=== PATIENT | female | born 1985 | race Two or more races ===

== ENCOUNTER 2018-01-17 01:16 | Inpatient (IN) | payer BC ==
[2018-01-17] MEDS ORDERED: Nalbuphine 10 MG/1 ML Vial IVPUSH PRN (02:03)
[2018-01-17] MEDS ORDERED: Sodium Chloride 0.9% 2.5 ML Syringe FLUSH PRN (02:03)
[2018-01-17] MEDS ORDERED: Misoprostol 25 MCG (1/4 of 100 MCG) Tab VAG PRN ×2 (02:03→06:03)
[2018-01-17] MEDS ORDERED: Tranexamic Acid 1,000 MG in Sodium Chloride 0.9% 100 ML IV PRN (02:03)
[2018-01-17] MEDS ORDERED: Misoprostol 200 MCG Tab PO PRN (02:03)
[2018-01-17] MEDS ORDERED: Lidocaine 1% 50 ML MDV INJECT PRN (02:03)
[2018-01-17] MEDS ORDERED: Terbutaline 1 MG/ML SDV SUBCUT PRN (02:03)
[2018-01-17] MEDS ORDERED: Water For Irrigation,Sterile 1,000 ML Container IRR PRN (02:03)
[2018-01-17] MEDS ORDERED: Sodium Chloride 0.9% 10 ML Syringe FLUSH PRN (02:03)
[2018-01-17] MEDS ORDERED: Carboprost Tromethamine 250 MCG/1 ML Amp IM PRN (02:03)
[2018-01-17] MEDS ORDERED: Methylergonovine 0.2 MG/1 ML Amp IM PRN (02:03)
[2018-01-17] MEDS ORDERED: Oxytocin/0.9 % Sodium Chloride 30 UNIT/500 ML BAG IV SCH ×2 (02:15)
[2018-01-17] MEDS: Lactated Ringers 1,000 ML IV SCH ×4 (02:16→18:27)
[2018-01-17] MEDS: Butorphanol 1 MG/ML SDV IVPUSH PRN ×3 (14:25→17:17)
[2018-01-17] MEDS ORDERED: Ropivacaine 0.2% 2 MG/ML 20 ML SDV ONE (17:21)
--- NOTE | 2018-01-17 17:52 | PCM.PREANE ---
Preanesthetic Assessment - Procedure Proposed Procedure: labor epidural post dates - Anesthesia/Transfusion/Family Hx Anesthesia History: Prior Anesthesia Without Reaction Family History of Anesthesia Reaction: No Transfusion History: No Prior Transfusion(s) - Physical Assessment Height: 5 ft Weight: 103.419 kg ASA Class: 2 Mental Status: Alert & Oriented x3 Airway Class: Mallampati = 2 Dentition: Reports: Normal Dentition Thyro-Mental Finger Breadths: 3 Mouth Opening Finger Breadths: 3 ROM/Head Extension: Full - Lab Values: Laboratory Last Values WBC 9.81 K/uL (4.0-11.0) 01/17/18 02:15 RBC 4.30 M/uL (4.30-5.90) 01/17/18 02:15 Hgb 12.9 g/dL (12.0-16.0) 01/17/18 02:15 Hct 37.3 % (36.0-46.0) 01/17/18 02:15 MCV 86.7 fL (80.0-98.0) 01/17/18 02:15 MCH 30.0 pg (27.0-32.0) 01/17/18 02:15 MCHC 34.6 g/dL (31.0-37.0) 01/17/18 02:15 RDW Std Deviation 43.9 fl (28.0-62.0) 01/17/18 02:15 RDW Coeff of Zachariah 14 % (11.0-15.0) 01/17/18 02:15 Plt Count 214 K/uL (150-400) 01/17/18 02:15 MPV 9.00 fL (7.40-12.00) 01/17/18 02:15 Nucleated RBC % 0.0 /100WBC 01/17/18 02:15 Nucleated RBCs # 0 K/uL 01/17/18 02:15 Blood Type O POSITIVE 01/17/18 02:15 Antibody Screen NEGATIVE 01/17/18 02:15 - Allergies Allergies/Adverse Reactions: Allergies Allergy/AdvReac Type Severity Reaction Status Date / Time seasonal Allergy Mild Wheezing Uncoded 01/17/18 02:02 - Blood Blood Available: Yes Product(s) Available: PRBC - Acknowledgements Anesthesia Type Planned: Epidural Pt an Appropriate Candidate for the Planned Anesthesia: Yes Alternatives and Risks of Anesthesia Discussed w Pt/Guardian: Yes Pt/Guardian Understands and Agrees with Anesthesia Plan: Yes PreAnesthesia Questionnaire 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 USE Smoking Status *Q: Former Smoker Tobacco Use Within Last Twelve Months: No Second Hand Smoke Exposure: No Recreational Drug Use History: No - HOME MEDS Home Medications: Home Meds Acetaminophen [Tylenol] 2 tab PO Q4H PRN 01/17/18 [History] Albuterol Sulfate [Proair Respiclick] 2 puff INH QID PRN 01/17/18 [History] Calcium Carbonate/Vitamin D3 [Calcium 500 mg Chewable Tablet] 1 tab PO BID 01/17 [History] Fexofenadine [Natty] 1 tab PO DAILY 01/17/18 [History] Fish Oil/[place]-3 Fatty Acids [Fish Oil 1,000 MG] 1 cap PO BID 01/17/18 [History] Fluticasone Propionate [Flovent HFA 110 MCG] 2 puff INH BID PRN 01/17/18 [ History] PNV95/Ferrous Fumarate/FA [ Vitamin Tablet] 1 tab PO DAILY 01/17/18 [ History] - CURRENT (IN HOUSE) MEDS Current Meds: Current Medications Butorphanol Tartrate (Stadol) 1 mg IVPUSH Q1H PRN PRN Reason: Pain Last Admin: 01/17/18 17:17 Dose: 1 mg Carboprost Tromethamine (Hemabate Ds) 250 mcg IM ASDIRECTED PRN PRN Reason: Post Hemorrhage Lactated Ringer's (Ringers, Lactated) 1,000 mls @ 150 mls/hr IV ASDIRECTED SUNITHA Last Admin: 01/17/18 17:08 Dose: 999 mls/hr Oxytocin/Sodium Chloride (Oxytocin 30 Unit/500 Ml-Ns) 30 unit in 500 mls @ 999 mls/hr IV TITRATE SUNITHA Oxytocin/Sodium Chloride (Oxytocin 30 Unit/500 Ml-Ns) 30 unit in 500 mls @ 2 mls/hr IV TITRATE SUNITHA; Protocol Last Titration: 01/17/18 15:44 Dose: 20 munits/min, 20 mls/hr Tranexamic Acid 1,000 mg/ (Sodium Chloride) 110 mls @ 660 mls/hr IV ONETIME PRN PRN Reason: Bleeding Lidocaine HCl (Xylocaine 1%) 50 ml INJECT ONETIME PRN PRN Reason: Laceration repair Methylergonovine Maleate (Methergine) 0.2 mg IM ASDIRECTED PRN PRN Reason: Post Hemorrhage Misoprostol (Cytotec) 200 mcg PO ONETIME PRN PRN Reason: Post Hemorrhage Misoprostol (Cytotec) 25 mcg VAG ONETIME PRN PRN Reason: Cervical Ripening Last Admin: 01/17/18 02:29 Dose: 25 mcg Misoprostol (Cytotec) 25 mcg VAG Q4H PRN PRN Reason: Cervical Ripening Last Admin: 01/17/18 06:25 Dose: 25 mcg Nalbuphine HCl (Nubain) 10 mg IVPUSH Q1H PRN PRN Reason: Pain (severe 7-10) Sodium Chloride (Saline Flush) 10 ml FLUSH ASDIRECTED PRN PRN Reason: Keep Vein Open Sodium Chloride (Saline Flush) 2.5 ml FLUSH ASDIRECTED PRN PRN Reason: Keep Vein Open Sterile Water (Sterile Water For Irrigation) 1,000 ml IRR ASDIRECTED PRN PRN Reason: delivery Terbutaline Sulfate (Brethine) 0.25 mg SUBCUT ASDIRECTED PRN PRN Reason: Tacysystole Discontinued Medications Fentanyl/Bupivacaine HCl (Dqffvsoo-Fiesn-Gz 2 Mcg/Ml-0.125%) Confirm Administered Dose 100 mls @ as directed EP .STK-MED ONE Stop: 01/17/18 17:21 Ropivacaine (Naropin 0.2%) Confirm Administered Dose 20 ml .ROUTE .STK-MED ONE Stop: 01/17/18 17:22
[2018-01-17] MEDS ORDERED: Bisacodyl 10 MG Supp RECTAL PRN (21:21)
[2018-01-17] MEDS ORDERED: Witch Hazel Medicated Pads 40/Jar TOP PRN (21:21)
[2018-01-17] MEDS ORDERED: Ondansetron 4 MG/2 ML SDV IVPUSH PRN (21:21)
[2018-01-17] MEDS ORDERED: Simethicone 80 MG Tab.Chew PO PRN (21:21)
[2018-01-17] MEDS ORDERED: Benzocaine/Menthol 20%-0.5% Spray 78 GM Cannister TOP PRN (21:21)
[2018-01-17] MEDS ORDERED: Lanolin 100% Cream 7 GM Tube TOP PRN (21:21)
[2018-01-17] MEDS ORDERED: oxyCODONE 5 MG Tab PO PRN (21:21)
[2018-01-17] MEDS ORDERED: Acetaminophen 500 MG Tab PO PRN ×2 (21:21)
[2018-01-17] MEDS ORDERED: Ibuprofen 400 MG Tab PO PRN (21:21)
--- NOTE | 2018-01-17 21:29 | PCM.DEL ---
<Lorenza Leslie K - Last Filed: 01/17/18 21:24> L & D Note - General Info Date of Service: 01/17/18 Mother's Due Date: 01/13/18 - Delivery Note Labor: Induced by ARM, Induced by Oxytocin Cervical Ripening Method: Misoprostil Delivery Outcome: Livebirth Delivery Method: Spontaneous Vaginal Delivery-Single Presentation: Left Occiput Anterior (RILEY) Nuchal Cord: None Anesthesia Type: Epidural Amniotic Fluid Description: Clear Episiotomy Type: None Laceration: 1st Degree, Perineal Suture type: Vicryl Suture size: 3-0 Placenta: Intact, Spontaneous Cord: 3 Vessels Resuscitation Needed: No : Bulb Syringe, Stimulated, Warmed Score 1 min: 6 Score 5 min: 8 - General Info Date of Service: 01/17/18 - Patient Data Weight - Most Recent: 103.419 kg Lab Results Last 24 Hours: Laboratory Results - last 24 hr 01/17/18 01/17/18 Range/Units 02:15 02:15 WBC 9.81 (4.0-11.0) K/uL RBC 4.30 (4.30-5.90) M/uL Hgb 12.9 (12.0-16.0) g/dL Hct 37.3 (36.0-46.0) % MCV 86.7 (80.0-98.0) fL MCH 30.0 (27.0-32.0) pg MCHC 34.6 (31.0-37.0) g/dL RDW Std Deviation 43.9 (28.0-62.0) fl RDW Coeff of Zachariah 14 (11.0-15.0) % Plt Count 214 (150-400) K/uL MPV 9.00 (7.40-12.00) fL Nucleated RBC % 0.0 /100WBC Nucleated RBCs # 0 K/uL Blood Type O POSITIVE Antibody Screen NEGATIVE Med Orders - Current: Current Medications Acetaminophen (Tylenol Extra Strength) 500 mg PO Q4H PRN PRN Reason: Pain Acetaminophen (Tylenol Extra Strength) 1,000 mg PO Q4H PRN PRN Reason: Pain Benzocaine/Menthol (Dermoplast Pain Relief 20%-0.5% [place]) 78 gm TOP ASDIRECTED PRN PRN Reason: Perineal Comfort Measure Bisacodyl (Dulcolax) 10 mg RECTAL ONETIME PRN PRN Reason: Constipation Butorphanol Tartrate (Stadol) 1 mg IVPUSH Q1H PRN PRN Reason: Pain Last Admin: 01/17/18 17:17 Dose: 1 mg Carboprost Tromethamine (Hemabate Ds) 250 mcg IM ASDIRECTED PRN PRN Reason: Post Hemorrhage Docusate Sodium (Colace) 100 mg PO BID PRN PRN Reason: Constipation Emollient Ointment (Lansinoh Hpa) 0 gm TOP ASDIRECTED PRN PRN Reason: Sore Nipples Lactated Ringer's (Ringers, Lactated) 1,000 mls @ 150 mls/hr IV ASDIRECTED SUNITHA Last Admin: 01/17/18 18:27 Dose: 150 mls/hr Oxytocin/Sodium Chloride (Oxytocin 30 Unit/500 Ml-Ns) 30 unit in 500 mls @ 999 mls/hr IV TITRATE SUNITHA Oxytocin/Sodium Chloride (Oxytocin 30 Unit/500 Ml-Ns) 30 unit in 500 mls @ 2 mls/hr IV TITRATE SUNITHA; Protocol Last Titration: 01/17/18 19:07 Dose: 10 munits/min, 10 mls/hr Tranexamic Acid 1,000 mg/ (Sodium Chloride) 110 mls @ 660 mls/hr IV ONETIME PRN PRN Reason: Bleeding Ibuprofen (Motrin) 400 mg PO Q4H PRN PRN Reason: Pain Ibuprofen (Motrin) 800 mg PO Q6H PRN PRN Reason: Pain Lidocaine HCl (Xylocaine 1%) 50 ml INJECT ONETIME PRN PRN Reason: Laceration repair Methylergonovine Maleate (Methergine) 0.2 mg IM ASDIRECTED PRN PRN Reason: Post Hemorrhage Misoprostol (Cytotec) 200 mcg PO ONETIME PRN PRN Reason: Post Hemorrhage Misoprostol (Cytotec) 25 mcg VAG ONETIME PRN PRN Reason: Cervical Ripening Last Admin: 01/17/18 02:29 Dose: 25 mcg Misoprostol (Cytotec) 25 mcg VAG Q4H PRN PRN Reason: Cervical Ripening Last Admin: 01/17/18 06:25 Dose: 25 mcg Nalbuphine HCl (Nubain) 10 mg IVPUSH Q1H PRN PRN Reason: Pain (severe 7-10) Ondansetron HCl (Zofran) 4 mg IVPUSH Q6H PRN PRN Reason: Nausea/Vomiting Oxycodone HCl (Oxycodone) 5 mg PO Q2H PRN PRN Reason: Pain Simethicone (Simethicone) 80 mg PO Q4H PRN PRN Reason: Gas Sodium Chloride (Saline Flush) 10 ml FLUSH ASDIRECTED PRN PRN Reason: Keep Vein Open Sodium Chloride (Saline Flush) 2.5 ml FLUSH ASDIRECTED PRN PRN Reason: Keep Vein Open Sterile Water (Sterile Water For Irrigation) 1,000 ml IRR ASDIRECTED PRN PRN Reason: delivery Terbutaline Sulfate (Brethine) 0.25 mg SUBCUT ASDIRECTED PRN PRN Reason: Tacysystole Witch Swetha (Tucks) 1 pad TOP ASDIRECTED PRN PRN Reason: comfort care Discontinued Medications Fentanyl/Bupivacaine HCl (Jylpwlwv-Jnysf-Lf 2 Mcg/Ml-0.125%) Confirm Administered Dose 100 mls @ as directed EP .STK-MED ONE Stop: 01/17/18 17:21 Ropivacaine (Naropin 0.2%) Confirm Administered Dose 20 ml .ROUTE .STK-MED ONE Stop: 01/17/18 17:22 - Problem List & Annotations (1) Normal spontaneous vaginal delivery SNOMED Code(s): 39385127 Code(s): O80 - ENCOUNTER FOR FULL-TERM UNCOMPLICATED DELIVERY Status: Acute Current Visit: Yes - Problem List Review Problem List Initiated/Reviewed/Updated: Yes <Queenie Kirk - Last Filed: 01/18/18 08:40> - Patient Data Vitals - Most Recent: Last Vital Signs Temp 36.7 C 01/18/18 05:09 Pulse 82 01/18/18 05:09 Resp 18 01/18/18 08:39 BP 105/62 01/18/18 05:09 Pulse Ox 97 01/18/18 05:09 Lab Results Last 24 Hours: Laboratory Results - last 24 hr 01/18/18 Range/Units 05:15 Hgb 11.6 L (12.0-16.0) g/dL Hct 33.5 L (36.0-46.0) % Med Orders - Current: Current Medications Acetaminophen (Tylenol Extra Strength) 500 mg PO Q4H PRN PRN Reason: Pain Acetaminophen (Tylenol Extra Strength) 1,000 mg PO Q4H PRN PRN Reason: Pain Benzocaine/Menthol (Dermoplast Pain Relief 20%-0.5% [place]) 0 gm TOP ASDIRECTED PRN PRN Reason: Perineal Comfort Measure Last Admin: 01/17/18 23:05 Dose: 78 gm Bisacodyl (Dulcolax) 10 mg RECTAL ONETIME PRN PRN Reason: Constipation Butorphanol Tartrate (Stadol) 1 mg IVPUSH Q1H PRN PRN Reason: Pain Last Admin: 01/17/18 17:17 Dose: 1 mg Carboprost Tromethamine (Hemabate Ds) 250 mcg IM ASDIRECTED PRN PRN Reason: Post Hemorrhage Docusate Sodium (Colace) 100 mg PO BID PRN PRN Reason: Constipation Last Admin: 01/17/18 23:06 Dose: 100 mg Emollient Ointment (Lansinoh Hpa) 0 gm TOP ASDIRECTED PRN PRN Reason: Sore Nipples Last Admin: 01/17/18 23:06 Dose: 7 gm Lactated Ringer's (Ringers, Lactated) 1,000 mls @ 150 mls/hr IV ASDIRECTED SUNITHA Last Admin: 01/17/18 18:27 Dose: 150 mls/hr Oxytocin/Sodium Chloride (Oxytocin 30 Unit/500 Ml-Ns) 30 unit in 500 mls @ 999 mls/hr IV TITRATE SUNITHA Oxytocin/Sodium Chloride (Oxytocin 30 Unit/500 Ml-Ns) 30 unit in 500 mls @ 2 mls/hr IV TITRATE SUNITHA; Protocol Last Titration: 01/17/18 21:20 Dose: Infused Tranexamic Acid 1,000 mg/ (Sodium Chloride) 110 mls @ 660 mls/hr IV ONETIME PRN PRN Reason: Bleeding Ibuprofen (Motrin) 400 mg PO Q4H PRN PRN Reason: Pain Ibuprofen (Motrin) 800 mg PO Q6H PRN PRN Reason: Pain Last Admin: 01/17/18 23:05 Dose: 800 mg Lidocaine HCl (Xylocaine 1%) 50 ml INJECT ONETIME PRN PRN Reason: Laceration repair Methylergonovine Maleate (Methergine) 0.2 mg IM ASDIRECTED PRN PRN Reason: Post Hemorrhage Misoprostol (Cytotec) 200 mcg PO ONETIME PRN PRN Reason: Post Hemorrhage Misoprostol (Cytotec) 25 mcg VAG ONETIME PRN PRN Reason: Cervical Ripening Last Admin: 01/17/18 02:29 Dose: 25 mcg Misoprostol (Cytotec) 25 mcg VAG Q4H PRN PRN Reason: Cervical Ripening Last Admin: 01/17/18 06:25 Dose: 25 mcg Nalbuphine HCl (Nubain) 10 mg IVPUSH Q1H PRN PRN Reason: Pain (severe 7-10) Ondansetron HCl (Zofran) 4 mg IVPUSH Q6H PRN PRN Reason: Nausea/Vomiting Oxycodone HCl (Oxycodone) 5 mg PO Q2H PRN PRN Reason: Pain Simethicone (Simethicone) 80 mg PO Q4H PRN PRN Reason: Gas Sodium Chloride (Saline Flush) 10 ml FLUSH ASDIRECTED PRN PRN Reason: Keep Vein Open Sodium Chloride (Saline Flush) 2.5 ml FLUSH ASDIRECTED PRN PRN Reason: Keep Vein Open Sterile Water (Sterile Water For Irrigation) 1,000 ml IRR ASDIRECTED PRN PRN Reason: delivery Terbutaline Sulfate (Brethine) 0.25 mg SUBCUT ASDIRECTED PRN PRN Reason: Tacysystole Witch Swetha (Tucks) 1 pad TOP ASDIRECTED PRN PRN Reason: comfort care Last Admin: 01/17/18 23:04 Dose: 1 pad Discontinued Medications Fentanyl/Bupivacaine HCl (Xpxhkmmd-Ymkls-Ke 2 Mcg/Ml-0.125%) Confirm Administered Dose 100 mls @ as directed EP .STK-MED ONE Stop: 01/17/18 17:21 Ropivacaine (Naropin 0.2%) Confirm Administered Dose 20 ml .ROUTE .STK-MED ONE Stop: 01/17/18 17:22 - My Orders Last 24 Hours: My Active Orders 01/17/18 21:21 Patient Status [ADT] Routine May Shower [RC] ASDIRECTED Acetaminophen [Tylenol Extra Strength] 1,000 mg PO Q4H PRN Acetaminophen [Tylenol Extra Strength] 500 mg PO Q4H PRN Benzocaine/Menthol [Dermoplast Pain Relief 20%-0.5% [place]] 0 gm TOP ASDIRECTED PRN Bisacodyl [Dulcolax] 10 mg RECTAL ONETIME PRN Docusate Sodium [Colace] 100 mg PO BID PRN Ibuprofen [Motrin] 400 mg PO Q4H PRN Ibuprofen [Motrin] 800 mg PO Q6H PRN Lanolin [Lansinoh HPA] See Dose Instructions TOP ASDIRECTED PRN Ondansetron [Zofran] 4 mg IVPUSH Q6H PRN Simethicone 80 mg PO Q4H PRN Witch Swetha [Tucks] 1 pad TOP ASDIRECTED PRN oxyCODONE 5 mg PO Q2H PRN Assess Lochia [WOMSER] Per Unit Routine Assess Uterine Involution [WOMSER] Per Unit Routine Peripheral IV Discontinue [OM.PC] Routine 01/17/18 21:22 Ice Therapy [OM.PC] Per Unit Routine Perineal Care [OM.PC] Per Unit Routine 01/17/18 Dinner Regular Diet [DIET] - Plan Plan:: Reviewed and agree
[2018-01-17] MEDS: Ibuprofen 800 MG Tab PO PRN (23:05)
[2018-01-17] MEDS: Docusate Sodium 100 MG Cap PO PRN (23:06)
--- NOTE | 2018-01-18 07:15 | PCM.PN ---
<Lorenza Leslie - Last Filed: 01/18/18 07:18> - General Info Date of Service: 01/18/18 Subjective Update: Fauzia Bennett is a 32yo who is PPD#1 from , repair of first degree perineal laceration. Doing well, no concerns this AM. baby and feels this is going well. Pain is minimal. Lochia blood-tinged and decreasing. Urinating with some perineal pain but no hesitancy. Appetite is good, tolerating diet without nausea. Ambulating to and from bathroom without issue. - Review of Systems General: Reports: No Symptoms HEENT: Reports: No Symptoms Pulmonary: Reports: No Symptoms Cardiovascular: Reports: No Symptoms Gastrointestinal: Reports: No Symptoms Genitourinary: Reports: Other (Perineal pain) Musculoskeletal: Reports: No Symptoms Skin: Reports: No Symptoms Neurological: Reports: No Symptoms Psychiatric: Reports: No Symptoms - Patient Data Vitals - Most Recent: Last Vital Signs Temp 98.1 F 01/18/18 05:09 Pulse 82 01/18/18 05:09 Resp 18 01/18/18 05:09 BP 105/62 01/18/18 05:09 Pulse Ox 97 01/18/18 05:09 Weight - Most Recent: 103.419 kg Lab Results Last 24 Hours: Laboratory Results - last 24 hr 01/18/18 Range/Units 05:15 Hgb 11.6 L (12.0-16.0) g/dL Hct 33.5 L (36.0-46.0) % Med Orders - Current: Current Medications Acetaminophen (Tylenol Extra Strength) 500 mg PO Q4H PRN PRN Reason: Pain Acetaminophen (Tylenol Extra Strength) 1,000 mg PO Q4H PRN PRN Reason: Pain Benzocaine/Menthol (Dermoplast Pain Relief 20%-0.5% [place]) 0 gm TOP ASDIRECTED PRN PRN Reason: Perineal Comfort Measure Last Admin: 01/17/18 23:05 Dose: 78 gm Bisacodyl (Dulcolax) 10 mg RECTAL ONETIME PRN PRN Reason: Constipation Butorphanol Tartrate (Stadol) 1 mg IVPUSH Q1H PRN PRN Reason: Pain Last Admin: 01/17/18 17:17 Dose: 1 mg Carboprost Tromethamine (Hemabate Ds) 250 mcg IM ASDIRECTED PRN PRN Reason: Post Hemorrhage Docusate Sodium (Colace) 100 mg PO BID PRN PRN Reason: Constipation Last Admin: 01/17/18 23:06 Dose: 100 mg Emollient Ointment (Lansinoh Hpa) 0 gm TOP ASDIRECTED PRN PRN Reason: Sore Nipples Last Admin: 01/17/18 23:06 Dose: 7 gm Lactated Ringer's (Ringers, Lactated) 1,000 mls @ 150 mls/hr IV ASDIRECTED SUNITHA Last Admin: 01/17/18 18:27 Dose: 150 mls/hr Oxytocin/Sodium Chloride (Oxytocin 30 Unit/500 Ml-Ns) 30 unit in 500 mls @ 999 mls/hr IV TITRATE SUNITHA Oxytocin/Sodium Chloride (Oxytocin 30 Unit/500 Ml-Ns) 30 unit in 500 mls @ 2 mls/hr IV TITRATE SUNITHA; Protocol Last Titration: 01/17/18 21:20 Dose: Infused Tranexamic Acid 1,000 mg/ (Sodium Chloride) 110 mls @ 660 mls/hr IV ONETIME PRN PRN Reason: Bleeding Ibuprofen (Motrin) 400 mg PO Q4H PRN PRN Reason: Pain Ibuprofen (Motrin) 800 mg PO Q6H PRN PRN Reason: Pain Last Admin: 01/17/18 23:05 Dose: 800 mg Lidocaine HCl (Xylocaine 1%) 50 ml INJECT ONETIME PRN PRN Reason: Laceration repair Methylergonovine Maleate (Methergine) 0.2 mg IM ASDIRECTED PRN PRN Reason: Post Hemorrhage Misoprostol (Cytotec) 200 mcg PO ONETIME PRN PRN Reason: Post Hemorrhage Misoprostol (Cytotec) 25 mcg VAG ONETIME PRN PRN Reason: Cervical Ripening Last Admin: 01/17/18 02:29 Dose: 25 mcg Misoprostol (Cytotec) 25 mcg VAG Q4H PRN PRN Reason: Cervical Ripening Last Admin: 01/17/18 06:25 Dose: 25 mcg Nalbuphine HCl (Nubain) 10 mg IVPUSH Q1H PRN PRN Reason: Pain (severe 7-10) Ondansetron HCl (Zofran) 4 mg IVPUSH Q6H PRN PRN Reason: Nausea/Vomiting Oxycodone HCl (Oxycodone) 5 mg PO Q2H PRN PRN Reason: Pain Simethicone (Simethicone) 80 mg PO Q4H PRN PRN Reason: Gas Sodium Chloride (Saline Flush) 10 ml FLUSH ASDIRECTED PRN PRN Reason: Keep Vein Open Sodium Chloride (Saline Flush) 2.5 ml FLUSH ASDIRECTED PRN PRN Reason: Keep Vein Open Sterile Water (Sterile Water For Irrigation) 1,000 ml IRR ASDIRECTED PRN PRN Reason: delivery Terbutaline Sulfate (Brethine) 0.25 mg SUBCUT ASDIRECTED PRN PRN Reason: Tacysystole Witch Swetha (Tucks) 1 pad TOP ASDIRECTED PRN PRN Reason: comfort care Last Admin: 01/17/18 23:04 Dose: 1 pad Discontinued Medications Fentanyl/Bupivacaine HCl (Xlsfddft-Bhgec-Rt 2 Mcg/Ml-0.125%) Confirm Administered Dose 100 mls @ as directed EP .STK-MED ONE Stop: 01/17/18 17:21 Ropivacaine (Naropin 0.2%) Confirm Administered Dose 20 ml .ROUTE .STK-MED ONE Stop: 01/17/18 17:22 - Exam General: Alert, Oriented Lungs: Clear to Auscultation, Normal Respiratory Effort Cardiovascular: Regular Rate, Regular Rhythm, No Murmurs GI/Abdominal Exam: Normal Bowel Sounds, Soft, Non-Tender (Female) Exam: No: Uterine Tenderness Extremities: Other (No calf tenderness) Peripheral Pulses: 2+: Posterior Tibial (L), Posterior Tibial (R), Dorsalis Pedis (L), Dorsalis Pedis (R) Skin: Warm, Dry Neurological: No New Focal Deficit Psy/Mental Status: Normal Affect, Normal Mood - Problem List & Annotations (1) Normal spontaneous vaginal delivery SNOMED Code(s): 77529988 Code(s): O80 - ENCOUNTER FOR FULL-TERM UNCOMPLICATED DELIVERY Status: Acute Current Visit: Yes - Problem List Review Problem List Initiated/Reviewed/Updated: Yes - Assessment Assessment:: Fauzia Bennett is a 32yo who is PPD#1 from and repair of 1st degree perineal laceration. Doing well, VS and labs reassuring. - Plan Plan:: Continue routine cares. Encouraged ambulation. Plans to eat and shower this AM and thinking about discharge home this evening. Discussed that she should continue PNV while . Can use ibuprofen/ tyelenol for pain at home. Pelvic rest for 6 weeks. Call if fever or bleeding through 1 or more large pads per hour. Follow-up with [facility] in 6 weeks. <Gina Patel - Last Filed: 01/18/18 08:37> - General Info Functional Status: Reports: Pain Controlled, Tolerating Diet, Ambulating, Urinating - Patient Data Vitals - Most Recent: Last Vital Signs Temp 36.7 C 01/18/18 05:09 Pulse 82 01/18/18 05:09 Resp 18 01/18/18 05:09 BP 105/62 01/18/18 05:09 Pulse Ox 97 01/18/18 05:09 Lab Results Last 24 Hours: Laboratory Results - last 24 hr 01/18/18 Range/Units 05:15 Hgb 11.6 L (12.0-16.0) g/dL Hct 33.5 L (36.0-46.0) % Med Orders - Current: Current Medications Acetaminophen (Tylenol Extra Strength) 500 mg PO Q4H PRN PRN Reason: Pain Acetaminophen (Tylenol Extra Strength) 1,000 mg PO Q4H PRN PRN Reason: Pain Benzocaine/Menthol (Dermoplast Pain Relief 20%-0.5% [place]) 0 gm TOP ASDIRECTED PRN PRN Reason: Perineal Comfort Measure Last Admin: 01/17/18 23:05 Dose: 78 gm Bisacodyl (Dulcolax) 10 mg RECTAL ONETIME PRN PRN Reason: Constipation Butorphanol Tartrate (Stadol) 1 mg IVPUSH Q1H PRN PRN Reason: Pain Last Admin: 01/17/18 17:17 Dose: 1 mg Carboprost Tromethamine (Hemabate Ds) 250 mcg IM ASDIRECTED PRN PRN Reason: Post Hemorrhage Docusate Sodium (Colace) 100 mg PO BID PRN PRN Reason: Constipation Last Admin: 01/17/18 23:06 Dose: 100 mg Emollient Ointment (Lansinoh Hpa) 0 gm TOP ASDIRECTED PRN PRN Reason: Sore Nipples Last Admin: 01/17/18 23:06 Dose: 7 gm Lactated Ringer's (Ringers, Lactated) 1,000 mls @ 150 mls/hr IV ASDIRECTED SUNITHA Last Admin: 01/17/18 18:27 Dose: 150 mls/hr Oxytocin/Sodium Chloride (Oxytocin 30 Unit/500 Ml-Ns) 30 unit in 500 mls @ 999 mls/hr IV TITRATE SUNITHA Oxytocin/Sodium Chloride (Oxytocin 30 Unit/500 Ml-Ns) 30 unit in 500 mls @ 2 mls/hr IV TITRATE SUNITHA; Protocol Last Titration: 01/17/18 21:20 Dose: Infused Tranexamic Acid 1,000 mg/ (Sodium Chloride) 110 mls @ 660 mls/hr IV ONETIME PRN PRN Reason: Bleeding Ibuprofen (Motrin) 400 mg PO Q4H PRN PRN Reason: Pain Ibuprofen (Motrin) 800 mg PO Q6H PRN PRN Reason: Pain Last Admin: 01/17/18 23:05 Dose: 800 mg Lidocaine HCl (Xylocaine 1%) 50 ml INJECT ONETIME PRN PRN Reason: Laceration repair Methylergonovine Maleate (Methergine) 0.2 mg IM ASDIRECTED PRN PRN Reason: Post Hemorrhage Misoprostol (Cytotec) 200 mcg PO ONETIME PRN PRN Reason: Post Hemorrhage Misoprostol (Cytotec) 25 mcg VAG ONETIME PRN PRN Reason: Cervical Ripening Last Admin: 01/17/18 02:29 Dose: 25 mcg Misoprostol (Cytotec) 25 mcg VAG Q4H PRN PRN Reason: Cervical Ripening Last Admin: 01/17/18 06:25 Dose: 25 mcg Nalbuphine HCl (Nubain) 10 mg IVPUSH Q1H PRN PRN Reason: Pain (severe 7-10) Ondansetron HCl (Zofran) 4 mg IVPUSH Q6H PRN PRN Reason: Nausea/Vomiting Oxycodone HCl (Oxycodone) 5 mg PO Q2H PRN PRN Reason: Pain Simethicone (Simethicone) 80 mg PO Q4H PRN PRN Reason: Gas Sodium Chloride (Saline Flush) 10 ml FLUSH ASDIRECTED PRN PRN Reason: Keep Vein Open Sodium Chloride (Saline Flush) 2.5 ml FLUSH ASDIRECTED PRN PRN Reason: Keep Vein Open Sterile Water (Sterile Water For Irrigation) 1,000 ml IRR ASDIRECTED PRN PRN Reason: delivery Terbutaline Sulfate (Brethine) 0.25 mg SUBCUT ASDIRECTED PRN PRN Reason: Tacysystole Reynaldo [place] (Tucks) 1 pad TOP ASDIRECTED PRN PRN Reason: comfort care Last Admin: 01/17/18 23:04 Dose: 1 pad Discontinued Medications Fentanyl/Bupivacaine HCl (Izwlqsna-Etglk-Ay 2 Mcg/Ml-0.125%) Confirm Administered Dose 100 mls @ as directed EP .STK-MED ONE Stop: 01/17/18 17:21 Ropivacaine (Naropin 0.2%) Confirm Administered Dose 20 ml .ROUTE .STK-MED ONE Stop: 01/17/18 17:22 - Plan Plan:: 32 yo P2 s/p PPD 1 , stable Plan: Routine care Discharge home tomorrow
--- NOTE | 2018-01-18 07:41 | OR ---
SURGEON: Queenie Kirk M.D. DATE OF PROCEDURE: 01/17/2018 PRIMARY SURGEON: Queenie Kirk M.D. PREOPERATIVE DIAGNOSES: 1. 40 weeks 4 day intrauterine . 2. Induction of labor for postdates . POSTOPERATIVE DIAGNOSES: 1. 40 weeks 4 day intrauterine . 2. Induction of labor for postdates . PROCEDURE: Spontaneous vaginal delivery, repair of first-degree perineal laceration. J[employer] SALES ASSOCIATE: Lorenza Leslie MS4. ANESTHESIA: Epidural. ESTIMATED BLOOD LOSS: 350 mL. COMPLICATIONS: None. FINDINGS: Viable female, scores 6 at one minute and 8 at five minutes. Weight is 3730 g. Spontaneous delivery, intact placenta with 3-vessel cord. DISPOSITION: The patient is in LDRP and infant is with mother at this time. PROCEDURE IN DETAIL: Fauzia Bennett is a 32-year-old, G3, P1-0-1-1 female at 40 weeks and 4 days gestation, who presented overnight for induction of labor for postdates . She was admitted around midnight, routine labs were drawn, IV hydration was initiated. Initial exam showed her cervix to be 1 cm dilated, 50% effaced, and -3 station. So a first dose of Cytotec 25 mcg was given at 0230 hours. Around 6:30 a.m., cervical exam was 1 cm dilated, 70% effaced, -3 station, and a second dose of Cytotec was placed. At 10:30 a.m., Pitocin was initiated. By 11:00 a.m., she was 4 cm dilated, 70% effaced, -3 station and amniotomy was performed with return of clear fluid. The Pitocin was titrated up. Around 4:00 p.m., she became more uncomfortable with regular contractions that she could not breathe through, and therefore requested epidural. This was placed and she became more comfortable by 6:00 p.m. At that time, her cervical exam showed 6 cm dilated, 80% effaced, -1 station. By 8:30 p.m., she was found to be completely dilated, 100% effaced, +1 station. I was called for delivery. Upon my arrival, the patient was placed in the modified dorsal lithotomy position, was prepped and draped in the usual aseptic manner. With continued pushing efforts, she was able to deliver the infant's head atraumatically, spontaneously, followed by anterior shoulder, posterior shoulder, and remainder of the body without difficulty. The infant's oropharynx and nares were bulb suctioned, and vigorous tactile stimulation was applied. Cord was clamped x2 and cut, and handed to attending nursing staff. Attention was turned to mother and cord arterial, cord venous, and cord blood sampling were obtained. Light pressure was applied while the placenta was delivered spontaneously intact. Vigorous fundal uterine massage was applied while 30 units of Pitocin was delivered in 500 mL of IV fluid. Upon inspection of cervix, vaginal sidewalls, and perineum, a first-degree perineal laceration was found. This was repaired in the usual fashion with [id number] 3-0 Vicryl suture. The uterus remained firm and hemostasis was evident. Sponge and needle counts were correct. scores were 6 and 8, was vigorously crying with continued tactile stimulation, warming, and bulb suctioning. Both the patient and baby remain in LDRP and are in good condition. DATE/TIME AMBROSE Kaye / VADIM /[id number] Reviewed and agree with above MTDD
--- NOTE | 2018-01-18 08:39 | PCM48HPAN ---
Post Anesthesia Note - EVALUATION WITHIN 48HRS OF ANESTHETIC Vital Signs in Normal Range: Yes Patient Participated in Evaluation: Yes Respiratory Function Stable: Yes Airway Patent: Yes Cardiovascular Function Stable: Yes Hydration Status Stable: Yes Pain Control Satisfactory: Yes Nausea and Vomiting Control Satisfactory: Yes Mental Status Recovered: Yes Resp Rate: 18
[2018-01-18] MEDS: Docusate Sodium 100 MG Cap PO PRN (13:35)
[2018-01-19] MEDS: Ibuprofen 800 MG Tab PO PRN (00:59)
[2018-01-19] MEDS: Docusate Sodium 100 MG Cap PO PRN (01:00)
--- NOTE | 2018-01-19 08:42 | PCM.PNPP ---
- General Info Date of Service: 01/19/18 Subjective Update: 32 yo P2 s/p stable PPD 2 Functional Status: Reports: Pain Controlled, Tolerating Diet, Ambulating, Urinating - Review of Systems General: Reports: No Symptoms HEENT: Reports: No Symptoms Pulmonary: Reports: No Symptoms Cardiovascular: Reports: No Symptoms Gastrointestinal: Reports: No Symptoms Genitourinary: Reports: No Symptoms Musculoskeletal: Reports: No Symptoms Skin: Reports: No Symptoms Neurological: Reports: No Symptoms Psychiatric: Reports: No Symptoms - General Info Date of Service: 01/19/18 - Patient Data Vital Signs - Most Recent: Last Vital Signs Temp 36.5 C 01/19/18 08:00 Pulse 76 01/19/18 08:00 Resp 16 01/19/18 08:00 BP 108/82 01/19/18 08:00 Pulse Ox 98 01/19/18 08:00 Weight - Most Recent: 103.419 kg Med Orders - Current: Current Medications Acetaminophen (Tylenol Extra Strength) 500 mg PO Q4H PRN PRN Reason: Pain Acetaminophen (Tylenol Extra Strength) 1,000 mg PO Q4H PRN PRN Reason: Pain Benzocaine/Menthol (Dermoplast Pain Relief 20%-0.5% [place]) 0 gm TOP ASDIRECTED PRN PRN Reason: Perineal Comfort Measure Last Admin: 01/17/18 23:05 Dose: 78 gm Bisacodyl (Dulcolax) 10 mg RECTAL ONETIME PRN PRN Reason: Constipation Butorphanol Tartrate (Stadol) 1 mg IVPUSH Q1H PRN PRN Reason: Pain Last Admin: 01/17/18 17:17 Dose: 1 mg Carboprost Tromethamine (Hemabate Ds) 250 mcg IM ASDIRECTED PRN PRN Reason: Post Hemorrhage Docusate Sodium (Colace) 100 mg PO BID PRN PRN Reason: Constipation Last Admin: 01/19/18 01:00 Dose: 100 mg Emollient Ointment (Lansinoh Hpa) 0 gm TOP ASDIRECTED PRN PRN Reason: Sore Nipples Last Admin: 01/17/18 23:06 Dose: 7 gm Lactated Ringer's (Ringers, Lactated) 1,000 mls @ 150 mls/hr IV ASDIRECTED SUNITHA Last Admin: 01/17/18 18:27 Dose: 150 mls/hr Oxytocin/Sodium Chloride (Oxytocin 30 Unit/500 Ml-Ns) 30 unit in 500 mls @ 999 mls/hr IV TITRATE SUNITHA Oxytocin/Sodium Chloride (Oxytocin 30 Unit/500 Ml-Ns) 30 unit in 500 mls @ 2 mls/hr IV TITRATE SUNITHA; Protocol Last Titration: 01/17/18 21:20 Dose: Infused Tranexamic Acid 1,000 mg/ (Sodium Chloride) 110 mls @ 660 mls/hr IV ONETIME PRN PRN Reason: Bleeding Ibuprofen (Motrin) 400 mg PO Q4H PRN PRN Reason: Pain Ibuprofen (Motrin) 800 mg PO Q6H PRN PRN Reason: Pain Last Admin: 01/19/18 00:59 Dose: 800 mg Lidocaine HCl (Xylocaine 1%) 50 ml INJECT ONETIME PRN PRN Reason: Laceration repair Methylergonovine Maleate (Methergine) 0.2 mg IM ASDIRECTED PRN PRN Reason: Post Hemorrhage Misoprostol (Cytotec) 200 mcg PO ONETIME PRN PRN Reason: Post Hemorrhage Misoprostol (Cytotec) 25 mcg VAG ONETIME PRN PRN Reason: Cervical Ripening Last Admin: 01/17/18 02:29 Dose: 25 mcg Misoprostol (Cytotec) 25 mcg VAG Q4H PRN PRN Reason: Cervical Ripening Last Admin: 01/17/18 06:25 Dose: 25 mcg Nalbuphine HCl (Nubain) 10 mg IVPUSH Q1H PRN PRN Reason: Pain (severe 7-10) Ondansetron HCl (Zofran) 4 mg IVPUSH Q6H PRN PRN Reason: Nausea/Vomiting Oxycodone HCl (Oxycodone) 5 mg PO Q2H PRN PRN Reason: Pain Simethicone (Simethicone) 80 mg PO Q4H PRN PRN Reason: Gas Sodium Chloride (Saline Flush) 10 ml FLUSH ASDIRECTED PRN PRN Reason: Keep Vein Open Sodium Chloride (Saline Flush) 2.5 ml FLUSH ASDIRECTED PRN PRN Reason: Keep Vein Open Sterile Water (Sterile Water For Irrigation) 1,000 ml IRR ASDIRECTED PRN PRN Reason: delivery Terbutaline Sulfate (Brethine) 0.25 mg SUBCUT ASDIRECTED PRN PRN Reason: Tacysystole Witch Swetha (Tucks) 1 pad TOP ASDIRECTED PRN PRN Reason: comfort care Last Admin: 01/17/18 23:04 Dose: 1 pad Discontinued Medications Fentanyl/Bupivacaine HCl ([id number] 2 Mcg/Ml-0.125%) Confirm Administered Dose 100 mls @ as directed EP .STK-MED ONE Stop: 01/17/18 17:21 Ropivacaine (Naropin 0.2%) Confirm Administered Dose 20 ml .ROUTE .STK-MED ONE Stop: 01/17/18 17:22 - Interaction Support Person: - Recovery Exam Fundal Tone: Firm Fundal Level: 1 Fingerbreadths Below Umbilicus Fundal Placement: Midline Lochia Amount: Scant Lochia Color: Rubra/Red Perineum Description: Intact, Minimal Bruising/Swelling Other Perinuem Description: First degree tear,repaired Episiotomy/Laceration: None Bladder Status: Voiding Urinary Elimination: Voided - Exam General: Alert, Oriented HEENT: Pupils Equal, Pupils Reactive Neck: Supple Lungs: Clear to Auscultation, Normal Respiratory Effort Cardiovascular: Regular Rate, Regular Rhythm GI/Abdominal Exam: Normal Bowel Sounds Extremities: Normal Inspection Neurological: No New Focal Deficit - Problem List & Annotations (1) Normal spontaneous vaginal delivery SNOMED Code(s): 04688756 Code(s): O80 - ENCOUNTER FOR FULL-TERM UNCOMPLICATED DELIVERY Status: Acute Current Visit: Yes - Problem List Review Problem List Initiated/Reviewed/Updated: Yes - Assessment Assessment:: Fauzia Bennett is a 32yo who is PPD#2 , - Plan Plan:: Discharge home
== END 2018-01-19 10:25 | disposition home or self-care (01) | DRG 560 ==
LOC: MW.OBCHECK 01:16 → MW.OB 01:19 → MW.OBCHECK 02:03 → OBSVTOIN 20:57 → MW.OB 01-18 01:30
PROVIDERS: ADMIT Obstetrics & Gynecology; ATTEND Obstetrics & Gynecology
PROC: 10E0XZZ Delivery of Products of Conception, External Approach (ICD-10-PCS; principal; 2018-01-17)
PROC: 0HQ9XZZ Repair Perineum Skin, External Approach (ICD-10-PCS; 2018-01-17)
PROC: 3E0P7VZ Introduction of Hormone into Female Reproductive, Via Natural or Artificial Opening (ICD-10-PCS; 2018-01-17)
PROC: 10907ZC Drainage of Amniotic Fluid, Therapeutic from Products of Conception, Via Natural or Artificial Opening (ICD-10-PCS; 2018-01-17)
PROC: 3E033VJ Introduction of Other Hormone into Peripheral Vein, Percutaneous Approach (ICD-10-PCS; 2018-01-17)
PROC: 00HU33Z Insertion of Infusion Device into Spinal Canal, Percutaneous Approach (ICD-10-PCS; 2018-01-17)
DX: O70.0 First degree perineal laceration during delivery (principal); O48.0 Post-term pregnancy; Z3A.40 40 weeks gestation of pregnancy; Z37.0 Single live birth
CPT/HCPCS: 36415; 51702; 59025; 59409; 85014; 85018; 85027; 86850; 86900; 86901; 90686; A9270-GY; G0008; J0595; J2590; J2795; J7120

== ENCOUNTER 2019-07-22 16:09 | Observation (INO) | payer BC, OTHER ==
[2019-07-22] MEDS ORDERED: Sodium Chloride 0.9% 1,000 ML IV ONE ×2 (18:08→19:03)
[2019-07-22] MEDS ORDERED: Ondansetron 4 MG/2 ML SDV IVPUSH ONE (18:16)
--- NOTE | 2019-07-22 18:22 | EDM.PDOC ---
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 Most recent set of vitals blood pressure is 129/60 with a pulse under 100. Patient is receiving another liter of fluids. Patient has received antibiotics fluids and blood. Presumably for a UTI at this time. I agree with assessment and noted above. - Related Data Allergies Allergy/AdvReac Type Severity Reaction Status Date / Time seasonal Allergy Mild Wheezing Uncoded 07/22/19 17:36 Home Meds: Home Meds Acetaminophen [Tylenol] 2 tab PO Q4H PRN 01/17/18 [History] Albuterol Sulfate [Proair Respiclick] 2 puff INH QID PRN 01/17/18 [History] Calcium Carbonate/Vitamin D3 [Calcium 500 mg Chewable Tablet] 1 tab PO BID 01/17 [History] Fexofenadine [Natty] 1 tab PO DAILY 01/17/18 [History] Fish Oil/Gerry-3 Fatty Acids [Fish Oil 1,000 MG] 1 cap PO BID 01/17/18 [History] Fluticasone Propionate [Flovent HFA 110 MCG] 2 puff INH BID PRN 01/17/18 [ History] Pnv No.95/Ferrous Fum/Folic AC [ Vitamin Tablet] 1 tab PO DAILY [History] Course - Vital Signs Last Recorded V/S: Last Vital Signs Temp 99.0 F 07/22/19 17:37 Pulse 101 H 07/22/19 17:37 Resp 20 07/22/19 17:37 BP 119/50 L 07/22/19 17:37 Pulse Ox 99 07/22/19 17:37 Orthostatic Blood Pressure [ 94/62 Standing] Orthostatic Blood Pressure [ 102/56 Sitting] Orthostatic Blood Pressure [ 118/63 Supine] - Orders/Labs/Meds Orders: Active Orders 24 hr Category Date Time Status EKG Documentation Completion [RC] STAT Care 07/22/19 18:17 Active Orthostatic Vital Signs [RC] ASDIRECTED Care 07/22/19 18:17 Active Verify Patient Consent Obtain [RC] ASDIRECTED Care 07/22/19 18:48 Active Transvaginal Non OB [US] Stat Exams 07/22/19 18:16 Ordered CORONAVIRUS (COVID-19) PCR [MREF] Stat Lab 07/22/19 19:07 Ordered CULTURE BLOOD [BC] Stat Lab 07/22/19 18:28 Received CULTURE BLOOD [BC] Stat Lab 07/22/19 18:30 Received CULTURE URINE [RM] Stat Lab 07/22/19 18:30 Received RED BLOOD CELLS LP [BBK] Stat Lab 07/22/19 19:25 Results TYPE AND SCREEN [BBK] Stat Lab 07/22/19 19:25 Results Sodium Chloride 0.9% [Normal Saline] 1,000 ml Med 07/22/19 19:03 Active IV STAT Blood Culture x2 Reflex Set [OM.PC] Stat Oth 07/22/19 18:16 Ordered Isolation [COMM] Routine Oth 07/22/19 18:15 Active Transfuse Red Blood Cells [COMM] Stat Oth 07/22/19 18:48 Ordered Medication Orders Sodium Chloride (Normal Saline) 1,000 mls @ 999 mls/hr IV STAT ONE Stop: 07/22/19 20:03 Last Admin: 07/22/19 19:58 Dose: 999 mls/hr Labs: Laboratory Tests 07/22/19 07/22/19 07/22/19 Range/Units 18:30 18:30 18:30 WBC 10.18 (4.0-11.0) K/uL RBC 2.05 L (4.30-5.90) M/uL Hgb 6.2 L (12.0-16.0) g/dL Hct 18.0 L (36.0-46.0) % MCV 87.8 (80.0-98.0) fL MCH 30.2 (27.0-32.0) pg MCHC 34.4 (31.0-37.0) g/dL RDW Std Deviation 44.6 (28.0-62.0) fl RDW Coeff of Zachariah 14 (11.0-15.0) % Plt Count 246 (150-400) K/uL MPV 8.10 (7.40-12.00) fL Neut % (Auto) 57.3 (48.0-80.0) % Lymph % (Auto) 36.1 (16.0-40.0) % Harrison % (Auto) 4.7 (0.0-15.0) % Eos % (Auto) 1.7 (0.0-7.0) % Baso % (Auto) 0.2 (0.0-1.5) % Neut # (Auto) 5.8 H (1.4-5.7) K/uL Lymph # (Auto) 3.7 H (0.6-2.4) K/uL Harrison # (Auto) 0.5 (0.0-0.8) K/uL Eos # (Auto) 0.2 (0.0-0.7) K/uL Baso # (Auto) 0.0 (0.0-0.1) K/uL Nucleated RBC % 0.0 /100WBC Nucleated RBCs # 0 K/uL Lactate (0.20-2.00) mmol/L Sodium 139 (136-145) mmol/L Potassium 3.7 (3.5-5.1) mmol/L Chloride 108 H (98-107) mmol/L Carbon Dioxide 22.6 (21.0-32.0) mmol/L BUN 8 (7.0-18.0) mg/dL Creatinine 0.7 (0.6-1.0) mg/dL Est Cr Clr Drug Dosing 82.11 mL/min Estimated GFR (MDRD) > 60.0 ml/min Glucose 88 (74-106) mg/dL Calcium 7.8 L (8.5-10.1) mg/dL Total Bilirubin 0.3 (0.2-1.0) mg/dL AST 13 L (15-37) IU/L ALT 15 (14-63) IU/L Alkaline Phosphatase 45 L (46-116) U/L Troponin I (0.000-0.056) ng/mL Total Protein 5.5 L (6.4-8.2) g/dL Albumin 2.8 L (3.4-5.0) g/dL Globulin 2.7 (2.6-4.0) g/dL Albumin/Globulin Ratio 1.0 (0.9-1.6) Urine Color DARK YELLOW Urine Appearance CLOUDY Urine pH 8.0 (5.0-8.0) Ur Specific [place] 1.025 (1.001-1.035) Urine Protein 30 H (NEGATIVE) mg/dL Urine Glucose (UA) NEGATIVE (NEGATIVE) mg/dL Urine Ketones 15 H (NEGATIVE) mg/dL Urine Occult Blood LARGE H (NEGATIVE) Urine Nitrite NEGATIVE (NEGATIVE) Urine Bilirubin NEGATIVE (NEGATIVE) Urine Urobilinogen 0.2 (<2.0) EU/dL Ur Leukocyte Esterase MODERATE H (NEGATIVE) Urine RBC 50-60 (0-2/HPF) Urine WBC 40-50 (0-5/HPF) Ur Squamous Epith Cells MANY Urine Bacteria 2+ H (NEGATIVE) Blood Type Antibody Screen Crossmatch 07/22/19 07/22/19 07/22/19 Range/Units 18:30 18:30 19:25 WBC (4.0-11.0) K/uL RBC (4.30-5.90) M/uL Hgb (12.0-16.0) g/dL Hct (36.0-46.0) % MCV (80.0-98.0) fL MCH (27.0-32.0) pg MCHC (31.0-37.0) g/dL RDW Std Deviation (28.0-62.0) fl RDW Coeff of Zachariah (11.0-15.0) % Plt Count (150-400) K/uL MPV (7.40-12.00) fL Neut % (Auto) (48.0-80.0) % Lymph % (Auto) (16.0-40.0) % Harrison % (Auto) (0.0-15.0) % Eos % (Auto) (0.0-7.0) % Baso % (Auto) (0.0-1.5) % Neut # (Auto) (1.4-5.7) K/uL Lymph # (Auto) (0.6-2.4) K/uL Harrison # (Auto) (0.0-0.8) K/uL Eos # (Auto) (0.0-0.7) K/uL Baso # (Auto) (0.0-0.1) K/uL Nucleated RBC % /100WBC Nucleated RBCs # K/uL Lactate 1.1 (0.20-2.00) mmol/L Sodium (136-145) mmol/L Potassium (3.5-5.1) mmol/L Chloride (98-107) mmol/L Carbon Dioxide (21.0-32.0) mmol/L BUN (7.0-18.0) mg/dL Creatinine (0.6-1.0) mg/dL Est Cr Clr Drug Dosing mL/min Estimated GFR (MDRD) ml/min Glucose (74-106) mg/dL Calcium (8.5-10.1) mg/dL Total Bilirubin (0.2-1.0) mg/dL AST (15-37) IU/L ALT (14-63) IU/L Alkaline Phosphatase (46-116) U/L Troponin I 0.059 H* (0.000-0.056) ng/mL Total Protein (6.4-8.2) g/dL Albumin (3.4-5.0) g/dL Globulin (2.6-4.0) g/dL Albumin/Globulin Ratio (0.9-1.6) Urine Color Urine Appearance Urine pH (5.0-8.0) Ur Specific [place] (1.001-1.035) Urine Protein (NEGATIVE) mg/dL Urine Glucose (UA) (NEGATIVE) mg/dL Urine Ketones (NEGATIVE) mg/dL Urine Occult Blood (NEGATIVE) Urine Nitrite (NEGATIVE) Urine Bilirubin (NEGATIVE) Urine Urobilinogen (<2.0) EU/dL Ur Leukocyte Esterase (NEGATIVE) Urine RBC (0-2/HPF) Urine WBC (0-5/HPF) Ur Squamous Epith Cells Urine Bacteria (NEGATIVE) Blood Type O POSITIVE Antibody Screen NEGATIVE Crossmatch See Detail Meds: Medications Generic Name Dose Route Start Last Admin Trade Name Freq PRN Reason Stop Dose Admin Sodium Chloride 1,000 mls @ 999 mls/hr 07/22/19 19:03 07/22/19 19:58 Normal Saline IV 07/22/19 20:03 999 mls/hr STAT ONE Administration Discontinued Medications Generic Name Dose Route Start Last Admin Trade Name Freq PRN Reason Stop Dose Admin Sodium Chloride 1,000 mls @ 999 mls/hr 07/22/19 18:08 07/22/19 18:37 Normal Saline IV 07/22/19 19:08 999 mls/hr BOLUS ONE Administration Ceftriaxone Sodium/Dextrose 1 50 mls @ 100 mls/hr 07/22/19 19:08 07/22/19 19: 58 gm/ Premix IV 07/22/19 19:37 100 mls/hr ONETIME ONE Administration Ondansetron HCl 4 mg 07/22/19 18:16 07/22/19 18:37 Zofran IVPUSH 07/22/19 18:17 4 mg ONETIME ONE Administration Departure - Departure Time of Disposition: 19:21 Disposition: Admitted As Inpatient 66 Condition: Good Clinical Impression: Incomplete , Urinary tract infection, Severe anemia - Discharge Information Sepsis Event Note - Focused Exam Vital Signs: Vital Signs Temp Pulse Resp BP Pulse Ox 07/22/19 17:37 99.0 F 101 H 20 119/50 L 99 Date Exam was Performed: 07/22/19 Time Exam was Performed: 19:19 - My Orders Last 24 Hours: My Active Orders 07/22/19 18:15 Isolation [COMM] Routine 07/22/19 18:16 Transvaginal Non OB [US] Stat Blood Culture x2 Reflex Set [OM.PC] Stat 07/22/19 18:17 EKG Documentation Completion [RC] STAT Orthostatic Vital Signs [RC] ASDIRECTED 07/22/19 18:28 CULTURE BLOOD [BC] Stat 07/22/19 18:30 CULTURE BLOOD [BC] Stat CULTURE URINE [RM] Stat 07/22/19 18:48 Verify Patient Consent Obtain [RC] ASDIRECTED Transfuse Red Blood Cells [COMM] Stat 07/22/19 19:03 Sodium Chloride 0.9% [Normal Saline] 1,000 ml IV STAT 07/22/19 19:07 CORONAVIRUS (COVID-19) PCR [MREF] Stat 07/22/19 19:25 RED BLOOD CELLS LP [BBK] Stat TYPE AND SCREEN [BBK] Stat - Assessment/Plan Last 24 Hours: My Active Orders 07/22/19 18:15 Isolation [COMM] Routine 07/22/19 18:16 Transvaginal Non OB [US] Stat Blood Culture x2 Reflex Set [OM.PC] Stat 07/22/19 18:17 EKG Documentation Completion [RC] STAT Orthostatic Vital Signs [RC] ASDIRECTED 07/22/19 18:28 CULTURE BLOOD [BC] Stat 07/22/19 18:30 CULTURE BLOOD [BC] Stat CULTURE URINE [RM] Stat 07/22/19 18:48 Verify Patient Consent Obtain [RC] ASDIRECTED Transfuse Red Blood Cells [COMM] Stat 07/22/19 19:03 Sodium Chloride 0.9% [Normal Saline] 1,000 ml IV STAT 07/22/19 19:07 CORONAVIRUS (COVID-19) PCR [MREF] Stat 07/22/19 19:25 RED BLOOD CELLS LP [BBK] Stat TYPE AND SCREEN [BBK] Stat <Aylin Rodriguez - Last Filed: 07/22/19 20:02> ED HPI GENERAL MEDICAL PROBLEM - General Source of Information: Reports: Patient History Limitations: Reports: No Limitations - History of Present Illness INITIAL COMMENTS - FREE TEXT/NARRATIVE: HISTORY AND PHYSICAL: History of present illness: Patient is a 33-year-old female who presents to the ED today with concern of fever after recent miscarriage. Patient states that she had a miscarriage 2 weeks ago but was hoping to pass a on her own but this did not happen. Patient states she was given Cytotec by Dr. Sotomayor on and took it night and started bleeding Tuesday. Patient states Tuesday she had lower abdominal cramping and felt nauseous with a decrease in appetite. Patient states she took an additional dose of Cytotec on Tuesday afternoon and continues to have vaginal bleeding. Patient states she is vaginally bleeding today. Patient states on Tuesday she had 1 episode syncope and 2 episodes of near syncope in which she was in the shower and felt like she was going to pass out. Patient states her did catch her and helped her get to the floor. Patient states since then she has felt tired and rundown and has not tried to eat or drink much. Patient states that she started feeling warm today, body aches, short of breath, headache, and like she had chills so she checked a temperature at home orally which was 102. Patient states she took a few ibuprofen and Tylenol pills approximately an hour before coming to the ED. Patient states after she had her fever she called the [facility] on-call number and was instructed to come to the ED because of the fever. Patient denies any lower abdominal pain, neck stiffness, or cramping but states she still has bleeding when she goes to the bathroom or stands up. Patient denies chest pain, or cough. Denies neck stiff ness, change in vision. Denies vomiting, abdominal pain, diarrhea, constipation, or dysuria. Has not noted any blood in urine or stool. Review of systems: As per history of present illness and below otherwise all systems reviewed and negative. Past medical history: As per history of present illness and as reviewed below otherwise noncontributory. Surgical history: As per history of present illness and as reviewed below otherwise noncontributory. Social history: See social history for further information Family history: As per history of present illness and as reviewed below otherwise noncontributory. Physical exam: General: Patient is alert, oriented, and in no acute distress. Patient laying comfortably on exam table and tired appearing. HEENT: Atraumatic, normocephalic, pupils equal and reactive bilaterally, negative for conjunctival pallor or scleral icterus, mucous membranes moist, TMs normal bilaterally, throat clear, neck supple, nontender, trachea midline. No drooling or trismus noted. No meningeal signs. No hot potato voice noted. Lungs: Clear to auscultation, breath sounds equal bilaterally, chest nontender. Heart: S1S2, regular rate and rhythm without overt murmur Abdomen: Soft, nondistended, nontender. Negative for masses or hepatosplenomegaly. Negative for costovertebral tenderness. Pelvis: Stable nontender. Genitourinary: Deferred. Rectal: Deferred. Skin: Intact, warm, dry. No lesions or rashes noted. Extremities: Atraumatic, negative for cords or calf pain. Neurovascular unremarkable. Neuro: Awake, alert, oriented. Cranial nerves II through XII unremarkable. Cerebellum unremarkable. Motor and sensory unremarkable throughout. Exam nonfocal. Notes: Dr. Smith has assumed care of patient and will follow remaining diagnostics and disposition. Diagnostics: EKG, orthostatic vitals, CBC, CMP, UA, chest x-ray, troponin, transvaginal ultrasound, lactate, blood cultures x2, COV-ID 19 Therapeutics: NS x 2, Rocephin, RBC to be transfused Impression: Symptomatic anemia Urinary Tract Infection Plan: Definitive disposition and diagnosis as appropriate pending reevaluation and review of above. 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: Reports: - Infectious Disease History Infectious Disease History: Reports: Chicken Pox Social & Family History - Family History Cardiac: Reports: High Cholesterol, Hypertension Respiratory: Reports: Asthma GI: Reports: None : Reports: None OBGYN: Reports: None Endocrine/Metabolic: Reports: Diabetes, type II Hematologic: Reports: None Immunologic: Reports: None Oncologic: Reports: None - Tobacco Use Smoking Status *Q: Never Smoker - Caffeine Use Caffeine Use: Reports: Coffee - Recreational Drug Use Recreational Drug Use: No ED ROS GENERAL - Review of Systems Review Of Systems: Comprehensive ROS is negative, except as noted in HPI. ED EXAM, GENERAL - Physical Exam Exam: See Below (see dictation) Course - Orders/Labs/Meds Labs: Laboratory Tests 07/22/19 07/22/19 07/22/19 Range/Units 18:30 18:30 18:30 WBC 10.18 (4.0-11.0) K/uL RBC 2.05 L (4.30-5.90) M/uL Hgb 6.2 L (12.0-16.0) g/dL Hct 18.0 L (36.0-46.0) % MCV 87.8 (80.0-98.0) fL MCH 30.2 (27.0-32.0) pg MCHC 34.4 (31.0-37.0) g/dL RDW Std Deviation 44.6 (28.0-62.0) fl RDW Coeff of Zachariah 14 (11.0-15.0) % Plt Count 246 (150-400) K/uL MPV 8.10 (7.40-12.00) fL Neut % (Auto) 57.3 (48.0-80.0) % Lymph % (Auto) 36.1 (16.0-40.0) % Harrison % (Auto) 4.7 (0.0-15.0) % Eos % (Auto) 1.7 (0.0-7.0) % Baso % (Auto) 0.2 (0.0-1.5) % Neut # (Auto) 5.8 H (1.4-5.7) K/uL Lymph # (Auto) 3.7 H (0.6-2.4) K/uL Harrison # (Auto) 0.5 (0.0-0.8) K/uL Eos # (Auto) 0.2 (0.0-0.7) K/uL Baso # (Auto) 0.0 (0.0-0.1) K/uL Nucleated RBC % 0.0 /100WBC Nucleated RBCs # 0 K/uL Lactate (0.20-2.00) mmol/L Sodium 139 (136-145) mmol/L Potassium 3.7 (3.5-5.1) mmol/L Chloride 108 H (98-107) mmol/L Carbon Dioxide 22.6 (21.0-32.0) mmol/L BUN 8 (7.0-18.0) mg/dL Creatinine 0.7 (0.6-1.0) mg/dL Est Cr Clr Drug Dosing 82.11 mL/min Estimated GFR (MDRD) > 60.0 ml/min Glucose 88 (74-106) mg/dL Calcium 7.8 L (8.5-10.1) mg/dL Total Bilirubin 0.3 (0.2-1.0) mg/dL AST 13 L (15-37) IU/L ALT 15 (14-63) IU/L Alkaline Phosphatase 45 L (46-116) U/L Troponin I (0.000-0.056) ng/mL Total Protein 5.5 L (6.4-8.2) g/dL Albumin 2.8 L (3.4-5.0) g/dL Globulin 2.7 (2.6-4.0) g/dL Albumin/Globulin Ratio 1.0 (0.9-1.6) Urine Color DARK YELLOW Urine Appearance CLOUDY Urine pH 8.0 (5.0-8.0) Ur Specific [place] 1.025 (1.001-1.035) Urine Protein 30 H (NEGATIVE) mg/dL Urine Glucose (UA) NEGATIVE (NEGATIVE) mg/dL Urine Ketones 15 H (NEGATIVE) mg/dL Urine Occult Blood LARGE H (NEGATIVE) Urine Nitrite NEGATIVE (NEGATIVE) Urine Bilirubin NEGATIVE (NEGATIVE) Urine Urobilinogen 0.2 (<2.0) EU/dL Ur Leukocyte Esterase MODERATE H (NEGATIVE) Urine RBC 50-60 (0-2/HPF) Urine WBC 40-50 (0-5/HPF) Ur Squamous Epith Cells MANY Urine Bacteria 2+ H (NEGATIVE) Blood Type Antibody Screen Crossmatch 03/22/20 03/22/20 03/22/20 Range/Units 18:30 18:30 19:25 WBC (4.0-11.0) K/uL RBC (4.30-5.90) M/uL Hgb (12.0-16.0) g/dL Hct (36.0-46.0) % MCV (80.0-98.0) fL MCH (27.0-32.0) pg MCHC (31.0-37.0) g/dL RDW Std Deviation (28.0-62.0) fl RDW Coeff of Zachariah (11.0-15.0) % Plt Count (150-400) K/uL MPV (7.40-12.00) fL Neut % (Auto) (48.0-80.0) % Lymph % (Auto) (16.0-40.0) % Harrison % (Auto) (0.0-15.0) % Eos % (Auto) (0.0-7.0) % Baso % (Auto) (0.0-1.5) % Neut # (Auto) (1.4-5.7) K/uL Lymph # (Auto) (0.6-2.4) K/uL Harrison # (Auto) (0.0-0.8) K/uL Eos # (Auto) (0.0-0.7) K/uL Baso # (Auto) (0.0-0.1) K/uL Nucleated RBC % /100WBC Nucleated RBCs # K/uL Lactate 1.1 (0.20-2.00) mmol/L Sodium (136-145) mmol/L Potassium (3.5-5.1) mmol/L Chloride (98-107) mmol/L Carbon Dioxide (21.0-32.0) mmol/L BUN (7.0-18.0) mg/dL Creatinine (0.6-1.0) mg/dL Est Cr Clr Drug Dosing mL/min Estimated GFR (MDRD) ml/min Glucose (74-106) mg/dL Calcium (8.5-10.1) mg/dL Total Bilirubin (0.2-1.0) mg/dL AST (15-37) IU/L ALT (14-63) IU/L Alkaline Phosphatase (46-116) U/L Troponin I 0.059 H* (0.000-0.056) ng/mL Total Protein (6.4-8.2) g/dL Albumin (3.4-5.0) g/dL Globulin (2.6-4.0) g/dL Albumin/Globulin Ratio (0.9-1.6) Urine Color Urine Appearance Urine pH (5.0-8.0) Ur Specific [place] (1.001-1.035) Urine Protein (NEGATIVE) mg/dL Urine Glucose (UA) (NEGATIVE) mg/dL Urine Ketones (NEGATIVE) mg/dL Urine Occult Blood (NEGATIVE) Urine Nitrite (NEGATIVE) Urine Bilirubin (NEGATIVE) Urine Urobilinogen (<2.0) EU/dL Ur Leukocyte Esterase (NEGATIVE) Urine RBC (0-2/HPF) Urine WBC (0-5/HPF) Ur Squamous Epith Cells Urine Bacteria (NEGATIVE) Blood Type O POSITIVE Antibody Screen NEGATIVE Crossmatch See Detail Sepsis Event Note - Evaluation Sepsis Screening Result: No Definite Risk - Focused Exam Date Exam was Performed: 07/22/19 Time Exam was Performed: 20:02
[2019-07-22 18:57] LABS: BLOOD UREA NITROGEN,BUN 8 mg/dL (7.0-18.0); CARBON DIOXIDE,CO2 22.6 mmol/L (21.0-32.0); CHLORIDE,CL 108 mmol/L (98-107); GLUCOSE RANDOM 88 mg/dL (74-106); POTASSIUM,K 3.7 mmol/L (3.5-5.1); SODIUM,NA 139 mmol/L (136-145)
--- NOTE | 2019-07-22 19:01 | CR ---
INDICATION: Miscarriage . Comparison: None. TECHNIQUE: Portable AP chest. FINDINGS: Normal size cardiac silhouette. Clear lung martinez with no evidence of acute pneumonic infiltrates or CHF. No pneumothorax or pleural effusion. IMPRESSION: Negative portable AP chest. Dictated by Valeriano Rangel MD @ Jul 22 2019 6:59PM Signed by Dr. Valeriano Rangel @ Jul 22 2019 7:00PM
[2019-07-22] MEDS ORDERED: cefTRIAXone 1 GM in Premix Bag 1 BAG IV ONE (19:08)
--- NOTE | 2019-07-22 21:39 | US ---
INDICATION: Fever. Status post spontaneous . COMPARISON: None available. FINDINGS: Transvaginal ultrasound examination of the female pelvis was performed. The uterus is anteverted with no evidence of mass. It is mildly enlarged, consistent with recent and measures 9.8 x 7.6 x 5.8 cm. There is heterogeneous material in the mildly distended uterine cavity measuring up to 28 millimeters in diameter. There is increased color Doppler flow throughout this material, worrisome for retained products of conception. There is a simple cyst in the left ovary measuring 2.8 x 3.2 x 1.9 centimeters. The ovaries are normal in size, the right measuring 3.1 x 1.9 x 3.3 cm and the left measuring 3.3 x 1.7 x 2.4 cm. There is normal color and pulse doppler flow in both ovaries. There is a small amount of free fluid in the cul-de-sac, probably physiologic. IMPRESSION: Heterogeneous, echogenic material in the uterine cavity with increased color Doppler flow, worrisome for retained products of conception. This material measures up to 28 millimeters in thickness. No sign of an intrauterine gestational sac. Simple cyst in the left ovary measuring up to 2.8 centimeters in diameter. Dictated by Theodore Waggoner MD @ Jul 22 2019 9:33PM Signed by Dr. Theodore Waggoner @ Jul 22 2019 9:37PM
--- NOTE | 2019-07-22 22:27 | PCM.HP.2 ---
H&P History of Present Illness - General Date of Service: 07/23/19 Admit Problem/Dx: Admission Diagnosis/Problem Admission Diagnosis/Problem Anemia complicating puerperium - History of Present Illness Initial Comments - Free Text/Narative: 33yo presenting with fever, chills and headaches. Patient was diagnosed with a missed , she had medical management with cytotec on 07/19/2019 and 07/20/2019. Reports had very heavy bleeding for 2 days, with clots and soaking 1-2pads an hour. Bleeding was improved yesterday. She noted bad headaches and was feeling very weak when she ambulated. This morning she had fever at home of 101.8 and chills. She denies dysuria, nausea, vomiting or diarrhea. Denies sick contacts. headache Pain Score (Numeric/FACES): 8 - Related Data Allergies/Adverse Reactions: Allergies Allergy/AdvReac Type Severity Reaction Status Date / Time seasonal Allergy Mild Wheezing Uncoded 07/22/19 21:50 Home Medications: Home Meds Acetaminophen [Tylenol] 2 tab PO Q4H PRN 01/17/18 [History] Albuterol Sulfate [Proair Respiclick] 2 puff INH QID PRN 01/17/18 [History] Calcium Carbonate/Vitamin D3 [Calcium 500 mg Chewable Tablet] 1 tab PO BID 01/17 [History] Fexofenadine [Natty] 1 tab PO DAILY 01/17/18 [History] Fish Oil/[place]-3 Fatty Acids [Fish Oil 1,000 MG] 1 cap PO BID 01/17/18 [History] Fluticasone Propionate [Flovent HFA 110 MCG] 2 puff INH BID PRN 01/17/18 [ History] Pnv No.95/Ferrous Fum/Folic AC [ Vitamin Tablet] 1 tab PO DAILY [History] Past Medical History Respiratory History: Reports: Asthma [employer] History: Reports: - Infectious Disease History Infectious Disease History: Reports: Chicken Pox Social & Family History - Family History Cardiac: Reports: High Cholesterol, Hypertension Respiratory: Reports: Asthma GI: Reports: None : Reports: None OBGYN: Reports: None Endocrine/Metabolic: Reports: Diabetes, type II Hematologic: Reports: None Immunologic: Reports: None Oncologic: Reports: None - Tobacco Use Smoking Status *Q: Never Smoker - Caffeine Use Caffeine Use: Reports: Coffee - Recreational Drug Use Recreational Drug Use: No H&P Review of Systems - Review of Systems: Review Of Systems: See Below General: Reports: Chills, Weakness, Fatigue HEENT: Reports: Headaches Pulmonary: Reports: No Symptoms Cardiovascular: Reports: Lightheadedness Gastrointestinal: Reports: No Symptoms Genitourinary: Reports: No Symptoms Musculoskeletal: Reports: No Symptoms Skin: Reports: No Symptoms Psychiatric: Reports: No Symptoms Neurological: Reports: No Symptoms Hematologic/Lymphatic: Reports: No Symptoms Immunologic: Reports: No Symptoms Exam - Exam Exam: See Below - Vital Signs Vital Signs: Last Vital Signs Temp 36.9 C 07/22/19 21: Pulse 92 07/22/19 21:25 Resp 18 07/22/19 21:25 BP 103/55 L 07/22/19 21: Pulse Ox 100 07/22/19 21:25 Orthostatic Blood Pressure [ 94/62 Standing] Orthostatic Blood Pressure [ 102/56 Sitting] Orthostatic Blood Pressure [ 118/63 Supine] Weight: 214 lb - Exam General: Alert, Oriented, Cooperative, Mild Distress Neck: Supple, Trachea Midline Lungs: Normal Respiratory Effort GI/Abdominal Exam: Soft, Non-Tender, No Organomegaly, No Distention (Female) Exam: Vaginal Bleeding (Small amount) Back Exam: Normal Inspection, Full Range of Motion Extremities: Normal Inspection, Normal Range of Motion, Non-Tender, No Pedal Edema Skin: Warm, Dry, Intact Neurological: Cranial Nerves Intact Psychiatric: Alert, Normal Affect, Normal Mood - Patient Data Lab Results Last 24 hrs: Laboratory Results - last 24 hr 07/22/19 07/22/19 07/22/19 Range/Units 18:30 18:30 18:30 WBC 10.18 (4.0-11.0) K/uL RBC 2.05 L (4.30-5.90) M/uL Hgb 6.2 L (12.0-16.0) g/dL Hct 18.0 L (36.0-46.0) % MCV 87.8 (80.0-98.0) fL MCH 30.2 (27.0-32.0) pg MCHC 34.4 (31.0-37.0) g/dL RDW Std Deviation 44.6 (28.0-62.0) fl RDW Coeff of Zachariah 14 (11.0-15.0) % Plt Count 246 (150-400) K/uL MPV 8.10 (7.40-12.00) fL Neut % (Auto) 57.3 (48.0-80.0) % Lymph % (Auto) 36.1 (16.0-40.0) % [facility] % (Auto) 4.7 (0.0-15.0) % Eos % (Auto) 1.7 (0.0-7.0) % Baso % (Auto) 0.2 (0.0-1.5) % Neut # (Auto) 5.8 H (1.4-5.7) K/uL Lymph # (Auto) 3.7 H (0.6-2.4) K/uL [facility] # (Auto) 0.5 (0.0-0.8) K/uL Eos # (Auto) 0.2 (0.0-0.7) K/uL Baso # (Auto) 0.0 (0.0-0.1) K/uL Nucleated RBC % 0.0 /100WBC Nucleated RBCs # 0 K/uL Lactate (0.20-2.00) mmol/L Sodium 139 (136-145) mmol/L Potassium 3.7 (3.5-5.1) mmol/L Chloride 108 H (98-107) mmol/L Carbon Dioxide 22.6 (21.0-32.0) mmol/L BUN 8 (7.0-18.0) mg/dL Creatinine 0.7 (0.6-1.0) mg/dL Est Cr Clr Drug Dosing 82.11 mL/min Estimated GFR (MDRD) > 60.0 ml/min Glucose 88 (74-106) mg/dL Calcium 7.8 L (8.5-10.1) mg/dL Total Bilirubin 0.3 (0.2-1.0) mg/dL AST 13 L (15-37) IU/L ALT 15 (14-63) IU/L Alkaline Phosphatase 45 L (46-116) U/L Troponin I (0.000-0.056) ng/mL Total Protein 5.5 L (6.4-8.2) g/dL Albumin 2.8 L (3.4-5.0) g/dL Globulin 2.7 (2.6-4.0) g/dL Albumin/Globulin Ratio 1.0 (0.9-1.6) Urine Color DARK YELLOW Urine Appearance CLOUDY Urine pH 8.0 (5.0-8.0) Ur Specific [place] 1.025 (1.001-1.035) Urine Protein 30 H (NEGATIVE) mg/dL Urine Glucose (UA) NEGATIVE (NEGATIVE) mg/dL Urine Ketones 15 H (NEGATIVE) mg/dL Urine Occult Blood LARGE H (NEGATIVE) Urine Nitrite NEGATIVE (NEGATIVE) Urine Bilirubin NEGATIVE (NEGATIVE) Urine Urobilinogen 0.2 (<2.0) EU/dL Ur Leukocyte Esterase MODERATE H (NEGATIVE) Urine RBC 50-60 (0-2/HPF) Urine WBC 40-50 (0-5/HPF) Ur Squamous Epith Cells MANY Urine Bacteria 2+ H (NEGATIVE) Blood Type Antibody Screen Crossmatch 07/22/19 07/22/19 07/22/19 Range/Units 18:30 18:30 19:25 WBC (4.0-11.0) K/uL RBC (4.30-5.90) M/uL Hgb (12.0-16.0) g/dL Hct (36.0-46.0) % MCV (80.0-98.0) fL MCH (27.0-32.0) pg MCHC (31.0-37.0) g/dL RDW Std Deviation (28.0-62.0) fl RDW Coeff of Zachariah (11.0-15.0) % Plt Count (150-400) K/uL MPV (7.40-12.00) fL Neut % (Auto) (48.0-80.0) % Lymph % (Auto) (16.0-40.0) % [facility] % (Auto) (0.0-15.0) % Eos % (Auto) (0.0-7.0) % Baso % (Auto) (0.0-1.5) % Neut # (Auto) (1.4-5.7) K/uL Lymph # (Auto) (0.6-2.4) K/uL [facility] # (Auto) (0.0-0.8) K/uL Eos # (Auto) (0.0-0.7) K/uL Baso # (Auto) (0.0-0.1) K/uL Nucleated RBC % /100WBC Nucleated RBCs # K/uL Lactate 1.1 (0.20-2.00) mmol/L Sodium (136-145) mmol/L Potassium (3.5-5.1) mmol/L Chloride (98-107) mmol/L Carbon Dioxide (21.0-32.0) mmol/L BUN (7.0-18.0) mg/dL Creatinine (0.6-1.0) mg/dL Est Cr Clr Drug Dosing mL/min Estimated GFR (MDRD) ml/min Glucose (74-106) mg/dL Calcium (8.5-10.1) mg/dL Total Bilirubin (0.2-1.0) mg/dL AST (15-37) IU/L ALT (14-63) IU/L Alkaline Phosphatase (46-116) U/L Troponin I 0.059 H* (0.000-0.056) ng/mL Total Protein (6.4-8.2) g/dL Albumin (3.4-5.0) g/dL Globulin (2.6-4.0) g/dL Albumin/Globulin Ratio (0.9-1.6) Urine Color Urine Appearance Urine pH (5.0-8.0) Ur Specific [place] (1.001-1.035) Urine Protein (NEGATIVE) mg/dL Urine Glucose (UA) (NEGATIVE) mg/dL Urine Ketones (NEGATIVE) mg/dL Urine Occult Blood (NEGATIVE) Urine Nitrite (NEGATIVE) Urine Bilirubin (NEGATIVE) Urine Urobilinogen (<2.0) EU/dL Ur Leukocyte Esterase (NEGATIVE) Urine RBC (0-2/HPF) Urine WBC (0-5/HPF) Ur Squamous Epith Cells Urine Bacteria (NEGATIVE) Blood Type O POSITIVE Antibody Screen NEGATIVE Crossmatch See Detail Result Diagrams: 07/23/19 06:25 07/22/19 18:30 Johnie Results Last 24 hrs: Microbiology 07/22/19 18:30 Influenza Type A Antigen Screen - Final Nasopharyngeal Swab NEGATIVE INFLUENZA A VIRUS AG REFERENCE RANGE: NEGATIVE Influenza Type B Antigen Screen - Final NEGATIVE INFLUENZA B VIRUS AG REFERENCE RANGE: NEGATIVE Sepsis Event Note - Evaluation Sepsis Screening Result: No Definite Risk - Focused Exam Vital Signs: Vital Signs Temp Temp Pulse Resp BP Pulse Ox 03/22/20 21:25 36.9 C 92 18 103/55 L 100 07/22/19 21:08 99 07/22/19 21:06 37.0 C 18 104/63 99 07/22/19 20:08 36.9 C 96 18 112/60 100 07/22/19 17:37 37.2 C 101 H 20 119/50 L 99 Date Exam was Performed: 07/23/19 Time Exam was Performed: 08:40 Problem List Initiated/Reviewed/Updated: Yes Orders Last 24hrs: Active Orders 24 hr Category Date Time Status Patient Status [ADT] Routine ADT 07/22/19 22:12 Ordered Ambulate [RC] ASDIRECTED Care 07/22/19 22:12 Ordered EKG Documentation Completion [RC] STAT Care 07/22/19 18:17 Active Orthostatic Vital Signs [RC] ASDIRECTED Care 07/22/19 18:17 Active Oxygen Therapy [RC] PRN Care 07/22/19 22:12 Ordered VTE/DVT Education [RC] PER UNIT ROUTINE Care 07/22/19 22:12 Ordered Verify Patient Consent Obtain [RC] ASDIRECTED Care 07/22/19 18:48 Active Vital Signs [RC] Q4H Care 07/22/19 22:12 Ordered Nothing per Oral Now Diet [DIET] Diet 07/22/19 Breakfast Ordered CORONAVIRUS (COVID-19) PCR [MREF] Stat Lab 07/22/19 18:30 Received CULTURE BLOOD [BC] Stat Lab 07/22/19 18:28 Received CULTURE BLOOD [BC] Stat Lab 07/22/19 18:30 Received CULTURE URINE [RM] Stat Lab 07/22/19 18:30 Received Acetaminophen [Tylenol] Med 07/22/19 22:12 Ordered 650 mg PO Q4H PRN Doxycycline [Vibramycin] 100 mg Med 07/22/19 22:30 Ordered Sodium Chloride 0.9% [Normal Saline] 100 ml IV Q12H Ibuprofen [Motrin] Med 07/22/19 22:12 Ordered 600 mg PO Q6H PRN cefTRIAXone [Rocephin in Dextrose,Iso-Osm 1 GM/50 ML] 1 Med 07/22/19 22:30 Stop Req gm Premix Bag 1 bag IV Q24H cefTRIAXone [Rocephin in Dextrose,Iso-Osm 1 GM/50 ML] 1 Med 07/23/19 19:00 Ordered gm Premix Bag 1 bag IV Q24H Blood Culture x2 Reflex Set [OM.PC] Stat Ot 07/22/19 18:16 Ordered Isolation [COMM] Routine Oth 07/22/19 18:15 Active Transfuse Red Blood Cells [COMM] Stat Ot 07/22/19 18:48 Ordered Resuscitation Status Routine Resus Stat 07/22/19 22:12 Ordered Medication Orders Acetaminophen (Tylenol) 650 mg PO Q4H PRN PRN Reason: Pain (Mild 1-3)/fever Doxycycline Hyclate 100 mg/ (Sodium Chloride) 100 mls @ 100 mls/hr IV Q12H SUNITHA Ceftriaxone Sodium/Dextrose 1 (gm/ Premix) 50 mls @ 100 mls/hr IV Q24H SUNITHA Ibuprofen (Motrin) 600 mg PO Q6H PRN PRN Reason: Pain (mild 1-3) Assessment/Plan Comment:: 33yo s/p medical management of missed presenting with symptomatic anemia and retained products of conception, with signs of infection UTI vs. endometritis. - afebrile after admission, WBC of 10.2 - Hgb 6.2, received 2u of pRBC in ED, ordered 1u additional. Bleeding light currently. Repeat CBC in AM - UA with 3+ LE and many bacteria, given 1g of ceftriaxone for presumed UTI, will continue daily - Pelvic US with heterogeneous 2cm area with vascular flow consistent with retained POCs - will start doxycycline 100mg BID IV for possible endometritis - mildly elevated troponin of 0.059, will repeat in AM - Discussed options of management for retained POC including expectant, medical with cytotec or surgical with D&C, she desires to proceed with D&C. Reviewed procedure in detail, risks and possible complications, questions answered and consent signed. Had meal at 9:30pm, will do after NPO for 6-8hours per anesthesia.
[2019-07-22] MEDS ORDERED: cefTRIAXone 1 GM in Premix Bag 1 BAG IV SCH (22:30)
[2019-07-23] MEDS: Doxycycline 100 MG in Sodium Chloride 0.9% 100 ML IV SCH ×3 (00:58→12:12)
[2019-07-23] MEDS ORDERED: Midazolam 1 MG/ML 2 ML SDV ONE (06:35)
[2019-07-23] MEDS ORDERED: fentaNYL 100 MCG/2 ML SDV ONE (06:35)
[2019-07-23] MEDS ORDERED: Propofol 200 MG/20 ML SDV ONE (06:35)
[2019-07-23] MEDS ORDERED: Glycopyrrolate 0.2 MG/ML SDV ONE (06:37)
[2019-07-23] MEDS ORDERED: Ondansetron 4 MG/2 ML SDV ONE (06:37)
[2019-07-23] MEDS ORDERED: Ketorolac 30 MG/ML SDV ONE (06:37)
[2019-07-23] MEDS ORDERED: Lidocaine 2% 5 ML SDV ONE (06:37)
[2019-07-23] MEDS ORDERED: Acetaminophen 1,000 MG in Premix Bag 1 BAG IV PRN (06:48)
--- NOTE | 2019-07-23 06:48 | PCM.PREANE ---
Preanesthetic Assessment - Anesthesia/Transfusion/Family Hx Anesthesia History: No Prior Anesthesia Family History of Anesthesia Reaction: No Transfusion History: No Prior Transfusion(s) - Physical Assessment NPO Status Date: 07/22/19 NPO Status Time: 21:00 Vital Signs: Last Vital Signs Temp 36.4 C 07/23/19 06:18 Pulse 64 07/23/19 06:18 Resp 19 07/23/19 06:18 BP 99/63 07/23/19 06:18 Pulse Ox 98 07/23/19 06:18 Orthostatic Blood Pressure [ 94/62 Standing] Orthostatic Blood Pressure [ 102/56 Sitting] Orthostatic Blood Pressure [ 118/63 Supine] Height: 1.52 m Weight: 99 kg ASA Class: 2 - Lab Values: Laboratory Last Values WBC 8.44 K/uL (4.0-11.0) 07/23/19 06:25 RBC 2.37 M/uL (4.30-5.90) L 07/23/19 06:25 Hgb 7.1 g/dL (12.0-16.0) L 07/23/19 06:25 Hct 20.9 % (36.0-46.0) L 07/23/19 06:25 MCV 88.2 fL (80.0-98.0) 07/23/19 06:25 MCH 30.0 pg (27.0-32.0) 07/23/19 06:25 MCHC 34.0 g/dL (31.0-37.0) 07/23/19 06:25 RDW Std Deviation 45.0 fl (28.0-62.0) 07/23/19 06:25 RDW Coeff of Zachariah 14 % (11.0-15.0) 07/23/19 06:25 Plt Count 230 K/uL (150-400) 07/23/19 06:25 MPV 8.00 fL (7.40-12.00) 07/23/19 06:25 Neut % (Auto) 57.3 % (48.0-80.0) 07/22/19 18:30 Lymph % (Auto) 36.1 % (16.0-40.0) 07/22/19 18:30 [place] % (Auto) 4.7 % (0.0-15.0) 07/22/19 18:30 Eos % (Auto) 1.7 % (0.0-7.0) 07/22/19 18:30 Baso % (Auto) 0.2 % (0.0-1.5) 07/22/19 18:30 Neut # (Auto) 5.8 K/uL (1.4-5.7) H 07/22/19 18:30 Lymph # (Auto) 3.7 K/uL (0.6-2.4) H 07/22/19 18:30 [place] # (Auto) 0.5 K/uL (0.0-0.8) 07/22/19 18:30 Eos # (Auto) 0.2 K/uL (0.0-0.7) 07/22/19 18:30 Baso # (Auto) 0.0 K/uL (0.0-0.1) 07/22/19 18:30 Nucleated RBC % 0.0 /100WBC 07/23/19 06:25 Nucleated RBCs # 0 K/uL 07/23/19 06:25 Lactate 1.1 mmol/L (0.20-2.00) 07/22/19 18:30 Sodium 139 mmol/L (136-145) 07/22/19 18:30 Potassium 3.7 mmol/L (3.5-5.1) 07/22/19 18:30 Chloride 108 mmol/L (98-107) H 07/22/19 18:30 Carbon Dioxide 22.6 mmol/L (21.0-32.0) 07/22/19 18:30 BUN 8 mg/dL (7.0-18.0) 07/22/19 18:30 Creatinine 0.7 mg/dL (0.6-1.0) 07/22/19 18:30 Est Cr Clr Drug Dosing 82.11 mL/min 07/22/19 18:30 Estimated GFR (MDRD) > 60.0 ml/min 07/22/19 18:30 Glucose 88 mg/dL (74-106) 07/22/19 18:30 Calcium 7.8 mg/dL (8.5-10.1) L 07/22/19 18:30 Total Bilirubin 0.3 mg/dL (0.2-1.0) 07/22/19 18:30 AST 13 IU/L (15-37) L 07/22/19 18:30 ALT 15 IU/L (14-63) 07/22/19 18:30 Alkaline Phosphatase 45 U/L (46-116) L 07/22/19 18: Troponin I 0.059 ng/mL (0.000-0.056) H* 07/22/19 18:30 Total Protein 5.5 g/dL (6.4-8.2) L 07/22/19 18: Albumin 2.8 g/dL (3.4-5.0) L 07/22/19 18: Globulin 2.7 g/dL (2.6-4.0) 07/22/19 18: Albumin/Globulin Ratio 1.0 (0.9-1.6) 07/22/19 18: Urine Color DARK YELLOW 07/22/19 18: Urine Appearance CLOUDY 07/22/19 18: Urine pH 8.0 (5.0-8.0) 07/22/19 18: Ur Specific [place] 1.025 (1.001-1.035) 07/22/19 18: Urine Protein 30 mg/dL (NEGATIVE) H 07/22/19 18:30 Urine Glucose (UA) NEGATIVE mg/dL (NEGATIVE) 07/22/19 18: Urine Ketones 15 mg/dL (NEGATIVE) H 07/22/19 18:30 Urine Occult Blood LARGE (NEGATIVE) H 07/22/19 18:30 Urine Nitrite NEGATIVE (NEGATIVE) 07/22/19 18: Urine Bilirubin NEGATIVE (NEGATIVE) 07/22/19 18: Urine Urobilinogen 0.2 EU/dL (<2.0) 07/22/19 18:30 Ur Leukocyte Esterase MODERATE (NEGATIVE) H 07/22/19 18:30 Urine RBC 50-60 (0-2/HPF) 07/22/19 18:30 Urine WBC 40-50 (0-5/HPF) 07/22/19 18:30 Ur Squamous Epith Cells MANY 07/22/19 18:30 Urine Bacteria 2+ (NEGATIVE) H 07/22/19 18:30 Blood Type O POSITIVE 07/22/19 19:25 Antibody Screen NEGATIVE 07/22/19 19:25 Crossmatch See Detail 07/22/19 19:25 - Allergies Allergies/Adverse Reactions: Allergies Allergy/AdvReac Type Severity Reaction Status Date / Time seasonal Allergy Mild Wheezing Uncoded 07/22/19 21:50 - Acknowledgements Anesthesia Type Planned: General Anesthesia Pt an Appropriate Candidate for the Planned Anesthesia: Yes Alternatives and Risks of Anesthesia Discussed w Pt/Guardian: Yes Pt/Guardian Understands and Agrees with Anesthesia Plan: Yes PreAnesthesia Questionnaire Respiratory History: Reports: Asthma [employer] History: Reports: - Infectious Disease History Infectious Disease History: Reports: Chicken Pox - SUBSTANCE USE Smoking Status *Q: Never Smoker Recreational Drug Use History: No - HOME MEDS Home Medications: Home Meds Acetaminophen [Tylenol] 2 tab PO Q4H PRN 01/17/18 [History] Albuterol Sulfate [Proair Respiclick] 2 puff INH QID PRN 01/17/18 [History] Calcium Carbonate/Vitamin D3 [Calcium 500 mg Chewable Tablet] 1 tab PO BID 01/17 [History] Fexofenadine [Natty] 1 tab PO DAILY 01/17/18 [History] Fish Oil/[place]-3 Fatty Acids [Fish Oil 1,000 MG] 1 cap PO BID 01/17/18 [History] Fluticasone Propionate [Flovent HFA 110 MCG] 2 puff INH BID PRN 01/17/18 [ History] Pnv No.95/Ferrous Fum/Folic AC [ Vitamin Tablet] 1 tab PO DAILY [History] - CURRENT (IN HOUSE) MEDS Current Meds: Current Medications Acetaminophen (Tylenol) 650 mg PO Q4H PRN PRN Reason: Pain (Mild 1-3)/fever Doxycycline Hyclate 100 mg/ (Sodium Chloride) 100 mls @ 100 mls/hr IV Q12H [facility] Last Admin: 07/23/19 00:58 Dose: 100 mls/hr Ceftriaxone Sodium/Dextrose 1 (gm/ Premix) 50 mls @ 100 mls/hr IV Q24H SUNITHA Ibuprofen (Motrin) 600 mg PO Q6H PRN PRN Reason: Pain (mild 1-3) Last Admin: 07/23/19 00:00 Dose: 600 mg Discontinued Medications Fentanyl (Sublimaze) Confirm Administered Dose 100 mcg .ROUTE .STK-MED ONE Stop: 07/23/19 06:36 Glycopyrrolate (Robinul) Confirm Administered Dose 0.2 mg .ROUTE .STK-MED ONE Stop: 07/23/19 06:38 Sodium Chloride (Normal Saline) 1,000 mls @ 999 mls/hr IV BOLUS ONE Stop: 07/22/19 19:08 Last Admin: 07/22/19 18:37 Dose: 999 mls/hr Sodium Chloride (Normal Saline) 1,000 mls @ 999 mls/hr IV STAT ONE Stop: 07/22/19 20:03 Last Admin: 07/22/19 19:58 Dose: 999 mls/hr Ceftriaxone Sodium/Dextrose 1 (gm/ Premix) 50 mls @ 100 mls/hr IV ONETIME ONE Stop: 07/22/19 19:37 Last Admin: 07/22/19 19:58 Dose: 100 mls/hr Ceftriaxone Sodium/Dextrose 1 (gm/ Premix) 50 mls @ 100 mls/hr IV Q24H SUNITHA Ketorolac Tromethamine (Toradol) Confirm Administered Dose 30 mg .ROUTE .STK- MED ONE Stop: 07/23/19 06:38 Lidocaine (Xylocaine-Mpf 2%) Confirm Administered Dose 5 ml .ROUTE .STK-MED ONE Stop: 07/23/19 06:38 Midazolam HCl (Versed 1 Mg/Ml) Confirm Administered Dose 2 mg .ROUTE .STK-MED ONE Stop: 07/23/19 06:36 Ondansetron HCl (Zofran) 4 mg IVPUSH ONETIME ONE Stop: 07/22/19 18:17 Last Admin: 07/22/19 18:37 Dose: 4 mg Ondansetron HCl (Zofran) Confirm Administered Dose 4 mg .ROUTE .STK-MED ONE Stop: 07/23/19 06:38 Propofol (Diprivan 20 Ml) Confirm Administered Dose 200 mg .ROUTE .STK-MED ONE Stop: 07/23/19 06:36
[2019-07-23] MEDS ORDERED: fentaNYL 100 MCG/2 ML SDV IVPUSH PRN (06:49)
[2019-07-23] MEDS ORDERED: Sodium Chloride 0.9% 20 ML ONE (07:05)
[2019-07-23] MEDS ORDERED: ceFAZolin 1 GM Vial ONE (07:05)
[2019-07-23] MEDS ORDERED: Methylergonovine 0.2 MG/1 ML Amp ONE (07:32)
[2019-07-23] MEDS ORDERED: Methylergonovine 0.2 MG Tab PO PRN (08:19)
--- NOTE | 2019-07-23 08:39 | PCM.PN ---
- General Info Date of Service: 07/23/19 Subjective Update: Patient feeling tired this morning. Having moderate bleeding when she get up to use the bathroom. Feels weak when she ambulates. No fevers since admission. - Review of Systems General: Reports: Weakness, Fatigue Pulmonary: Reports: No Symptoms Cardiovascular: Reports: No Symptoms Gastrointestinal: Reports: No Symptoms Genitourinary: Reports: No Symptoms Musculoskeletal: Reports: No Symptoms Skin: Reports: No Symptoms Neurological: Reports: No Symptoms Psychiatric: Reports: No Symptoms - Patient Data Vitals - Most Recent: Last Vital Signs Temp 36.6 C 07/23/19 07:48 Pulse 109 H 07/23/19 08:27 Resp 19 07/23/19 08:27 BP 101/59 L 07/23/19 08:27 Pulse Ox 99 07/23/19 08:27 Orthostatic Blood Pressure [ 94/62 Standing] Orthostatic Blood Pressure [ 102/56 Sitting] Orthostatic Blood Pressure [ 118/63 Supine] Weight - Most Recent: 218 lb 4.122 oz I&O - Last 24 Hours: Intake & Output 07/22/19 07/23/19 07/23/19 22:59 06:59 14:59 Intake Total 19 451 Output Total 350 Balance 19 101 Lab Results Last 24 Hours: Laboratory Results - last 24 hr 07/22/19 07/22/19 07/22/19 Range/Units 18:30 18:30 18:30 WBC 10.18 (4.0-11.0) K/uL RBC 2.05 L (4.30-5.90) M/uL Hgb 6.2 L (12.0-16.0) g/dL Hct 18.0 L (36.0-46.0) % MCV 87.8 (80.0-98.0) fL MCH 30.2 (27.0-32.0) pg MCHC 34.4 (31.0-37.0) g/dL RDW Std Deviation 44.6 (28.0-62.0) fl RDW Coeff of Zachariah 14 (11.0-15.0) % Plt Count 246 (150-400) K/uL MPV 8.10 (7.40-12.00) fL Neut % (Auto) 57.3 (48.0-80.0) % Lymph % (Auto) 36.1 (16.0-40.0) % Morton % (Auto) 4.7 (0.0-15.0) % Eos % (Auto) 1.7 (0.0-7.0) % Baso % (Auto) 0.2 (0.0-1.5) % Neut # (Auto) 5.8 H (1.4-5.7) K/uL Lymph # (Auto) 3.7 H (0.6-2.4) K/uL Morton # (Auto) 0.5 (0.0-0.8) K/uL Eos # (Auto) 0.2 (0.0-0.7) K/uL Baso # (Auto) 0.0 (0.0-0.1) K/uL Nucleated RBC % 0.0 /100WBC Nucleated RBCs # 0 K/uL Lactate (0.20-2.00) mmol/L Sodium 139 (136-145) mmol/L Potassium 3.7 (3.5-5.1) mmol/L Chloride 108 H (98-107) mmol/L Carbon Dioxide 22.6 (21.0-32.0) mmol/L BUN 8 (7.0-18.0) mg/dL Creatinine 0.7 (0.6-1.0) mg/dL Est Cr Clr Drug Dosing 82.11 mL/min Estimated GFR (MDRD) > 60.0 ml/min Glucose 88 (74-106) mg/dL Calcium 7.8 L (8.5-10.1) mg/dL Total Bilirubin 0.3 (0.2-1.0) mg/dL AST 13 L (15-37) IU/L ALT 15 (14-63) IU/L Alkaline Phosphatase 45 L (46-116) U/L Troponin I (0.000-0.056) ng/mL Total Protein 5.5 L (6.4-8.2) g/dL Albumin 2.8 L (3.4-5.0) g/dL Globulin 2.7 (2.6-4.0) g/dL Albumin/Globulin Ratio 1.0 (0.9-1.6) Urine Color DARK YELLOW Urine Appearance CLOUDY Urine pH 8.0 (5.0-8.0) Ur Specific [place] 1.025 (1.001-1.035) Urine Protein 30 H (NEGATIVE) mg/dL Urine Glucose (UA) NEGATIVE (NEGATIVE) mg/dL Urine Ketones 15 H (NEGATIVE) mg/dL Urine Occult Blood LARGE H (NEGATIVE) Urine Nitrite NEGATIVE (NEGATIVE) Urine Bilirubin NEGATIVE (NEGATIVE) Urine Urobilinogen 0.2 (<2.0) EU/dL Ur Leukocyte Esterase MODERATE H (NEGATIVE) Urine RBC 50-60 (0-2/HPF) Urine WBC 40-50 (0-5/HPF) Ur Squamous Epith Cells MANY Urine Bacteria 2+ H (NEGATIVE) Blood Type Antibody Screen Crossmatch 07/22/19 07/22/19 07/22/19 Range/Units 18:30 18:30 19:25 WBC (4.0-11.0) K/uL RBC (4.30-5.90) M/uL Hgb (12.0-16.0) g/dL Hct (36.0-46.0) % MCV (80.0-98.0) fL MCH (27.0-32.0) pg MCHC (31.0-37.0) g/dL RDW Std Deviation (28.0-62.0) fl RDW Coeff of Zachariah (11.0-15.0) % Plt Count (150-400) K/uL MPV (7.40-12.00) fL Neut % (Auto) (48.0-80.0) % Lymph % (Auto) (16.0-40.0) % Morton % (Auto) (0.0-15.0) % Eos % (Auto) (0.0-7.0) % Baso % (Auto) (0.0-1.5) % Neut # (Auto) (1.4-5.7) K/uL Lymph # (Auto) (0.6-2.4) K/uL Morton # (Auto) (0.0-0.8) K/uL Eos # (Auto) (0.0-0.7) K/uL Baso # (Auto) (0.0-0.1) K/uL Nucleated RBC % /100WBC Nucleated RBCs # K/uL Lactate 1.1 (0.20-2.00) mmol/L Sodium (136-145) mmol/L Potassium (3.5-5.1) mmol/L Chloride (98-107) mmol/L Carbon Dioxide (21.0-32.0) mmol/L BUN (7.0-18.0) mg/dL Creatinine (0.6-1.0) mg/dL Est Cr Clr Drug Dosing mL/min Estimated GFR (MDRD) ml/min Glucose (74-106) mg/dL Calcium (8.5-10.1) mg/dL Total Bilirubin (0.2-1.0) mg/dL AST (15-37) IU/L ALT (14-63) IU/L Alkaline Phosphatase (46-116) U/L Troponin I 0.059 H* (0.000-0.056) ng/mL Total Protein (6.4-8.2) g/dL Albumin (3.4-5.0) g/dL Globulin (2.6-4.0) g/dL Albumin/Globulin Ratio (0.9-1.6) Urine Color Urine Appearance Urine pH (5.0-8.0) Ur Specific [place] (1.001-1.035) Urine Protein (NEGATIVE) mg/dL Urine Glucose (UA) (NEGATIVE) mg/dL Urine Ketones (NEGATIVE) mg/dL Urine Occult Blood (NEGATIVE) Urine Nitrite (NEGATIVE) Urine Bilirubin (NEGATIVE) Urine Urobilinogen (<2.0) EU/dL Ur Leukocyte Esterase (NEGATIVE) Urine RBC (0-2/HPF) Urine WBC (0-5/HPF) Ur Squamous Epith Cells Urine Bacteria (NEGATIVE) Blood Type O POSITIVE Antibody Screen NEGATIVE Crossmatch See Detail 07/23/19 07/23/19 Range/Units 06:25 06:25 WBC 8.44 (4.0-11.0) K/uL RBC 2.37 L (4.30-5.90) M/uL Hgb 7.1 L (12.0-16.0) g/dL Hct 20.9 L (36.0-46.0) % MCV 88.2 (80.0-98.0) fL MCH 30.0 (27.0-32.0) pg MCHC 34.0 (31.0-37.0) g/dL RDW Std Deviation 45.0 (28.0-62.0) fl RDW Coeff of Zachariah 14 (11.0-15.0) % Plt Count 230 (150-400) K/uL MPV 8.00 (7.40-12.00) fL Neut % (Auto) (48.0-80.0) % Lymph % (Auto) (16.0-40.0) % Morton % (Auto) (0.0-15.0) % Eos % (Auto) (0.0-7.0) % Baso % (Auto) (0.0-1.5) % Neut # (Auto) (1.4-5.7) K/uL Lymph # (Auto) (0.6-2.4) K/uL Morton # (Auto) (0.0-0.8) K/uL Eos # (Auto) (0.0-0.7) K/uL Baso # (Auto) (0.0-0.1) K/uL Nucleated RBC % 0.0 /100WBC Nucleated RBCs # 0 K/uL Lactate (0.20-2.00) mmol/L Sodium (136-145) mmol/L Potassium (3.5-5.1) mmol/L Chloride (98-107) mmol/L Carbon Dioxide (21.0-32.0) mmol/L BUN (7.0-18.0) mg/dL Creatinine (0.6-1.0) mg/dL Est Cr Clr Drug Dosing mL/min Estimated GFR (MDRD) ml/min Glucose (74-106) mg/dL Calcium (8.5-10.1) mg/dL Total Bilirubin (0.2-1.0) mg/dL AST (15-37) IU/L ALT (14-63) IU/L Alkaline Phosphatase (46-116) U/L Troponin I 0.064 H* (0.000-0.056) ng/mL Total Protein (6.4-8.2) g/dL Albumin (3.4-5.0) g/dL Globulin (2.6-4.0) g/dL Albumin/Globulin Ratio (0.9-1.6) Urine Color Urine Appearance Urine pH (5.0-8.0) Ur Specific [place] (1.001-1.035) Urine Protein (NEGATIVE) mg/dL Urine Glucose (UA) (NEGATIVE) mg/dL Urine Ketones (NEGATIVE) mg/dL Urine Occult Blood (NEGATIVE) Urine Nitrite (NEGATIVE) Urine Bilirubin (NEGATIVE) Urine Urobilinogen (<2.0) EU/dL Ur Leukocyte Esterase (NEGATIVE) Urine RBC (0-2/HPF) Urine WBC (0-5/HPF) Ur Squamous Epith Cells Urine Bacteria (NEGATIVE) Blood Type Antibody Screen Crossmatch Johnie Results Last 24 Hours: Microbiology 07/22/19 18:30 Influenza Type A Antigen Screen - Final Nasopharyngeal Swab NEGATIVE INFLUENZA A VIRUS AG REFERENCE RANGE: NEGATIVE Influenza Type B Antigen Screen - Final NEGATIVE INFLUENZA B VIRUS AG REFERENCE RANGE: NEGATIVE Med Orders - Current: Current Medications Acetaminophen (Tylenol) 650 mg PO Q4H PRN PRN Reason: Pain (Mild 1-3)/fever Fentanyl (Sublimaze) 50 mcg IVPUSH Q5M PRN PRN Reason: Pain Doxycycline Hyclate 100 mg/ (Sodium Chloride) 100 mls @ 100 mls/hr IV Q12H SUNITHA Last Admin: 07/23/19 00:58 Dose: 100 mls/hr Ceftriaxone Sodium/Dextrose 1 (gm/ Premix) 50 mls @ 100 mls/hr IV Q24H SUNITHA Acetaminophen 1,000 mg/ Premix 100 mls @ 400 mls/hr IV Q6H PRN PRN Reason: Pain Ibuprofen (Motrin) 600 mg PO Q6H PRN PRN Reason: Pain (mild 1-3) Last Admin: 07/23/19 00:00 Dose: 600 mg Methylergonovine Maleate (Methergine) 0.2 mg PO TID [facility] Stop: 07/24/19 06:01 Discontinued Medications Cefazolin Sodium (Ancef) Confirm Administered Dose 2 gm .ROUTE .STK-MED ONE Stop: 07/23/19 07:06 Fentanyl (Sublimaze) Confirm Administered Dose 100 mcg .ROUTE .STK-MED ONE Stop: 07/23/19 06:36 Glycopyrrolate (Robinul) Confirm Administered Dose 0.2 mg .ROUTE .STK-MED ONE Stop: 07/23/19 06:38 Sodium Chloride (Normal Saline) 1,000 mls @ 999 mls/hr IV BOLUS ONE Stop: 07/22/19 19:08 Last Admin: 07/22/19 18:37 Dose: 999 mls/hr Sodium Chloride (Normal Saline) 1,000 mls @ 999 mls/hr IV STAT ONE Stop: 07/22/19 20:03 Last Admin: 07/22/19 19:58 Dose: 999 mls/hr Ceftriaxone Sodium/Dextrose 1 (gm/ Premix) 50 mls @ 100 mls/hr IV ONETIME ONE Stop: 07/22/19 19:37 Last Admin: 07/22/19 19:58 Dose: 100 mls/hr Ceftriaxone Sodium/Dextrose 1 (gm/ Premix) 50 mls @ 100 mls/hr IV Q24H SUNITHA Sodium Chloride (Normal Saline) Confirm Administered Dose 20 mls @ as directed .ROUTE .STK-MED ONE Stop: 07/23/19 07:06 Ketorolac Tromethamine (Toradol) Confirm Administered Dose 30 mg .ROUTE .STK- MED ONE Stop: 07/23/19 06:38 Lidocaine (Xylocaine-Mpf 2%) Confirm Administered Dose 5 ml .ROUTE .STK-MED ONE Stop: 07/23/19 06:38 Methylergonovine Maleate (Methergine) Confirm Administered Dose 0.2 mg .ROUTE .STK-MED ONE Stop: 07/23/19 07:33 Methylergonovine Maleate (Methergine) 0.2 mg PO TID PRN PRN Reason: Bleeding Midazolam HCl (Versed 1 Mg/Ml) Confirm Administered Dose 2 mg .ROUTE .STK-MED ONE Stop: 07/23/19 06:36 Ondansetron HCl (Zofran) 4 mg IVPUSH ONETIME ONE Stop: 07/22/19 18:17 Last Admin: 07/22/19 18:37 Dose: 4 mg Ondansetron HCl (Zofran) Confirm Administered Dose 4 mg .ROUTE .STK-MED ONE Stop: 07/23/19 06:38 Propofol (Diprivan 20 Ml) Confirm Administered Dose 200 mg .ROUTE .STK-MED ONE Stop: 07/23/19 06:36 - Exam General: Alert, Oriented, Cooperative, No Acute Distress HEENT: Pupils Equal, Pupils Reactive Neck: Supple, Trachea Midline Lungs: Normal Respiratory Effort GI/Abdominal Exam: Soft, Non-Tender, No Organomegaly, No Distention (Female) Exam: Normal External Exam Back Exam: Normal Inspection, Full Range of Motion Extremities: Normal Inspection, Normal Range of Motion, Non-Tender, No Pedal Edema Skin: Warm, Dry, Intact Wound/Incisions: Healing Well Neurological: No New Focal Deficit Psy/Mental Status: Alert, Normal Affect, Normal Mood Sepsis Event Note - Evaluation Sepsis Screening Result: No Definite Risk - Focused Exam Vital Signs: Vital Signs Temp Temp Pulse Resp BP Pulse Ox 07/23/19 08:27 109 H 19 101/59 L 99 07/23/19 08:22 107 H 19 106/61 100 07/23/19 08:17 109 H 19 101/60 99 07/23/19 08:12 111 H 19 107/58 L 98 07/23/19 08:07 116 H 19 100/57 L 99 07/23/19 08:02 116 H 20 101/59 L 99 07/23/19 07:58 116 H 20 100/58 L 96 07/23/19 07:53 117 H 20 97/57 L 96 07/23/19 07:48 36.6 C 121 H 18 103/55 L 98 07/23/19 06:18 36.4 C 64 19 99/63 98 07/23/19 05:33 36.4 C 64 18 94/53 L 96 07/23/19 01:10 37.1 C 102 H 20 104/58 L 100 07/23/19 01:01 37.1 C 103 H 20 105/58 L 99 07/23/19 00:15 36.8 C 36.8 C 106 H 18 100/57 L 100 07/22/19 21:25 36.9 C 92 18 103/55 L 100 07/22/19 21:08 99 07/22/19 21:06 37.0 C 18 104/63 99 Date Exam was Performed: 07/23/19 Time Exam was Performed: 08:32 - Problem List Review Problem List Initiated/Reviewed/Updated: Yes - My Orders Last 24 Hours: My Active Orders 07/22/19 20:55 Telemetry Monitoring [Cardiac Monitoring] [RC] Q8H 07/22/19 22:12 Patient Status [ADT] Routine Ambulate [RC] ASDIRECTED Oxygen Therapy [RC] PRN VTE/DVT Education [RC] PER UNIT ROUTINE Vital Signs [RC] Q4H Acetaminophen [Tylenol] 650 mg PO Q4H PRN Ibuprofen [Motrin] 600 mg PO Q6H PRN Resuscitation Status Routine 07/22/19 22:30 Doxycycline [Vibramycin] 100 mg Sodium Chloride 0.9% [Normal Saline] 100 ml IV Q12H 07/23/19 14:00 CBC WITH MANUAL DIFF [HEME] Routine Methylergonovine [Methergine] 0.2 mg PO TID 07/23/19 19:00 cefTRIAXone [Rocephin in Dextrose,Iso-Osm 1 GM/50 ML] 1 gm Premix Bag 1 bag IV Q24H 07/23/19 Lunch Regular Diet [DIET] - Assessment Assessment:: 33yo s/p medical management of missed presenting with symptomatic anemia and retained products of conception, with signs of infection UTI vs. endometritis. - Plan Plan:: - afebrile after admission, WBC of 8.4 today - Hgb 6.2, received 3u of pRBC in ED. 7.2 this AM, plan for 2 additional unit - has been NPO, D&C this AM - continue 1g of ceftriaxone and doxycycline 100mg BID IV Continue inpatient management
--- NOTE | 2019-07-23 11:19 | PCM.POSTAN ---
POST ANESTHESIA ASSESSMENT - MENTAL STATUS Mental Status: Alert, Oriented - VITAL SIGNS Vital Signs: Last Vital Signs Temp 98 F 07/23/19 10:10 Pulse 100 07/23/19 10:10 Resp 16 07/23/19 10:10 BP 97/58 L 07/23/19 10:10 Pulse Ox 99 07/23/19 09:28 Orthostatic Blood Pressure [ 94/62 Standing] Orthostatic Blood Pressure [ 102/56 Sitting] Orthostatic Blood Pressure [ 118/63 Supine] - RESPIRATORY Respiratory Status: Respiratory Rate WNL, Airway Patent, O2 Saturation Stable - CARDIOVASCULAR CV Status: Pulse Rate WNL, Blood Pressure Stable - GASTROINTESTINAL GI Status: No Symptoms - POST OP HYDRATION Hydration Status: Adequate & Stable
[2019-07-23] MEDS: Methylergonovine 0.2 MG Tab PO SCH ×2 (15:19→21:32)
[2019-07-23] MEDS: Acetaminophen 325 MG Tab PO PRN ×2 (17:16→23:58)
[2019-07-23] MEDS ORDERED: cefTRIAXone 1 GM in Premix Bag 1 BAG IV SCH (19:00)
--- NOTE | 2019-07-23 20:56 | OR ---
SURGEON: Monty Johsnon MD DATE OF PROCEDURE: 07/23/2019 INDICATION: The patient is G4, P2-0-2-2 was diagnosed with missed measuring 8 weeks. She was treated with Cytotec 4 days ago. She was seen in the ED for symptomatic bleeding and fevers at home. She was found to be anemic with hemoglobin of 6.2, and was transfused with 3 units of PRBC. Pelvic ultrasound showed retained products of conception and she continued to have moderate bleeding. She was also given ceftriaxone and doxycycline to treat for presumed UTI versus endometritis. After discussing options of management, the patient desired to have dilation and suction curettage for treatment of incomplete . PREOPERATIVE DIAGNOSIS: Incomplete . POSTOPERATIVE DIAGNOSIS: Incomplete . PROCEDURE PERFORMED: Dilation and suction curettage. ANESTHESIOLOGIST: Dr. Logan Russell. ANESTHESIA: General anesthesia. FINDINGS: The uterus was approximately 6 weeks' size, anteverted, and mobile. Moderate amount of retained products of conception was removed from the uterine cavity. ESTIMATED BLOOD LOSS: 300 mL. DESCRIPTION OF PROCEDURE: The procedure was explained to the patient. Risks and complications include bleeding, infection, DVT, injury to surrounding organs including bladder, bowel, or ureter. The patient's questions were answered and consent was signed. The patient was taken to the operating room, where general anesthesia was applied. She was placed in dorsal lithotomy position, prepped and draped in sterile manner. Her bladder was emptied with a straight catheter. Bimanual exam revealed the uterus to be 6 weeks' size, anteverted, and mobile. No adnexal masses were felt. A speculum was placed in the vagina to visualize the cervix. There was a small amount of products that was visible at the cervical os. It was grasped with ring forceps and removed. The anterior lip of the cervix was grasped with an Allis clamp. The cervix was already open to approximately 1 cm. A size #7 curved suction curette was connected to the suction under adequate pressure and advanced to the uterine fundus. The suction curette was rotated while slowly extracting products of conception from the uterus. Two passes were made with the suction curettage. A sharp curettage was then performed carefully. 2 additional passes were made with the suction curettage after. No further products were noted with the suction. The products of conception were then sent to Pathology. The bleeding was moderate during the case and light after the procedure was completed. The Allis clamp was removed from the anterior cervix and the cervix was hemostatic. Fundal massage was applied and the uterus was firm and below the pubic bone. She was given Methergine IM during the case and will be continued on Methergine PO for 24hours. She will also be given 2 additional units of PRBC after the case. The patient tolerated the procedure well. She was awoken from anesthesia and brought to the recovery room in stable condition. JUAN PABLO FIERRO /[id number] MTDD
[2019-07-23] MEDS: Ibuprofen 600 MG Tab PO PRN ×2 (21:32)
[2019-07-24] MEDS: Doxycycline 100 MG in Sodium Chloride 0.9% 100 ML IV SCH ×2 (00:40→12:36)
[2019-07-24] MEDS: Ibuprofen 600 MG Tab PO PRN (06:10)
[2019-07-24] MEDS: Methylergonovine 0.2 MG Tab PO SCH (06:10)
--- NOTE | 2019-07-24 07:40 | PCM48HPAN ---
Post Anesthesia Note - EVALUATION WITHIN 48HRS OF ANESTHETIC Vital Signs in Normal Range: Yes Patient Participated in Evaluation: Yes Respiratory Function Stable: Yes Airway Patent: Yes Cardiovascular Function Stable: Yes Hydration Status Stable: Yes Pain Control Satisfactory: Yes Nausea and Vomiting Control Satisfactory: Yes Mental Status Recovered: Yes Vital Signs: Last Vital Signs Temp 36.9 C 07/24/19 04:21 Pulse 59 L 07/24/19 04:21 Resp 18 07/24/19 04:21 BP 94/45 L 07/24/19 04:21 Pulse Ox 98 07/24/19 04:21 Orthostatic Blood Pressure [ 94/62 Standing] Orthostatic Blood Pressure [ 102/56 Sitting] Orthostatic Blood Pressure [ 118/63 Supine]
--- NOTE | 2019-07-24 10:05 | PCM.DCSUM1 ---
Discharge Summary - Hospital Course Free Text/Narrative:: Admission HPI: 33yo presenting with fever, chills and headaches. Patient was diagnosed with a missed , she had medical management with cytotec on 07/19/2019 and 07/20/2019. Reports had very heavy bleeding for 2 days, with clots and soaking 1-2pads an hour. Bleeding was improved yesterday. She noted bad headaches and was feeling very weak when she ambulated. This morning she had fever at home of 101.8 and chills. She denies dysuria, nausea, vomiting or diarrhea. Denies sick contacts. Hospital Course: Patient found to have UTI, was treated with IV ceftriaxone. Afebrile after admission, WBC stable. She had symptomatic anemia with Hgb 6.2, received 3u of pRBC in ED. 7.2 on HD2 and given 2 additional units. She had pelvic US which showed retained products of conception, she was started on IV doxycycline for possible endometritis, she had uncomplicated dilation and suction curettage on HD2. She had significant improvement on HD3, continues to be afebrile. Urine culture + for E.coli. Hgb of 10.2. She was discharged home with keflex, doxycycline for 2 weeks and iron supplements. Will follow up with [facility] in 2 weeks. - Discharge Data Discharge Date: 07/24/19 Discharge Disposition: Home, Self-Care 01 Condition: Stable - Referral to Home Health Primary Care Physician: PCP None - Patient Summary/Data Operative Procedure(s) Performed: Dilation and suction curettage - Patient Instructions Diet: Usual Diet as Tolerated Activity: No Lifting Over 10 Pounds, No Strenuous Activities, Rest and Relax Today Driving: Do Not Drive Showering/Bathing: May Shower Notify Provider of: Fever, Increased Pain, Nausea and/or Vomiting (Heavy bleeding soaking a large pad every 1 hour for 3 hours) - Discharge Plan *PRESCRIPTION DRUG MONITORING PROGRAM REVIEWED*: Not Applicable *COPY OF PRESCRIPTION DRUG MONITORING REPORT IN PATIENT ELISSA: Not Applicable Prescriptions/Med Rec: Cephalexin [Keflex] 500 mg PO BID #28 capsule Doxycycline [Vibramycin] 100 mg PO BID #28 cap Ferrous Sulfate 325 mg PO BID #60 tablet Home Medications: Home Meds Albuterol Sulfate [Proair Respiclick] 2 puff INH QID PRN 01/17/18 [History] Calcium Carbonate/Vitamin D3 [Calcium 500 mg Chewable Tablet] 1 tab PO BID 01/17 [History] Fexofenadine [Natty] 1 tab PO DAILY 01/17/18 [History] Fish Oil/[place]-3 Fatty Acids [Fish Oil 1,000 MG] 1 cap PO BID 01/17/18 [History] Fluticasone Propionate [Flovent HFA 110 MCG] 2 puff INH BID PRN 01/17/18 [ History] Pnv No.95/Ferrous Fum/Folic AC [ Vitamin Tablet] 1 tab PO DAILY [History] Acetaminophen [Tylenol] 650 mg PO Q4H PRN tablet 07/24/19 [Rx] Cephalexin [Keflex] 500 mg PO BID #28 capsule 07/24/19 [Rx] Doxycycline [Vibramycin] 100 mg PO BID #28 cap 07/24/19 [Rx] Ferrous Sulfate 325 mg PO BID #60 tablet 07/24/19 [Rx] Ibuprofen [Motrin] 600 mg PO Q6H PRN tablet 07/24/19 [Rx] Patient Handouts: Dilation and Curettage or Vacuum Curettage, Care After Referrals: Monty Johnson MD [Physician] - - Discharge Summary/Plan Comment DC Time >30 min.: No - Patient Data Vitals - Most Recent: Last Vital Signs Temp 36.9 C 07/24/19 04:21 Pulse 59 L 07/24/19 04:21 Resp 18 07/24/19 04:21 BP 94/45 L 07/24/19 04:21 Pulse Ox 98 07/24/19 04:21 Orthostatic Blood Pressure [ 94/62 Standing] Orthostatic Blood Pressure [ 102/56 Sitting] Orthostatic Blood Pressure [ 118/63 Supine] Weight - Most Recent: 214 lb I&O - Last 24 hours: Intake & Output 07/23/19 07/24/19 07/24/19 22:59 06:59 14:59 Intake Total 400 850 Output Total 1225 600 Balance -825 250 Lab Results - Last 24 hrs: Laboratory Results - last 24 hr 07/22/19 07/23/19 07/24/19 Range/Units 19:25 14:40 06:40 WBC 9.86 8.68 (4.0-11.0) K/uL RBC 3.01 L 3.42 L (4.30-5.90) M/uL Hgb 8.7 L 10.1 L (12.0-16.0) g/dL Hct 25.5 L 29.6 L (36.0-46.0) % MCV 84.7 86.5 (80.0-98.0) fL MCH 28.9 29.5 (27.0-32.0) pg MCHC 34.1 34.1 (31.0-37.0) g/dL RDW Std Deviation 46.3 47.8 (28.0-62.0) fl RDW Coeff of Zachariah 15 15 (11.0-15.0) % Plt Count 206 235 (150-400) K/uL MPV 8.10 8.20 (7.40-12.00) fL Neut % (Auto) 65.1 (48.0-80.0) % Lymph % (Auto) 25.0 (16.0-40.0) % Talbot % (Auto) 5.5 (0.0-15.0) % Eos % (Auto) 4.1 (0.0-7.0) % Baso % (Auto) 0.3 (0.0-1.5) % Neut # (Auto) 5.6 (1.4-5.7) K/uL Lymph # (Auto) 2.2 (0.6-2.4) K/uL Talbot # (Auto) 0.5 (0.0-0.8) K/uL Eos # (Auto) 0.4 (0.0-0.7) K/uL Baso # (Auto) 0.0 (0.0-0.1) K/uL Neutrophils % (Manual) 60 (48.0-80.0) % Band Neutrophils % 1 % Lymphocytes % (Manual) 32 (16.0-40.0) % Monocytes % (Manual) 6 (0.0-15.0) % Eosinophils % (Manual) 1 (0.0-7.0) % Nucleated RBC % 0.0 0.0 /100WBC Absolute Seg Neuts 5.9 H (1.4-5.7) Band Neutrophils # 0.1 Lymphocytes # (Manual) 3.2 H (0.6-2.4) Monocytes # (Manual) 0.6 (0.0-0.8) Eosinophils # (Manual) 0.1 (0.0-0.7) Nucleated RBCs # 0 K/uL Troponin I (0.000-0.056) ng/mL Blood Type O POSITIVE Antibody Screen NEGATIVE Crossmatch See Detail 07/24/19 Range/Units 06:40 WBC (4.0-11.0) K/uL RBC (4.30-5.90) M/uL Hgb (12.0-16.0) g/dL Hct (36.0-46.0) % MCV (80.0-98.0) fL MCH (27.0-32.0) pg MCHC (31.0-37.0) g/dL RDW Std Deviation (28.0-62.0) fl RDW Coeff of Zachariah (11.0-15.0) % Plt Count (150-400) K/uL MPV (7.40-12.00) fL Neut % (Auto) (48.0-80.0) % Lymph % (Auto) (16.0-40.0) % Talbot % (Auto) (0.0-15.0) % Eos % (Auto) (0.0-7.0) % Baso % (Auto) (0.0-1.5) % Neut # (Auto) (1.4-5.7) K/uL Lymph # (Auto) (0.6-2.4) K/uL Talbot # (Auto) (0.0-0.8) K/uL Eos # (Auto) (0.0-0.7) K/uL Baso # (Auto) (0.0-0.1) K/uL Neutrophils % (Manual) (48.0-80.0) % Band Neutrophils % % Lymphocytes % (Manual) (16.0-40.0) % Monocytes % (Manual) (0.0-15.0) % Eosinophils % (Manual) (0.0-7.0) % Nucleated RBC % /100WBC Absolute Seg Neuts (1.4-5.7) Band Neutrophils # Lymphocytes # (Manual) (0.6-2.4) Monocytes # (Manual) (0.0-0.8) Eosinophils # (Manual) (0.0-0.7) Nucleated RBCs # K/uL Troponin I < 0.050 (0.000-0.056) ng/mL Blood Type Antibody Screen Crossmatch STEPAN Results - Last 24 hrs: Microbiology 07/22/19 18:30 Urine Culture - Final Urine, Clean Catch MIXED FRANCIA >100,000 CFU/ML 07/22/19 18:30 Aerobic Blood Culture - Preliminary Blood - Venous - Lab Draw NO GROWTH AFTER 1 DAY Anaerobic Blood Culture - Preliminary NO GROWTH AFTER 1 DAY 07/22/19 18:28 Aerobic Blood Culture - Preliminary Blood - Venous NO GROWTH AFTER 1 DAY Anaerobic Blood Culture - Preliminary NO GROWTH AFTER 1 DAY Med Orders - Current: Current Medications Acetaminophen (Tylenol) 650 mg PO Q4H PRN PRN Reason: Pain (Mild 1-3)/fever Last Admin: 07/23/19 23:58 Dose: 650 mg Ceftriaxone Sodium/Dextrose 1 (gm/ Premix) 50 mls @ 100 mls/hr IV Q24H SUNITHA Last Admin: 07/23/19 20:23 Dose: 100 mls/hr Acetaminophen 1,000 mg/ Premix 100 mls @ 400 mls/hr IV Q6H PRN PRN Reason: Pain Doxycycline Hyclate 100 mg/ (Sodium Chloride) 100 mls @ 100 mls/hr IV Q12H SUNITHA Last Admin: 07/24/19 00:40 Dose: 100 mls/hr Ibuprofen (Motrin) 600 mg PO Q6H PRN PRN Reason: Pain (mild 1-3) Last Admin: 07/24/19 06:10 Dose: 600 mg Discontinued Medications Cefazolin Sodium (Ancef) Confirm Administered Dose 2 gm .ROUTE .STK-MED ONE Stop: 07/23/19 07:06 Fentanyl (Sublimaze) Confirm Administered Dose 100 mcg .ROUTE .STK-MED ONE Stop: 07/23/19 06:36 Fentanyl (Sublimaze) 50 mcg IVPUSH Q5M PRN PRN Reason: Pain Glycopyrrolate (Robinul) Confirm Administered Dose 0.2 mg .ROUTE .STK-MED ONE Stop: 07/23/19 06:38 Sodium Chloride (Normal Saline) 1,000 mls @ 999 mls/hr IV BOLUS ONE Stop: 07/22/19 19:08 Last Admin: 07/22/19 18:37 Dose: 999 mls/hr Sodium Chloride (Normal Saline) 1,000 mls @ 999 mls/hr IV STAT ONE Stop: 07/22/19 20:03 Last Admin: 07/22/19 19:58 Dose: 999 mls/hr Ceftriaxone Sodium/Dextrose 1 (gm/ Premix) 50 mls @ 100 mls/hr IV ONETIME ONE Stop: 07/22/19 19:37 Last Admin: 07/22/19 19:58 Dose: 100 mls/hr Ceftriaxone Sodium/Dextrose 1 (gm/ Premix) 50 mls @ 100 mls/hr IV Q24H SUNITHA Doxycycline Hyclate 100 mg/ (Sodium Chloride) 100 mls @ 100 mls/hr IV Q12H [facility] Last Admin: 07/23/19 12:12 Dose: Not Given Sodium Chloride (Normal Saline) Confirm Administered Dose 20 mls @ as directed .ROUTE .STK-MED ONE Stop: 07/23/19 07:06 Ketorolac Tromethamine (Toradol) Confirm Administered Dose 30 mg .ROUTE .STK- MED ONE Stop: 07/23/19 06:38 Lidocaine (Xylocaine-Mpf 2%) Confirm Administered Dose 5 ml .ROUTE .STK-MED ONE Stop: 07/23/19 06:38 Methylergonovine Maleate (Methergine) Confirm Administered Dose 0.2 mg .ROUTE .STK-MED ONE Stop: 07/23/19 07:33 Methylergonovine Maleate (Methergine) 0.2 mg PO TID PRN PRN Reason: Bleeding Methylergonovine Maleate (Methergine) 0.2 mg PO TID SUNITHA Stop: 07/24/19 06:01 Last Admin: 07/24/19 06:10 Dose: 0.2 mg Midazolam HCl (Versed 1 Mg/Ml) Confirm Administered Dose 2 mg .ROUTE .STK-MED ONE Stop: 07/23/19 06:36 Ondansetron HCl (Zofran) 4 mg IVPUSH ONETIME ONE Stop: 07/22/19 18:17 Last Admin: 07/22/19 18:37 Dose: 4 mg Ondansetron HCl (Zofran) Confirm Administered Dose 4 mg .ROUTE .STK-MED ONE Stop: 07/23/19 06:38 Propofol (Diprivan 20 Ml) Confirm Administered Dose 200 mg .ROUTE .STK-MED ONE Stop: 07/23/19 06:36
== END 2019-07-24 12:30 | disposition home or self-care (01) ==
LOC: MW.ED 16:09 → MW.MS 19:32
PROVIDERS: ADMIT Obstetrics & Gynecology; ATTEND Obstetrics & Gynecology
DX: O03.38 Urinary tract infection following incomplete spontaneous abortion (principal); D64.9 Anemia, unspecified; J45.909 Unspecified asthma, uncomplicated
CPT/HCPCS: 01965; 36415; 36430; 71045; 71045-26; 76830; 76830-26; 80053; 81001; 83605; 84484; 85007; 85025; 85027; 86850; 86900; 86901; 86920; 86921; 86922; 87040; 87086; 87804; 88305; 93005; 96361; 96365; 96366; 96367; 96375; 96376; 99285-25; A9270-GY; G0378; J0690; J0696; J1885; J2001; J2210; J2250; J2405; J2704; J3010; J3490; J7030; J7050; P9016; U0001

== ENCOUNTER 2020-08-07 00:02 | Inpatient (IN) | payer BC ==
[2020-08-07] MEDS ORDERED: Misoprostol 25 MCG (1/4 of 100 MCG) Tab VAG PRN (00:19)
[2020-08-07] MEDS ORDERED: Terbutaline 1 MG/ML SDV SUBCUT PRN (00:19)
[2020-08-07] MEDS ORDERED: Ondansetron 4 MG/2 ML SDV IVPUSH PRN ×2 (00:23→21:26)
[2020-08-07] MEDS ORDERED: Oxytocin/0.9 % Sodium Chloride 30 UNIT/500 ML BAG IV SCH (00:30)
[2020-08-07] MEDS: Misoprostol 25 MCG (1/4 of 100 MCG) Tab VAG PRN ×2 (01:43→05:52)
[2020-08-07] MEDS: Lactated Ringers 1,000 ML IV SCH ×5 (05:31→17:36)
[2020-08-07] MEDS ORDERED: fentaNYL 100 MCG/2 ML SDV ONE (08:53)
[2020-08-07] MEDS ORDERED: Ropivacaine HCl/PF 100 ML ONE (08:54)
[2020-08-07] MEDS ORDERED: Bupivacaine 0.25% 10 ML SDV ONE (08:55)
--- NOTE | 2020-08-07 09:32 | PCM.POSTAN ---
POST ANESTHESIA ASSESSMENT - MENTAL STATUS Mental Status: Alert, Oriented - RESPIRATORY Respiratory Status: Respiratory Rate WNL, Airway Patent, O2 Saturation Stable - CARDIOVASCULAR CV Status: Pulse Rate WNL, Blood Pressure Stable - GASTROINTESTINAL GI Status: No Symptoms - POST OP HYDRATION Hydration Status: Adequate & Stable
--- NOTE | 2020-08-07 09:32 | PCM.PREANE ---
Preanesthetic Assessment - Anesthesia/Transfusion/Family Hx Anesthesia History: No Prior Anesthesia Family History of Anesthesia Reaction: No Transfusion History: No Prior Transfusion(s) - Physical Assessment Height: 5 ft Weight: 250 lb 6.4 oz ASA Class: 2E - Lab Values: Laboratory Last Values WBC 8.87 K/uL (4.0-11.0) 08/07/20 01:10 RBC 4.31 M/uL (4.30-5.90) 08/07/20 01:10 Hgb 12.4 g/dL (12.0-16.0) 08/07/20 01:10 Hct 36.5 % (36.0-46.0) 08/07/20 01:10 MCV 84.7 fL (80.0-98.0) 08/07/20 01:10 MCH 28.8 pg (27.0-32.0) 08/07/20 01:10 MCHC 34.0 g/dL (31.0-37.0) 08/07/20 01:10 RDW Std Deviation 42.6 fl (28.0-62.0) 08/07/20 01:10 RDW Coeff of Zachariah 14 % (11.0-15.0) 08/07/20 01:10 Plt Count 276 K/uL (150-400) 08/07/20 01:10 MPV 9.20 fL (7.40-12.00) 08/07/20 01:10 Blood Type O POSITIVE 08/07/20 01:10 Antibody Screen NEGATIVE 08/07/20 01:10 - Allergies Allergies/Adverse Reactions: Allergies Allergy/AdvReac Type Severity Reaction Status Date / Time seasonal Allergy Mild Wheezing Uncoded 08/07/20 00:19 - Anesthesia Plan Pre-Op Medication Ordered: None - Acknowledgements Anesthesia Type Planned: Epidural Additional Comments: G3 3-4 cm requesting lanbor epidural par no questions PreAnesthesia Questionnaire - Past Health History Medical/Surgical History: Denies Medical/Surgical History Respiratory History: Reports: Asthma 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: - Infectious Disease History Infectious Disease History: Reports: Chicken Pox - HOME MEDS Home Medications: Home Meds Albuterol Sulfate [Proair Respiclick] 2 puff INH QID PRN 01/17/18 [History] Calcium Carbonate/Vitamin D3 [Calcium 500 mg Chewable Tablet] 1 tab PO BID 0 01/17/18 [History] Fexofenadine [Natty] 1 tab PO DAILY 01/17/18 [History] Fish Oil/[place]-3 Fatty Acids [Fish Oil 1,000 MG] 1 cap PO BID 01/17/18 [History] Fluticasone Propionate [Flovent HFA 110 MCG] 2 puff INH BID PRN 01/17/18 [History] Pnv No.95/Ferrous Fum/Folic AC [ Vitamin Tablet] 1 tab PO DAILY 01/17/18 [History] Acetaminophen [Tylenol] 650 mg PO Q4H PRN tablet 07/24/19 [Rx] Doxycycline [Vibramycin] 100 mg PO BID #28 cap 07/24/19 [Rx] Ferrous Sulfate 325 mg PO BID #60 tablet 07/24/19 [Rx] Ibuprofen [Motrin] 600 mg PO Q6H PRN tablet 07/24/19 [Rx] cephALEXin [Keflex] 500 mg PO BID #28 capsule 07/24/19 [Rx] - CURRENT (IN HOUSE) MEDS Current Meds: Current Medications Oxytocin/Sodium Chloride (Oxytocin 30 Unit/500 Ml-Ns) 30 unit in 500 mls @ 2 mls/hr IV TITRATE SUNITHA; Protocol Lactated Ringer's (Ringers, Lactated) 1,000 mls @ 150 mls/hr IV ASDIRECTED SUNITHA Last Admin: 08/07/20 09:14 Dose: 999 mls/hr Documented by: Misoprostol (Misoprostol 25 Mcg (1/4 Of 100 Mcg) Tab) 25 mcg VAG ONETIME PRN PRN Reason: Cervical Ripening Misoprostol (Misoprostol 25 Mcg (1/4 Of 100 Mcg) Tab) 25 mcg VAG Q4H PRN PRN Reason: Cervical Ripening Last Admin: 08/07/20 05:52 Dose: 25 mcg Documented by: Ondansetron HCl (Ondansetron 4 Mg/2 Ml Sdv) 4 mg IVPUSH Q4H PRN PRN Reason: Nausea/Vomiting Terbutaline Sulfate (Terbutaline 1 Mg/Ml Sdv) 0.25 mg SUBCUT ASDIRECTED PRN PRN Reason: Tacysystole Discontinued Medications Bupivacaine HCl (Bupivacaine 0.25% 10 Ml Sdv) Confirm Administered Dose 10 ml .ROUTE .STK-MED ONE Stop: 08/07/20 08:56 Fentanyl (Fentanyl 100 Mcg/2 Ml Sdv) Confirm Administered Dose 100 mcg .ROUTE .STK-MED ONE Stop: 08/07/20 08:54 Ropivacaine (Naropin 0.2%) Confirm Administered Dose 100 mls @ as directed .ROUTE .STK-MED ONE Stop: 08/07/20 08:55
[2020-08-07] MEDS ORDERED: Lidocaine 2% with EPINEPHrine 1:200,000 20 ML SDV ONE (19:16)
[2020-08-07] MEDS ORDERED: Morphine PF 10 MG/10 ML SDV ONE (19:18)
[2020-08-07] MEDS ORDERED: Ondansetron 4 MG/2 ML SDV ONE (19:20)
[2020-08-07] MEDS ORDERED: Citric Acid/Sodium Citrate Solution 30 ML Cup ONE (19:20)
[2020-08-07] MEDS ORDERED: Oxytocin 10 Units/1 ML SDV ONE ×2 (19:29→20:34)
[2020-08-07] MEDS ORDERED: Sodium Chloride 0.9% 20 ML ONE (19:52)
[2020-08-07] MEDS ORDERED: ceFAZolin 1 GM Vial ONE (19:52)
[2020-08-07] MEDS ORDERED: Phenylephrine 1% 10 MG/ML SDV ONE (19:53)
[2020-08-07] MEDS ORDERED: fentaNYL 250 MCG/5 ML SDV ONE (20:39)
[2020-08-07] MEDS ORDERED: Midazolam 1 MG/ML 2 ML SDV ONE (20:40)
[2020-08-07] MEDS ORDERED: Methylergonovine 0.2 MG/1 ML Amp IM PRN (21:26)
[2020-08-07] MEDS ORDERED: Misoprostol 200 MCG Tab RECTAL PRN (21:26)
[2020-08-07] MEDS ORDERED: diphenhydrAMINE 50 MG/ML SDV IVPUSH PRN (21:26)
[2020-08-07] MEDS ORDERED: Bisacodyl 10 MG Supp RECTAL PRN (21:26)
[2020-08-07] MEDS ORDERED: Lanolin 100% Cream 7 GM Tube TOP PRN (21:26)
[2020-08-07] MEDS ORDERED: Oxytocin 10 Units/1 ML SDV IM PRN (21:26)
[2020-08-07] MEDS ORDERED: Tranexamic Acid 1,000 MG in Sodium Chloride 0.9% 100 ML IV PRN (21:26)
[2020-08-07] MEDS ORDERED: Oxytocin/Lactated Ringers 30 UNIT/500 ML BAG IV SCH (21:30)
[2020-08-07] MEDS ORDERED: Lactated Ringers 1,000 ML IV SCH (21:30)
[2020-08-07] MEDS ORDERED: Ampicillin/Sulbactam Na 3 GM in Sodium Chloride 0.9% 100 ML IV SCH (21:30)
[2020-08-07] MEDS ORDERED: Ketorolac 30 MG/ML SDV IVPUSH SCH (21:30)
--- NOTE | 2020-08-07 21:34 | PCM.OPNOTE ---
- General Post-Op/Procedure Note Date of Surgery/Procedure: 08/07/20 Operative Procedure(s): Primary Lower segment transverse cesearean section Findings: Live male delivered at 3940g , 8/9 weight 3940g Methergine , TXA given due to PPH secondary to uterine atony Pre Op Diagnosis: 34yo @ 40w2d with Arrest of Dilatation Post-Op Diagnosis: same Anesthesia Technique: Epidural Primary Surgeon: Gina Patel Pathology: Placenta Fluid Replacement, Intraop: 1,800 Output, Urine Amount: 150 EBL in mLs: 1,500 Complications: Hemorrhage Condition: Good Free Text/Narrative:: Intake & Output 08/07/20 08/07/20 08/07/20 06:59 14:59 22:59 Intake Total 2820 975 Output Total 850 Balance 2820 125
[2020-08-07] MEDS ORDERED: Nalbuphine 10 MG/1 ML Vial IVPUSH PRN (21:36)
[2020-08-07] MEDS ORDERED: Naloxone 0.4 MG/ML Syringe IVPUSH ONE (21:36)
[2020-08-07] MEDS ORDERED: Naloxone 0.4 MG/ML Syringe IVPUSH PRN (21:36)
--- NOTE | 2020-08-08 07:51 | PCM48HPAN ---
Post Anesthesia Note - EVALUATION WITHIN 48HRS OF ANESTHETIC Vital Signs in Normal Range: Yes Patient Participated in Evaluation: Yes Respiratory Function Stable: Yes Airway Patent: Yes Cardiovascular Function Stable: Yes Hydration Status Stable: Yes Pain Control Satisfactory: Yes Nausea and Vomiting Control Satisfactory: Yes Mental Status Recovered: Yes Vital Signs: Last Vital Signs Temp 36.1 C 08/08/20 01:00 Pulse 102 H 08/08/20 06:00 Resp 14 08/08/20 06:00 BP 112/64 08/08/20 05:00 Pulse Ox 100 08/08/20 05:00
[2020-08-08] MEDS: Ferrous Sulfate 325 MG Tab PO SCH ×2 (08:31→17:56)
[2020-08-08] MEDS: Docusate Sodium 100 MG Cap PO SCH ×2 (08:31→20:17)
--- NOTE | 2020-08-08 09:35 | OR ---
SURGEON: KEVIN BECERRIL DATE OF PROCEDURE: 08/07/2020 PREOPERATIVE DIAGNOSIS: A 34-year-old, -0-2-2, at 40 weeks 2 days with arrest of dilatation. POSTOPERATIVE DIAGNOSIS: A 34-year-old, -0-2-2, at 40 weeks 2 days with arrest of dilatation. Hemorrhage PROCEDURE: Primary lower segment transverse section. ANAESTHESIA Epidural ESTIMATED BLOOD LOSS: 1500. INTRAVENOUS FLUIDS: 1800. URINE OUTPUT: 150. NOTES AND FINDING: A live male delivered at 2030. score of 8 and 9. Weight is 3940 g. The patient also had excessive bleeding, so was given Methergine and tranexamic acid in addition to IV pitocin ( 30u in 500m/NS) BRIEF HISTORY ABOUT THE PATIENT: She is a 34-year-old, -0-2-2, at 40 weeks 2 days, GBS negative, was admitted for induction of labor. Induction of labor was started with Cytotec. The patient got 2 doses. She made change to 3, 50, -2. AROM was done. Pitocin was started. The patient had a normal labor curve, became about 9cm with anterior lip. At this point, she was encouraged to push, she had pushed for about 1 hr before my arrival. I examined patient and noted OP position. Attempt was made to rotate the baby from OP position and continue to push . I pushed for about 30mins with patient ,there was no descent, and some caput was forming. The anterior lip was still present and swelling was noted. As a result, the patient was consulted for which she agreed to. She understood the risks and benefits, and she wanted to proceed. DESCRIPTION OF PROCEDURE: The patient was taken to the operative operating room where the epidural anesthesia was topped off. She was prepared and draped in the dorsal supine position with a leftward tilt. A Pfannenstiel skin incision was made with a scalpel and carried down to the fascia with the Bovie. The fascia was incised and extended upwards and laterally. Rectal diastasis was noted. Peritoneum was entered without any difficulty. The Holden retractor was placed to expose the lower uterine segment. The bladder flap was created, then lower uterine incision was made. Fetus was in OT position, was brought to the level of the incision.Then with fundal pressure , infant was delivered without any difficulty. The cord was clamped and cut and was handed over to the awaiting paint specialist. There was a lot of bleeding noted on the little bit of extension on the left, which was sutured without any difficulty. The uterus was repaired in 2 layers. Uterus was noted to be hypotonic. Hence uterotonic agent was given as noted above. The uterus was repaired in 2 layers. After repair of the uterus, the Holden was removed and the bladder blade was inserted. Incision was noted to be hemostatic. The gutters were cleaned. Normal tubes, ovaries, and fallopian tubes were noted. The peritoneum was closed. The rectus muscle was exposed in the midline with 1 interrupted mattress suture. Then the fascia was closed with 0 Vicryl in a continuous fashion. The subcutaneous fat was closed with 3-0 plain gut, and the skin was closed with 4-0 Monocryl on a Christopher needle. All instrument and pad counts were correct x2. The patient tolerated the procedure well and will get the CBC, H and H done, and she will receive Unasyn for 24 hours. Depending on the CBC, the patient might receive blood. blood was cross-matched. LETI FIERRO /[id number] MACIEL
[2020-08-08] MEDS ORDERED: Sodium Chloride 0.9% 100 ML ONE (13:53)
[2020-08-08] MEDS: Ampicillin/Sulbactam Na 3 GM in Sodium Chloride 0.9% 100 ML IV SCH ×2 (14:32→23:25)
--- NOTE | 2020-08-08 19:14 | PCM.PNPP ---
- General Info Date of Service: 08/08/20 Subjective Update: Patient seen at bedside , she denies any complains She has ambulated, she denies dizziness Normal Urine output Functional Status: Reports: Pain Controlled, Tolerating Diet, Ambulating - Review of Systems General: Reports: No Symptoms HEENT: Reports: No Symptoms Pulmonary: Reports: No Symptoms Cardiovascular: Reports: No Symptoms Gastrointestinal: Reports: No Symptoms Genitourinary: Reports: No Symptoms Musculoskeletal: Reports: No Symptoms Skin: Reports: No Symptoms Neurological: Reports: No Symptoms Psychiatric: Reports: No Symptoms - General Info Date of Service: 08/08/20 - Patient Data Vital Signs - Most Recent: Last Vital Signs Temp 36.1 C 08/08/20 16:13 Pulse 113 H 08/08/20 13:13 Resp 14 08/08/20 18:09 BP 109/60 08/08/20 17:07 Pulse Ox 97 08/08/20 18:09 Weight - Most Recent: 113.58 kg I&O - Last 24 Hours: Intake & Output 08/08/20 08/08/20 08/08/20 06:59 14:59 22:59 Output Total 745 2500 1600 Balance -745 -2500 -1600 Lab Results - Last 24 Hours: Laboratory Results - last 24 hr 08/07/20 08/07/20 08/07/20 Range/Units 01:10 01:10 20:13 WBC (4.0-11.0) K/uL RBC (4.30-5.90) M/uL Hgb (12.0-16.0) g/dL Hct (36.0-46.0) % MCV (80.0-98.0) fL MCH (27.0-32.0) pg MCHC (31.0-37.0) g/dL RDW Std Deviation (28.0-62.0) fl RDW Coeff of Zachariah (11.0-15.0) % Plt Count (150-400) K/uL MPV (7.40-12.00) fL Neutrophils % (Manual) (48.0-80.0) % Band Neutrophils % % Lymphocytes % (Manual) (16.0-40.0) % Monocytes % (Manual) (0.0-15.0) % Nucleated RBC % /100WBC Absolute Seg Neuts (1.4-5.7) Band Neutrophils # Lymphocytes # (Manual) (0.6-2.4) Monocytes # (Manual) (0.0-0.8) Cord ABG pH 7.037 L (7.18-7.38) Cord ABG Base Excess -14 L (-10--2) RPR Non-Reac (Non-Reac) Blood Type O POSITIVE Antibody Screen NEGATIVE Crossmatch See Detail 08/07/20 08/08/20 Range/Units 21:37 05:05 WBC 21.27 H (4.0-11.0) K/uL RBC 3.68 L (4.30-5.90) M/uL Hgb 10.8 L 8.7 L (12.0-16.0) g/dL Hct 31.8 L 25.7 L (36.0-46.0) % MCV 86.4 (80.0-98.0) fL MCH 29.3 (27.0-32.0) pg MCHC 34.0 (31.0-37.0) g/dL RDW Std Deviation 44.0 (28.0-62.0) fl RDW Coeff of Zachariah 14 (11.0-15.0) % Plt Count 209 (150-400) K/uL MPV 9.20 (7.40-12.00) fL Neutrophils % (Manual) 71 (48.0-80.0) % Band Neutrophils % 21 % Lymphocytes % (Manual) 3 L (16.0-40.0) % Monocytes % (Manual) 5 (0.0-15.0) % Nucleated RBC % 0.0 /100WBC Absolute Seg Neuts 15.1 H (1.4-5.7) Band Neutrophils # 4.5 Lymphocytes # (Manual) 0.6 (0.6-2.4) Monocytes # (Manual) 1.1 H (0.0-0.8) Cord ABG pH (7.18-7.38) Cord ABG Base Excess (-10--2) RPR (Non-Reac) Blood Type Antibody Screen Crossmatch Med Orders - Current: Current Medications Bisacodyl (Bisacodyl 10 Mg Supp) 10 mg RECTAL ONETIME PRN PRN Reason: Constipation Diphenhydramine HCl (Diphenhydramine 50 Mg/Ml Sdv) 25 mg IVPUSH Q6H PRN PRN Reason: Itching or Nausea Docusate Sodium (Docusate Sodium 100 Mg Cap) 100 mg PO BID [facility] Last Admin: 08/08/20 08:31 Dose: 100 mg Documented by: Emollient Ointment (Lanolin 100% Cream 7 Gm Tube) 0 gm TOP ASDIRECTED PRN PRN Reason: Sore Nipples [facility]ous Sulf[facility] ([facility] 325 Mg [facility]) [facility] Admin: 08/08/20 17:56 Dose: 325 mg Documented by: Oxytocin/Sodium Chloride (Oxytocin 30 Unit/500 Ml-Ns) 30 unit in 500 mls @ 2 mls/hr IV TITRATE [facility]; Protocol Last Titration: 08/07/20 18:45 Dose: 0 munits/min, 0 mls/hr Documented by: Lactated Ringer's (Ringers, Lactated) 1,000 mls @ 125 mls/hr IV ASDIRECTED [facility] Last Admin: 08/07/20 22:58 Dose: 125 mls/hr Documented by: Oxytocin/Lactated Ringer's (Pitocin In Lr 30 Units/500 Ml) 30 unit in 500 mls @ 2 mls/hr IV TITRATE [facility]; Protocol Tranexamic Acid 1,000 mg/ (Sodium Chloride) 110 mls @ 660 mls/hr IV ONETIME PRN PRN Reason: Bleeding Ampicillin Sodium/Sulbactam (Sodium 3 gm/ Sodium Chloride) 100 mls @ 200 mls/hr IV Q8H [facility] Stop: 08/08/20 22:59 Last Admin: 08/08/20 14:32 Dose: 200 mls/hr Documented by: Ibuprofen (Ibuprofen 800 Mg Tab) 800 mg PO Q8H PRN PRN Reason: mild pain or fever Ketorolac Tromethamine (Ketorolac 30 Mg/Ml Sdv) 30 mg IVPUSH Q6H [facility] Stop: 08/08/20 21:31 Methylergonovine Maleate (Methylergonovine 0.2 Mg/1 Ml Amp) 0.2 mg IM ONETIME PRN PRN Reason: Excessive Vaginal Bleeding Misoprostol (Misoprostol 25 Mcg (1/4 Of 100 Mcg) Tab) 25 mcg VAG ONETIME PRN PRN Reason: Cervical Ripening Misoprostol (Misoprostol 25 Mcg (1/4 Of 100 Mcg) Tab) 25 mcg VAG Q4H PRN PRN Reason: Cervical Ripening Last Admin: 08/07/20 05:52 Dose: 25 mcg Documented by: Misoprostol (Misoprostol 200 Mcg Tab) 1,000 mcg RECTAL ONETIME PRN PRN Reason: excessive bleeding Nalbuphine HCl (Nalbuphine 10 Mg/1 Ml Vial) 5 mg IVPUSH Q3H PRN PRN Reason: Pruritis Stop: 08/08/20 21:38 Last Admin: 08/08/20 11:38 Dose: 5 mg Documented by: Naloxone HCl (Naloxone 0.4 Mg/Ml Syringe) 0.1 mg IVPUSH ONETIME PRN PRN Reason: Respiratory Depression Stop: 08/08/20 21:38 Ondansetron HCl (Ondansetron 4 Mg/2 Ml Sdv) 4 mg IVPUSH Q4H PRN PRN Reason: Nausea/Vomiting Oxycodone/Acetaminophen (Acetaminophen/Oxycodone 325-5 Mg Tab) 1 tab PO Q4H PRN PRN Reason: Pain (moderate 4-6) Oxycodone/Acetaminophen (Acetaminophen/Oxycodone 325-5 Mg Tab) 2 tab PO Q4H PRN PRN Reason: Pain (moderate 4-6) Oxytocin (Oxytocin 10 Units/1 Ml Sdv) 10 unit IM ASDIRECTED PRN PRN Reason: Excessive Vaginal Bleeding Terbutaline Sulfate (Terbutaline 1 Mg/Ml Sdv) 0.25 mg SUBCUT ASDIRECTED PRN PRN Reason: Tacysystole Discontinued Medications Bupivacaine HCl (Bupivacaine 0.25% 10 Ml Sdv) Confirm Administered Dose 10 ml .ROUTE .STK-MED ONE Stop: 08/07/20 08:56 Cefazolin Sodium (Cefazolin 1 Gm Vial) Confirm Administered Dose 1 gm .ROUTE .STK-MED ONE Stop: 08/07/20 19:53 Citric Acid/Sodium Citrate (Citric Acid/Sodium Citrate Solution 30 Ml Cup) Confirm Administered Dose 30 ml .ROUTE .STK-MED ONE Stop: 08/07/20 19:21 Last Admin: 08/07/20 19:26 Dose: 30 ml Documented by: Fentanyl (Fentanyl 100 Mcg/2 Ml Sdv) Confirm Administered Dose 100 mcg .ROUTE .STK-MED ONE Stop: 08/07/20 08:54 Fentanyl (Fentanyl 250 Mcg/5 Ml Sdv) Confirm Administered Dose 250 mcg .ROUTE .STK-MED ONE Stop: 08/07/20 20:40 Lactated Ringer's (Ringers, Lactated) 1,000 mls @ 150 mls/hr IV ASDIRECTED [facility] Last Admin: 08/07/20 17:36 Dose: 150 mls/hr Documented by: Ropivacaine (Naropin 0.2%) Confirm Administered Dose 100 mls @ as directed .ROUTE .STK-MED ONE Stop: 08/07/20 08:55 Sodium Chloride (Normal Saline) Confirm Administered Dose 20 mls @ as directed .ROUTE .STK-MED ONE Stop: 08/07/20 19:53 Cefazolin Sodium/Dextrose (Ancef 2 Gm/50 Ml) Confirm Administered Dose 50 mls @ as directed .ROUTE .STK-MED ONE Stop: 08/07/20 19:53 Ampicillin Sodium/Sulbactam (Sodium 3 gm/ Sodium Chloride) 100 mls @ 200 mls/hr IV Q8H [facility] Stop: 08/08/20 13:59 Last Admin: 08/08/20 06:03 Dose: 200 mls/hr Documented by: Sodium Chloride (Normal Saline) Confirm Administered Dose 100 mls @ as directed .ROUTE .STK-MED ONE Stop: 08/08/20 13:54 Lidocaine/Epinephrine (Lidocaine 2% With Epinephrine 1:200,000 20 Ml Sdv) Confirm Administered Dose 20 ml .ROUTE .STK-MED ONE Stop: 08/07/20 19:17 Midazolam HCl (Midazolam 1 Mg/Ml 2 Ml Sdv) Confirm Administered Dose 2 mg .ROUTE .STK-MED ONE Stop: 08/07/20 20:41 Morphine Sulfate (Morphine Pf 10 Mg/10 Ml Sdv) Confirm Administered Dose 10 mg .ROUTE .STK-MED ONE Stop: 08/07/20 19:19 Naloxone HCl (Naloxone 0.4 Mg/Ml Syringe) 0.1 mg IVPUSH ONETIME ONE Stop: 08/07/20 21:37 Ondansetron HCl (Ondansetron 4 Mg/2 Ml Sdv) 4 mg IVPUSH Q4H PRN PRN Reason: Nausea/Vomiting Last Admin: 08/07/20 10:31 Dose: 4 mg Documented by: Ondansetron HCl (Ondansetron 4 Mg/2 Ml Sdv) Confirm Administered Dose 4 mg .ROUTE .STK-MED ONE Stop: 08/07/20 19:21 Oxytocin (Oxytocin 10 Units/1 Ml Sdv) Confirm Administered Dose 20 unit .ROUTE .STK-MED ONE Stop: 08/07/20 19:30 Oxytocin (Oxytocin 10 Units/1 Ml Sdv) Confirm Administered Dose 10 unit .ROUTE .STK-MED ONE Stop: 08/07/20 20:35 Phenylephrine HCl (Phenylephrine 1% 10 Mg/Ml Sdv) Confirm Administered Dose 10 mg .ROUTE .STK-MED ONE Stop: 08/07/20 19:54 Tranexamic Acid (Tranexamic Acid 1,000 Mg/10 Ml Amp) Confirm Administered Dose 1,000 mg .ROUTE .STK-MED ONE Stop: 08/07/20 20:30 - Interaction Support Person: - Recovery Exam Fundal Tone: Firm Fundal Level: 1 Fingerbreadths Below Umbilicus Fundal Placement: Midline Lochia Amount: Scant Lochia Color: Rubra/Red Perineum Description: Intact, Minimal Bruising/Swelling Episiotomy/Laceration: None Bladder Status: Indwelling Catheter in Place Urinary Elimination: Indwelling Catheter - Exam General: Alert HEENT: Pupils Equal Neck: Supple Lungs: Clear to Auscultation Cardiovascular: Regular Rate, Regular Rhythm Extremities: Normal Inspection Wound/Incisions: Dressing Dry and Intact Psy/Mental Status: Alert - Problem List & Annotations (1) delivery delivered SNOMED Code(s): 281329303 Code(s): O82 - ENCOUNTER FOR DELIVERY WITHOUT INDICATION Status: Acute Current Visit: Yes (2) Acute blood loss anemia SNOMED Code(s): 228249133 Code(s): D62 - ACUTE POSTHEMORRHAGIC ANEMIA Status: Acute Current Visit: Yes - Problem List Review Problem List Initiated/Reviewed/Updated: Yes - My Orders Last 24 Hours: My Active Orders 08/07/20 21:26 Notify Provider Intake and Out [RC] ASDIRECTED Notify Provider Vital Signs [RC] ASDIRECTED Acetaminophen/oxyCODONE [Percocet 325-5 MG] 1 tab PO Q4H PRN Acetaminophen/oxyCODONE [Percocet 325-5 MG] 2 tab PO Q4H PRN Ibuprofen [Motrin] 800 mg PO Q8H PRN Lanolin [Lansinoh HPA] See Dose Instructions TOP ASDIRECTED PRN Methylergonovine [Methergine] 0.2 mg IM ONETIME PRN Ondansetron [Zofran] 4 mg IVPUSH Q4H PRN Oxytocin [Pitocin] 10 unit IM ASDIRECTED PRN Tranexamic Acid [Cyklokapron] 1,000 mg Sodium Chloride 0.9% [Normal Saline] 100 ml IV ONETIME bisacodyL [Dulcolax] 10 mg RECTAL ONETIME PRN diphenhydrAMINE [Benadryl] 25 mg IVPUSH Q6H PRN miSOPROStoL [Cytotec] 1,000 mcg RECTAL ONETIME PRN Resuscitation Status Routine 08/07/20 21:27 Patient Status [ADT] Routine Ambulate [RC] PER UNIT ROUTINE Antiembolic Devices [RC] PER UNIT ROUTINE Communication Order [RC] PER UNIT ROUTINE Communication Order [RC] PER UNIT ROUTINE Communication Order [RC] Per Unit Routine May Shower [RC] ASDIRECTED RT Incentive Spirometry [RC] Q2HWA Vital Signs [RC] PER UNIT ROUTINE Assess Lochia [WOMSER] Per Unit Routine Assess Uterine Involution [WOMSER] Per Unit Routine Breast Pump [WOMSER] Per Unit Routine Peripheral IV Discontinue [OM.PC] Routine Sequential Compression Device [OM.PC] Per Unit Routine 08/07/20 21:30 Ketorolac [Toradol] 30 mg IVPUSH Q6H Lactated Ringers [Ringers, Lactated] 1,000 ml IV ASDIRECTED Oxytocin/Lactated Ringers [Pitocin in LR 30 Units/500 ML] 30 unit in 500 ml IV TITRATE 08/08/20 09:00 Docusate Sodium [Colace] 100 mg PO BID 08/08/20 14:30 Ampicillin/Sulbactam Na [Unasyn] 3 gm Sodium Chloride 0.9% [Normal Saline] 100 ml IV Q8H - Assessment Assessment:: 34yo P3 s/p Primary for arrest of dilation, anemia sec ondary to blood loss stable , POD 1 Rubella Immune , Normal Lochia - Plan Plan:: Regular Diet Pain control as needed Venodynes Continue IV iron X 1 dose Discharge home tomorrow
[2020-08-08] MEDS ORDERED: Iron Sucrose Complex 200 MG in Sodium Chloride 0.9% 100 ML IV ONE (20:05)
[2020-08-08] MEDS: Acetaminophen/oxyCODONE 325-5 MG Tab PO PRN (20:16)
[2020-08-09] MEDS: Acetaminophen/oxyCODONE 325-5 MG Tab PO PRN ×5 (00:29→21:26)
[2020-08-09] MEDS: Docusate Sodium 100 MG Cap PO SCH ×2 (08:25→20:34)
[2020-08-09] MEDS: Ferrous Sulfate 325 MG Tab PO SCH ×2 (08:25→17:11)
[2020-08-09] MEDS ORDERED: diphenhydrAMINE 50 MG Cap PO ONE (09:57)
--- NOTE | 2020-08-09 10:04 | PCM.PNPP ---
- General Info Date of Service: 08/09/20 Functional Status: Reports: Pain Controlled, Tolerating Diet, Urinating. Denies: Ambulating (sees spots when ambulating feels dizzy) - Review of Systems General: Reports: Weakness, Fatigue HEENT: Reports: No Symptoms Pulmonary: Reports: No Symptoms Cardiovascular: Reports: Palpitations, Lightheadedness Gastrointestinal: Reports: No Symptoms Genitourinary: Reports: No Symptoms Musculoskeletal: Reports: No Symptoms Skin: Reports: No Symptoms Neurological: Reports: No Symptoms Psychiatric: Reports: No Symptoms - General Info Date of Service: 08/09/20 - Patient Data Vital Signs - Most Recent: Last Vital Signs Temp 36.6 C 08/09/20 08:28 Pulse 96 08/09/20 08:28 Resp 18 08/09/20 08:28 BP 104/58 L 08/09/20 08:28 Pulse Ox 100 08/09/20 08:28 Weight - Most Recent: 113.58 kg I&O - Last 24 Hours: Intake & Output 08/08/20 08/09/20 08/09/20 22:59 06:59 14:59 Intake Total 900 Output Total 1600 1750 Balance -1600 -850 Lab Results - Last 24 Hours: Laboratory Results - last 24 hr 08/07/20 08/09/20 Range/Units 01:10 06:10 Hgb 7.3 L (12.0-16.0) g/dL Hct 22.1 L (36.0-46.0) % RPR Non-Reac (Non-Reac) Med Orders - Current: Current Medications Bisacodyl (Bisacodyl 10 Mg Supp) 10 mg RECTAL ONETIME PRN PRN Reason: Constipation Diphenhydramine HCl (Diphenhydramine 50 Mg/Ml Sdv) 25 mg IVPUSH Q6H PRN PRN Reason: Itching or Nausea Diphenhydramine HCl (Diphenhydramine 50 Mg Cap) 50 mg PO ONETIME ONE Stop: 08/09/20 09:58 Docusate Sodium (Docusate Sodium 100 Mg Cap) 100 mg PO BID [facility] Last Admin: 08/09/20 08:25 Dose: 100 mg Documented by: Emollient Ointment (Lanolin 100% Cream 7 Gm Tube) 0 gm TOP ASDIRECTED PRN PRN Reason: Sore Nipples Ferrous Sulfate (Ferrous Sulfate 325 Mg Tab) 325 mg PO BIDMEALS [facility] Last Admin: 08/09/20 08:25 Dose: 325 mg Documented by: Oxytocin/Sodium Chloride (Oxytocin 30 Unit/500 Ml-Ns) 30 unit in 500 mls @ 2 mls/hr IV TITRATE [facility]; Protocol Last Titration: 08/07/20 18:45 Dose: 0 munits/min, 0 mls/hr Documented by: Lactated Ringer's (Ringers, Lactated) 1,000 mls @ 125 mls/hr IV ASDIRECTED [facility] Last Admin: 08/07/20 22:58 Dose: 125 mls/hr Documented by: Oxytocin/Lactated Ringer's (Pitocin In Lr 30 Units/500 Ml) 30 unit in 500 mls @ 2 mls/hr IV TITRATE [facility]; Protocol Tranexamic Acid 1,000 mg/ (Sodium Chloride) 110 mls @ 660 mls/hr IV ONETIME PRN PRN Reason: Bleeding Ibuprofen (Ibuprofen 800 Mg Tab) 800 mg PO Q8H PRN PRN Reason: mild pain or fever Methylergonovine Maleate (Methylergonovine 0.2 Mg/1 Ml Amp) 0.2 mg IM ONETIME PRN PRN Reason: Excessive Vaginal Bleeding Misoprostol (Misoprostol 25 Mcg (1/4 Of 100 Mcg) Tab) 25 mcg VAG ONETIME PRN PRN Reason: Cervical Ripening Misoprostol (Misoprostol 25 Mcg (1/4 Of 100 Mcg) Tab) 25 mcg VAG Q4H PRN PRN Reason: Cervical Ripening Last Admin: 08/07/20 05:52 Dose: 25 mcg Documented by: Misoprostol (Misoprostol 200 Mcg Tab) 1,000 mcg RECTAL ONETIME PRN PRN Reason: excessive bleeding Ondansetron HCl (Ondansetron 4 Mg/2 Ml Sdv) 4 mg IVPUSH Q4H PRN PRN Reason: Nausea/Vomiting Oxycodone/Acetaminophen (Acetaminophen/Oxycodone 325-5 Mg Tab) 1 tab PO Q4H PRN PRN Reason: Pain (moderate 4-6) Oxycodone/Acetaminophen (Acetaminophen/Oxycodone 325-5 Mg Tab) 2 tab PO Q4H PRN PRN Reason: Pain (moderate 4-6) Last Admin: 08/09/20 04:43 Dose: 2 tab Documented by: Oxytocin (Oxytocin 10 Units/1 Ml Sdv) 10 unit IM ASDIRECTED PRN PRN Reason: Excessive Vaginal Bleeding Terbutaline Sulfate (Terbutaline 1 Mg/Ml Sdv) 0.25 mg SUBCUT ASDIRECTED PRN PRN Reason: Tacysystole Discontinued Medications Bupivacaine HCl (Bupivacaine 0.25% 10 Ml Sdv) Confirm Administered Dose 10 ml .ROUTE .STK-MED ONE Stop: 08/07/20 08:56 Cefazolin Sodium (Cefazolin 1 Gm Vial) Confirm Administered Dose 1 gm .ROUTE .STK-MED ONE Stop: 08/07/20 19:53 Citric Acid/Sodium Citrate (Citric Acid/Sodium Citrate Solution 30 Ml Cup) Confirm Administered Dose 30 ml .ROUTE .ST-MED ONE Stop: 08/07/20 19:21 Last Admin: 08/07/20 19:26 Dose: 30 ml Documented by: Fentanyl (Fentanyl 100 Mcg/2 Ml Sdv) Confirm Administered Dose 100 mcg .ROUTE .ST-MED ONE Stop: 08/07/20 08:54 Fentanyl (Fentanyl 250 Mcg/5 Ml Sdv) Confirm Administered Dose 250 mcg .ROUTE .ST-MED ONE Stop: 08/07/20 20:40 Lactated Ringer's (Ringers, Lactated) 1,000 mls @ 150 mls/hr IV ASDIRECTED [facility] Last Admin: 08/07/20 17:36 Dose: 150 mls/hr Documented by: Ropivacaine (Naropin 0.2%) Confirm Administered Dose 100 mls @ as directed .ROUTE .ST-MED ONE Stop: 08/07/20 08:55 Sodium Chloride (Normal Saline) Confirm Administered Dose 20 mls @ as directed .ROUTE .ST-MED ONE Stop: 08/07/20 19:53 Cefazolin Sodium/Dextrose (Ancef 2 Gm/50 Ml) Confirm Administered Dose 50 mls @ as directed .ROUTE .STK-MED ONE Stop: 08/07/20 19:53 Ampicillin Sodium/Sulbactam (Sodium 3 gm/ Sodium Chloride) 100 mls @ 200 mls/hr IV Q8H [facility] Stop: 08/08/20 13:59 Last Admin: 08/08/20 06:03 Dose: 200 mls/hr Documented by: Ampicillin Sodium/Sulbactam (Sodium 3 gm/ Sodium Chloride) 100 mls @ 200 mls/hr IV Q8H [facility] Stop: 08/08/20 22:59 Last Admin: 08/08/20 23:25 Dose: 200 mls/hr Documented by: Sodium Chloride (Normal Saline) Confirm Administered Dose 100 mls @ as directed .ROUTE .STK-MED ONE Stop: 08/08/20 13:54 Iron Sucrose 200 mg/ Sodium (Chloride) 110 mls @ 400 mls/hr IV ONETIME ONE Stop: 08/08/20 20:21 Last Admin: 08/08/20 21:50 Dose: 400 mls/hr Documented by: Ketorolac Tromethamine (Ketorolac 30 Mg/Ml Sdv) 30 mg IVPUSH Q6H [facility] Stop: 08/08/20 21:31 Lidocaine/Epinephrine (Lidocaine 2% With Epinephrine 1:200,000 20 Ml Sdv) Confirm Administered Dose 20 ml .ROUTE .STK-MED ONE Stop: 08/07/20 19:17 Midazolam HCl (Midazolam 1 Mg/Ml 2 Ml Sdv) Confirm Administered Dose 2 mg .ROUTE .STK-MED ONE Stop: 08/07/20 20:41 Morphine Sulfate (Morphine Pf 10 Mg/10 Ml Sdv) Confirm Administered Dose 10 mg .ROUTE .STK-MED ONE Stop: 08/07/20 19:19 Nalbuphine HCl (Nalbuphine 10 Mg/1 Ml Vial) 5 mg IVPUSH Q3H PRN PRN Reason: Pruritis Stop: 08/08/20 21:38 Last Admin: 08/08/20 11:38 Dose: 5 mg Documented by: Naloxone HCl (Naloxone 0.4 Mg/Ml Syringe) 0.1 mg IVPUSH ONETIME ONE Stop: 08/07/20 21:37 Naloxone HCl (Naloxone 0.4 Mg/Ml Syringe) 0.1 mg IVPUSH ONETIME PRN PRN Reason: Respiratory Depression Stop: 08/08/20 21:38 Ondansetron HCl (Ondansetron 4 Mg/2 Ml Sdv) 4 mg IVPUSH Q4H PRN PRN Reason: Nausea/Vomiting Last Admin: 08/07/20 10:31 Dose: 4 mg Documented by: Ondansetron HCl (Ondansetron 4 Mg/2 Ml Sdv) Confirm Administered Dose 4 mg .ROUTE .STK-MED ONE Stop: 08/07/20 19:21 Oxytocin (Oxytocin 10 Units/1 Ml Sdv) Confirm Administered Dose 20 unit .ROUTE .STK-MED ONE Stop: 08/07/20 19:30 Oxytocin (Oxytocin 10 Units/1 Ml Sdv) Confirm Administered Dose 10 unit .ROUTE .STK-MED ONE Stop: 08/07/20 20:35 Phenylephrine HCl (Phenylephrine 1% 10 Mg/Ml Sdv) Confirm Administered Dose 10 mg .ROUTE .STK-MED ONE Stop: 08/07/20 19:54 Tranexamic Acid (Tranexamic Acid 1,000 Mg/10 Ml Amp) Confirm Administered Dose 1,000 mg .ROUTE .STK-MED ONE Stop: 08/07/20 20:30 - Interaction Infant Disposition, : [place] in Room with Family Infant Interaction: Holding Infant Feeding: Breastfed ; Nursed Well Support Person: - Recovery Exam Fundal Tone: Firm Fundal Level: 1 Fingerbreadths Below Umbilicus Fundal Placement: Midline Lochia Amount: Scant Lochia Color: Rubra/Red Perineum Description: Intact, Minimal Bruising/Swelling Episiotomy/Laceration: None Bladder Status: Voiding Urinary Elimination: Indwelling Catheter - Exam Quality Assessment: DVT Prophylaxis General: Alert, Oriented HEENT: Mucous Membr. Moist/Seba [place]. No: Scleral Icterus Lungs: Normal Respiratory Effort GI/Abdominal Exam: Soft, Non-Tender, No Distention Extremities: Normal Inspection, Non-Tender. No: No Pedal Edema (1+ equal bilaterally) Skin: Warm, Dry, Intact Wound/Incisions: Dressing Dry and Intact Neurological: No New Focal Deficit Psy/Mental Status: Alert, Normal Affect, Normal Mood - Problem List & Annotations (1) Acute blood loss anemia SNOMED Code(s): 688594304 Code(s): D62 - ACUTE POSTHEMORRHAGIC ANEMIA Status: Acute Current Visit: Yes (2) delivery delivered SNOMED Code(s): 298117989 Code(s): O82 - ENCOUNTER FOR DELIVERY WITHOUT INDICATION Status: Acute Current Visit: Yes - Problem List Review Problem List Initiated/Reviewed/Updated: Yes - My Orders Last 24 Hours: My Active Orders 08/09/20 09:54 Transfuse Red Blood Cells [COMM] Routine 08/09/20 09:55 Verify Patient Consent Obtain [RC] ASDIRECTED 08/09/20 09:57 diphenhydrAMINE [Benadryl] 50 mg PO ONETIME ONE 08/10/20 05:00 HEMOGLOBIN/HEMATOCRIT,HH [HEME] Routine - Assessment Assessment:: 34yo P3 s/p Primary for arrest of dilation, anemia secondary to blood loss symptomatic , POD 2 Rubella Immune , Normal Lochia - Plan Plan:: Discussed blood transfusion and she is significantly symptomatic with dizziness and seeing spots in her vision while ambulating. Blood count today is lower, despite IV iron. She states she feels the same as when she required transfusion after D&C for miscarriage. She was offered another dose of IV iron, followed by oral iron at home, versus proceeding with transfusion with risks discussed including transfusion reaction, infectious diseases and antibody development. Understanding these risks, she would like to proceed with transfusion of 2 Units PRBC, recheck labs in am, and anticipate home in am.
[2020-08-10] MEDS: Ibuprofen 800 MG Tab PO PRN ×2 (02:08→10:43)
[2020-08-10] MEDS: Ferrous Sulfate 325 MG Tab PO SCH (08:03)
[2020-08-10] MEDS: Acetaminophen/oxyCODONE 325-5 MG Tab PO PRN (08:03)
[2020-08-10] MEDS: Docusate Sodium 100 MG Cap PO SCH (08:03)
--- NOTE | 2020-08-10 11:00 | PCM.PNPP ---
- General Info Date of Service: 08/10/20 Admission Dx/Problem (Free Text): Feeling much better today after transfusion. She is ambulating without dizziness and her energy is better. Pain was much improved until bowel movement this am, but she is now feeling better. Functional Status: Reports: Pain Controlled, Tolerating Diet, Ambulating - Review of Systems General: Reports: No Symptoms HEENT: Reports: No Symptoms Pulmonary: Reports: No Symptoms Cardiovascular: Reports: No Symptoms Gastrointestinal: Reports: No Symptoms Genitourinary: Reports: No Symptoms Musculoskeletal: Reports: No Symptoms Skin: Reports: No Symptoms Neurological: Reports: No Symptoms Psychiatric: Reports: No Symptoms - General Info Date of Service: 08/10/20 - Patient Data Vital Signs - Most Recent: Last Vital Signs Temp 35.8 C L 08/10/20 04:45 Pulse 83 08/10/20 04:45 Resp 16 08/10/20 04:45 BP 121/78 08/10/20 04:45 Pulse Ox 96 08/10/20 04:45 Weight - Most Recent: 113.58 kg I&O - Last 24 Hours: Intake & Output 08/09/20 08/10/20 08/10/20 22:59 06:59 14:59 Intake Total 375 Balance 375 Lab Results - Last 24 Hours: Laboratory Results - last 24 hr 08/07/20 08/07/20 08/10/20 Range/Units 01:10 01:10 06:25 Hgb 9.8 L (12.0-16.0) g/dL Hct 29.0 L (36.0-46.0) % RPR Non-Reac (Non-Reac) Blood Type O POSITIVE Antibody Screen NEGATIVE Crossmatch See Detail Med Orders - Current: Current Medications Bisacodyl (Bisacodyl 10 Mg Supp) 10 mg RECTAL ONETIME PRN PRN Reason: Constipation Last Admin: 08/10/20 08:06 Dose: 10 mg Documented by: Diphenhydramine HCl (Diphenhydramine 50 Mg/Ml Sdv) 25 mg IVPUSH Q6H PRN PRN Reason: Itching or Nausea Docusate Sodium (Docusate Sodium 100 Mg Cap) 100 mg PO BID SUNITHA Last Admin: 08/10/20 08:03 Dose: 100 mg Documented by: Emollient Ointment (Lanolin 100% Cream 7 Gm Tube) 0 gm TOP ASDIRECTED PRN PRN Reason: Sore Nipples Ferrous Sulfate (Ferrous Sulfate 325 Mg Tab) 325 mg PO BIDMEALS [facility] Last Admin: 08/10/20 08:03 Dose: 325 mg Documented by: Oxytocin/Sodium Chloride (Oxytocin 30 Unit/500 Ml-Ns) 30 unit in 500 mls @ 2 mls/hr IV TITRATE SUNITHA; Protocol Last Titration: 08/07/20 18:45 Dose: 0 munits/min, 0 mls/hr Documented by: Lactated Ringer's (Ringers, Lactated) 1,000 mls @ 125 mls/hr IV ASDIRECTED SUNITHA Last Admin: 08/07/20 22:58 Dose: 125 mls/hr Documented by: Oxytocin/Lactated Ringer's (Pitocin In Lr 30 Units/500 Ml) 30 unit in 500 mls @ 2 mls/hr IV TITRATE SUNITHA; Protocol Tranexamic Acid 1,000 mg/ (Sodium Chloride) 110 mls @ 660 mls/hr IV ONETIME PRN PRN Reason: Bleeding Ibuprofen (Ibuprofen 800 Mg Tab) 800 mg PO Q8H PRN PRN Reason: mild pain or fever Last Admin: 08/10/20 10:43 Dose: 800 mg Documented by: Methylergonovine Maleate (Methylergonovine 0.2 Mg/1 Ml Amp) 0.2 mg IM ONETIME PRN PRN Reason: Excessive Vaginal Bleeding Misoprostol (Misoprostol 25 Mcg (1/4 Of 100 Mcg) Tab) 25 mcg VAG ONETIME PRN PRN Reason: Cervical Ripening Misoprostol (Misoprostol 25 Mcg (1/4 Of 100 Mcg) Tab) 25 mcg VAG Q4H PRN PRN Reason: Cervical Ripening Last Admin: 08/07/20 05:52 Dose: 25 mcg Documented by: Misoprostol (Misoprostol 200 Mcg Tab) 1,000 mcg RECTAL ONETIME PRN PRN Reason: excessive bleeding Ondansetron HCl (Ondansetron 4 Mg/2 Ml Sdv) 4 mg IVPUSH Q4H PRN PRN Reason: Nausea/Vomiting Oxycodone/Acetaminophen (Acetaminophen/Oxycodone 325-5 Mg Tab) 1 tab PO Q4H PRN PRN Reason: Pain (moderate 4-6) Last Admin: 08/10/20 08:03 Dose: 1 tab Documented by: Oxycodone/Acetaminophen (Acetaminophen/Oxycodone 325-5 Mg Tab) 2 tab PO Q4H PRN PRN Reason: Pain (moderate 4-6) Last Admin: 08/09/20 21:26 Dose: 2 tab Documented by: Oxytocin (Oxytocin 10 Units/1 Ml Sdv) 10 unit IM ASDIRECTED PRN PRN Reason: Excessive Vaginal Bleeding Terbutaline Sulfate (Terbutaline 1 Mg/Ml Sdv) 0.25 mg SUBCUT ASDIRECTED PRN PRN Reason: Tacysystole Discontinued Medications Bupivacaine HCl (Bupivacaine 0.25% 10 Ml Sdv) Confirm Administered Dose 10 ml .ROUTE .STK-MED ONE Stop: 08/07/20 08:56 Cefazolin Sodium (Cefazolin 1 Gm Vial) Confirm Administered Dose 1 gm .ROUTE .STK-MED ONE Stop: 08/07/20 19:53 Citric Acid/Sodium Citrate (Citric Acid/Sodium Citrate Solution 30 Ml Cup) Conf irm Administered Dose 30 ml .ROUTE .STK-MED ONE Stop: 08/07/20 19:21 Last Admin: 08/07/20 19:26 Dose: 30 ml Documented by: Diphenhydramine HCl (Diphenhydramine 50 Mg Cap) 50 mg PO ONETIME ONE Stop: 08/09/20 09:58 Last Admin: 08/09/20 11:23 Dose: 50 mg Documented by: Fentanyl (Fentanyl 100 Mcg/2 Ml Sdv) Confirm Administered Dose 100 mcg .ROUTE .STK-MED ONE Stop: 08/07/20 08:54 Fentanyl (Fentanyl 250 Mcg/5 Ml Sdv) Confirm Administered Dose 250 mcg .ROUTE .STK-MED ONE Stop: 08/07/20 20:40 Lactated Ringer's (Ringers, Lactated) 1,000 mls @ 150 mls/hr IV ASDIRECTED SUNITHA Last Admin: 08/07/20 17:36 Dose: 150 mls/hr Documented by: Ropivacaine (Naropin 0.2%) Confirm Administered Dose 100 mls @ as directed .ROUTE .STK-MED ONE Stop: 08/07/20 08:55 Sodium Chloride (Normal Saline) Confirm Administered Dose 20 mls @ as directed .ROUTE .STK-MED ONE Stop: 08/07/20 19:53 Cefazolin Sodium/Dextrose (Ancef 2 Gm/50 Ml) Confirm Administered Dose 50 mls @ as directed .ROUTE .STK-MED ONE Stop: 08/07/20 19:53 Ampicillin Sodium/Sulbactam (Sodium 3 gm/ Sodium Chloride) 100 mls @ 200 mls/hr IV Q8H [facility] Stop: 08/08/20 13:59 Last Admin: 08/08/20 06:03 Dose: 200 mls/hr Documented by: Ampicillin Sodium/Sulbactam (Sodium 3 gm/ Sodium Chloride) 100 mls @ 200 mls/hr IV Q8H [facility] Stop: 08/08/20 22:59 Last Admin: 08/08/20 23:25 Dose: 200 mls/hr Documented by: Sodium Chloride (Normal Saline) Confirm Administered Dose 100 mls @ as directed .ROUTE .STK-MED ONE Stop: 08/08/20 13:54 Iron Sucrose 200 mg/ Sodium (Chloride) 110 mls @ 400 mls/hr IV ONETIME ONE Stop: 08/08/20 20:21 Last Admin: 08/08/20 21:50 Dose: 400 mls/hr Documented by: Ketorolac Tromethamine (Ketorolac 30 Mg/Ml Sdv) 30 mg IVPUSH Q6H [facility] Stop: 08/08/20 21:31 Lidocaine/Epinephrine (Lidocaine 2% With Epinephrine 1:200,000 20 Ml Sdv) Confirm Administered Dose 20 ml .ROUTE .STK-MED ONE Stop: 08/07/20 19:17 Midazolam HCl (Midazolam 1 Mg/Ml 2 Ml Sdv) Confirm Administered Dose 2 mg .ROUTE .STK-MED ONE Stop: 08/07/20 20:41 Morphine Sulfate (Morphine Pf 10 Mg/10 Ml Sdv) Confirm Administered Dose 10 mg .ROUTE .STK-MED ONE Stop: 08/07/20 19:19 Nalbuphine HCl (Nalbuphine 10 Mg/1 Ml Vial) 5 mg IVPUSH Q3H PRN PRN Reason: Pruritis Stop: 08/08/20 21:38 Last Admin: 08/08/20 11:38 Dose: 5 mg Documented by: Naloxone HCl (Naloxone 0.4 Mg/Ml Syringe) 0.1 mg IVPUSH ONETIME ONE Stop: 08/07/20 21:37 Naloxone HCl (Naloxone 0.4 Mg/Ml Syringe) 0.1 mg IVPUSH ONETIME PRN PRN Reason: Respiratory Depression Stop: 08/08/20 21:38 Ondansetron HCl (Ondansetron 4 Mg/2 Ml Sdv) 4 mg IVPUSH Q4H PRN PRN Reason: Nausea/Vomiting Last Admin: 08/07/20 10:31 Dose: 4 mg Documented by: Ondansetron HCl (Ondansetron 4 Mg/2 Ml Sdv) Confirm Administered Dose 4 mg .ROUTE .STK-MED ONE Stop: 08/07/20 19:21 Oxytocin (Oxytocin 10 Units/1 Ml Sdv) Confirm Administered Dose 20 unit .ROUTE .STK-MED ONE Stop: 08/07/20 19:30 Oxytocin (Oxytocin 10 Units/1 Ml Sdv) Confirm Administered Dose 10 unit .ROUTE .STK-MED ONE Stop: 08/07/20 20:35 Phenylephrine HCl (Phenylephrine 1% 10 Mg/Ml Sdv) Confirm Administered Dose 10 mg .ROUTE .STK-MED ONE Stop: 08/07/20 19:54 Tranexamic Acid (Tranexamic Acid 1,000 Mg/10 Ml Amp) Confirm Administered Dose 1,000 mg .ROUTE .STK-MED ONE Stop: 08/07/20 20:30 - Infant Interaction Infant Disposition, : in Room with Family Infant Interaction: Holding Infant Infant Feeding: Breastfed ; Nursed Well Support Person: - Recovery Exam Fundal Tone: Firm Fundal Level: 1 Fingerbreadths Below Umbilicus Fundal Placement: Midline Lochia Amount: Scant Lochia Color: Rubra/Red Perineum Description: Intact, Minimal Bruising/Swelling Episiotomy/Laceration: None Bladder Status: Voiding Urinary Elimination: Voided - Exam General: Alert, Oriented Neck: Supple Lungs: Normal Respiratory Effort GI/Abdominal Exam: Soft, Non-Tender, No Distention Extremities: Non-Tender, No Pedal Edema Skin: Warm, Dry, Intact Wound/Incisions: Dressing Dry and Intact Neurological: No New Focal Deficit Psy/Mental Status: Alert, Normal Affect, Normal Mood - Problem List & Annotations (1) Acute blood loss anemia SNOMED Code(s): 813694101 Code(s): D62 - ACUTE POSTHEMORRHAGIC ANEMIA Status: Acute Current Visit: Yes (2) delivery delivered SNOMED Code(s): 926717015 Code(s): O82 - ENCOUNTER FOR DELIVERY WITHOUT INDICATION Status: Acute Current Visit: Yes - Problem List Review Problem List Initiated/Reviewed/Updated: Yes - My Orders Last 24 Hours: My Active Orders 08/10/20 10:40 Ready for Discharge [RC] PER UNIT ROUTINE - Assessment Assessment:: 34yo P3 s/p Primary for arrest of dilation, anemia secondary to blood loss symptomatic , POD 3 S/P transfusion, mild anemia, asymptomatic Afebrile since delivery Discharge instructions reviewed, dismiss to home today.
[2020-08-10] MEDS ORDERED: Benzocaine/Menthol 20%-0.5% Spray 78 GM Cannister TOP PRN (14:55)
[2020-08-10] MEDS ORDERED: Witch Hazel Medicated Pads 40/Jar TOP PRN (14:55)
== END 2020-08-10 16:12 | disposition home or self-care (01) | DRG 540 ==
LOC: MW.OB 00:02 → OBSVTOIN 21:27 → MW.OB 21:27
PROVIDERS: ADMIT Obstetrics & Gynecology; ATTEND Obstetrics & Gynecology
PROC: 10D00Z1 Extraction of Products of Conception, Low, Open Approach (ICD-10-PCS; principal; 2020-08-07)
PROC: 10907ZC Drainage of Amniotic Fluid, Therapeutic from Products of Conception, Via Natural or Artificial Opening (ICD-10-PCS; 2020-08-07)
PROC: 3E0P7VZ Introduction of Hormone into Female Reproductive, Via Natural or Artificial Opening (ICD-10-PCS; 2020-08-07)
PROC: 3E033VJ Introduction of Other Hormone into Peripheral Vein, Percutaneous Approach (ICD-10-PCS; 2020-08-07)
PROC: 30233N1 Transfusion of Nonautologous Red Blood Cells into Peripheral Vein, Percutaneous Approach (ICD-10-PCS; 2020-08-09)
DX: O48.0 Post-term pregnancy (principal); Z37.0 Single live birth; O99.02 Anemia complicating childbirth; D62 Acute posthemorrhagic anemia; O72.1 Other immediate postpartum hemorrhage; Z3A.40 40 weeks gestation of pregnancy
CPT/HCPCS: 36415; 36430; 51702; 59025; 82803; 85007; 85014; 85018; 85027; 86592; 86850; 86900; 86901; 86920; 86921; 86922; A9270-GY; J0295; J0690; J1756; J2250; J2270; J2300; J2370; J2405; J2590; J2795; J3010; J3490; J7120; P9016

== ENCOUNTER 2020-12-25 09:15 | Day surgery (SDC) | payer BC ==
[~2020-12-25 09:15] MED LIST: Lactated Ringers 1,000 ML IV SCH; Sodium Chloride 0.9% 10 ML SDV IV PRN; Sodium Chloride 0.9% 10 ML Syringe FLUSH PRN; Sodium Chloride 0.9% 2.5 ML Syringe FLUSH PRN; ceFAZolin 2 GM in Premix Bag 1 BAG IV ONE
[2020-12-25] MEDS ORDERED: Bupivacaine 0.5% 10 ML SDV ONE (09:20)
[2020-12-25] MEDS ORDERED: Bupivacaine 0.25% 10 ML SDV ONE (09:20)
--- NOTE | 2020-12-25 09:24 | PCM.PREANE ---
Preanesthetic Assessment - Anesthesia/Transfusion/Family Hx Anesthesia History: No Prior Anesthesia Transfusion History: No Prior Transfusion(s) Intubation History: Unknown - Review of Systems General: No Symptoms Pulmonary: No Symptoms Cardiovascular: No Symptoms Gastrointestinal: No Symptoms Neurological: No Symptoms Other: Reports: None - Physical Assessment NPO Status Date: 12/25/20 NPO Status Time: 00:00 Vital Signs: Last Vital Signs Temp 97.3 F 12/25/20 08:18 Pulse 78 12/25/20 08:18 Resp 16 12/25/20 08:18 BP 113/68 12/25/20 08:18 Pulse Ox 96 12/25/20 08:18 Height: 5 ft Weight: 241 lb ASA Class: 3 Mental Status: Alert & Oriented x3 Airway Class: Mallampati = 2 Dentition: Reports: Normal Dentition Thyro-Mental Finger Breadths: 3 Mouth Opening Finger Breadths: 3 ROM/Head Extension: Full Lungs: Clear to Auscultation, Normal Respiratory Effort Cardiovascular: Regular Rate, Regular Rhythm - Lab Values: Laboratory Last Values WBC 7.53 K/uL (4.0-11.0) 12/25/20 08:22 RBC 4.68 M/uL (4.30-5.90) 12/25/20 08:22 Hgb 13.5 g/dL (12.0-16.0) 12/25/20 08:22 Hct 39.6 % (36.0-46.0) 12/25/20 08:22 MCV 84.6 fL (80.0-98.0) 12/25/20 08:22 MCH 28.8 pg (27.0-32.0) 12/25/20 08:22 MCHC 34.1 g/dL (31.0-37.0) 12/25/20 08:22 RDW Std Deviation 43.3 fl (28.0-62.0) 12/25/20 08:22 RDW Coeff of Zachariah 14 % (11.0-15.0) 12/25/20 08:22 Plt Count 276 K/uL (150-400) 12/25/20 08:22 MPV 8.30 fL (7.40-12.00) 12/25/20 08:22 Neut % (Auto) 55.6 % (48.0-80.0) 12/25/20 08:22 Lymph % (Auto) 33.7 % (16.0-40.0) 12/25/20 08:22 [place] % (Auto) 7.4 % (0.0-15.0) 12/25/20 08:22 Eos % (Auto) 2.8 % (0.0-7.0) 12/25/20 08:22 Baso % (Auto) 0.5 % (0.0-1.5) 12/25/20 08:22 Neut # (Auto) 4.2 K/uL (1.4-5.7) 12/25/20 08:22 Lymph # (Auto) 2.5 K/uL (0.6-2.4) H 12/25/20 08:22 [place] # (Auto) 0.6 K/uL (0.0-0.8) 12/25/20 08:22 Eos # (Auto) 0.2 K/uL (0.0-0.7) 12/25/20 08:22 Baso # (Auto) 0.0 K/uL (0.0-0.1) 12/25/20 08:22 Nucleated RBC % 0.0 /100WBC 12/25/20 08:22 Nucleated RBCs # 0 K/uL 12/25/20 08:22 HCG, Qual NEGATIVE (NEG) 12/25/20 08:22 - Allergies Allergies/Adverse Reactions: Allergies Allergy/AdvReac Type Severity Reaction Status Date / Time cat dander Allergy Itching Verified 12/19/20 10:00 seasonal Allergy Mild Wheezing Uncoded 08/07/20 00:19 - Acknowledgements Anesthesia Type Planned: General Anesthesia Pt an Appropriate Candidate for the Planned Anesthesia: Yes Alternatives and Risks of Anesthesia Discussed w Pt/Guardian: Yes Pt/Guardian Understands and Agrees with Anesthesia Plan: Yes PreAnesthesia Questionnaire - Past Health History Medical/Surgical History: Denies Medical/Surgical History HEENT History: Reports: Other (See Below) Other HEENT History: has permanent lower dental retainer and uses an upper morena monse dental retainer at night Cardiovascular History: Reports: None Respiratory History: Reports: Asthma Other Respiratory History: flares in the winter and if she has a cold Gastrointestinal History: Reports: Cholelithiasis, Other (See Below) Other Gastrointestinal History: heartburn during Genitourinary History: Reports: None 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 OB/BYN History: ovarian cyst Musculoskeletal History: Reports: None Neurological History: Reports: Head Trauma Other Neuro History: stitches on her scalp due to fall as a child Psychiatric History: Reports: Anxiety Other Psychiatric History: in the past- no medications Endocrine/Metabolic History: Reports: Obesity/BMI 30+ Hematologic History: Reports: Blood Transfusion(s) Other Hematologic History: has blood transfusions after D&C Immunologic History: Reports: None Oncologic (Cancer) History: Reports: None Dermatologic History: Reports: None - Infectious Disease History Infectious Disease History: Reports: Chicken Pox - Past Surgical History Head Surgeries/Procedures: Reports: None Cardiovascular Surgical History: Reports: None Respiratory Surgical History: Reports: None GI Surgical History: Reports: None Female Surgical History: Reports: Section, D&C Endocrine Surgical History: Reports: None Neurological Surgical History: Reports: None Musculoskeletal Surgical History: Reports: None Oncologic Surgical History: Reports: None Dermatological Surgical History: Reports: None - SUBSTANCE USE Tobacco Use Status *Q: Never Tobacco User Recreational Drug Use History: No - HOME MEDS Home Medications: Home Meds Pnv No.95/Ferrous Fum/Folic AC [ Vitamin Tablet] 1 tab PO DAILY 01/17/18 [History] Albuterol [Proventil Neb Soln] 1 vial INH Q4H PRN 12/19/20 [History] Calcium/Vits D3/C/K2/Minerals [Bone Essentials Capsule] 3 cap PO DAILY 12/19/20 [History] Cholecalciferol (Vitamin D3) [Vitamin D3] 2,000 unit PO DAILY 12/19/20 [History] Fexofenadine HCl [Natty Allergy] 180 mg PO DAILY 12/19/20 [History] Fish Oil/Celina-3 Fatty Acids [Fish Oil 1,000 MG] 1,000 mg PO BID 12/19/20 [History] Fluticasone Propionate [Flovent HFA] 2 puff INH BID 12/19/20 [History] Iron,Carb/Vit C/Vit B12/Folic [Iron 100 Plus Tablet] 143 mg PO DAILY 12/19/20 [History] - CURRENT (IN HOUSE) MEDS Current Meds: Current Medications Lactated Ringer's (Ringers, Lactated) 1,000 mls @ 125 mls/hr IV ASDIRECTED SUNITHA Sodium Chloride (Sodium Chloride 0.9% 10 Ml Syringe) 10 ml FLUSH ASDIRECTED PRN PRN Reason: Keep Vein Open Sodium Chloride (Sodium Chloride 0.9% 2.5 Ml Syringe) 2.5 ml FLUSH ASDIRECTED PRN PRN Reason: Keep Vein Open Sodium Chloride (Sodium Chloride 0.9% 10 Ml Sdv) 10 ml IV ASDIRECTED PRN PRN Reason: IV Use Discontinued Medications Bupivacaine HCl (Bupivacaine 0.5% 10 Ml Sdv) Confirm Administered Dose 30 ml .ROUTE .STK-MED ONE Stop: 12/25/20 09:21 Bupivacaine HCl (Bupivacaine 0.25% 10 Ml Sdv) Confirm Administered Dose 10 ml .ROUTE .STK-MED ONE Stop: 12/25/20 09:21 Cefazolin Sodium/Dextrose 2 gm (/ Premix) 50 mls @ 100 mls/hr IV ONETIME ONE Stop: 12/25/20 08:22
[2020-12-25] MEDS ORDERED: Morphine 2 MG/ML SYRINGE IVPUSH PRN (09:25)
[2020-12-25] MEDS ORDERED: Ondansetron 4 MG/2 ML SDV IVPUSH PRN (09:25)
[2020-12-25] MEDS ORDERED: Albuterol 0.083% 2.5 MG/3 ML Neb Soln NEB PRN (09:25)
[2020-12-25] MEDS ORDERED: fentaNYL 100 MCG/2 ML SDV IVPUSH PRN (09:25)
[2020-12-25] MEDS ORDERED: Naloxone 0.4 MG/ML Syringe IVPUSH PRN (09:25)
[2020-12-25] MEDS ORDERED: HYDROmorphone 1 MG/ML Syringe IVPUSH PRN (09:25)
[2020-12-25] MEDS ORDERED: Metoclopramide 10 MG/2 ML SDV IVPUSH PRN (09:25)
[2020-12-25] MEDS ORDERED: fentaNYL 250 MCG/5 ML SDV ONE ×2 (11:12→11:49)
[2020-12-25] MEDS ORDERED: Sugammadex Sodium 200 MG/2 ML VIAL ONE (13:33)
[2020-12-25] MEDS ORDERED: Ondansetron 4 MG/2 ML SDV ONE (13:33)
[2020-12-25] MEDS ORDERED: Ketorolac 30 MG/ML SDV ONE (13:33)
[2020-12-25] MEDS ORDERED: HYDROmorphone 2 MG/ML Syringe ONE (13:36)
--- NOTE | 2020-12-25 13:57 | PCM.OPNOTE ---
- General Post-Op/Procedure Note Date of Surgery/Procedure: 12/25/20 Operative Procedure(s): Laparoscopic cholecystectomy, open umbilical hernia repair Findings: 1.5 cm umbilical hernia containing omentum, chronically inflamed appearing gallbladder containing stone Pre Op Diagnosis: Cholelithiasis, umbilical hernia Post-Op Diagnosis: same Anesthesia Technique: General ET Tube Primary Surgeon: Martha Truong Secondary Surgeon: Gina Patel Pathology: gallbladder, hernia sac Fluid Replacement, Intraop: 3,000 Output, Urine Amount: 200 EBL in mLs: 10 Condition: Good
--- NOTE | 2020-12-25 14:18 | PCM.POSTAN ---
POST ANESTHESIA ASSESSMENT - MENTAL STATUS Mental Status: Somnolent - VITAL SIGNS Vital Signs: Last Vital Signs Temp 36.3 C 12/25/20 08:18 Pulse 78 12/25/20 08:18 Resp 16 12/25/20 08:18 BP 113/68 12/25/20 08:18 Pulse Ox 96 12/25/20 08:18 - RESPIRATORY Respiratory Status: Respiratory Rate WNL, Airway Patent, O2 Saturation Stable, Supplemental Oxygen - CARDIOVASCULAR CV Status: Pulse Rate WNL - GASTROINTESTINAL GI Status: No Symptoms - PAIN Pain Score: 0 - POST OP HYDRATION Hydration Status: Adequate & Stable - OBSERVATIONS Free Text/Narrative:: Patient awakens easily when name is called yet returns to sleep. VSS and Sats 100% on 10L Mask in PACU.
--- NOTE | 2020-12-25 14:48 | PCM48HPAN ---
Post Anesthesia Note - EVALUATION WITHIN 48HRS OF ANESTHETIC Vital Signs in Normal Range: Yes Patient Participated in Evaluation: Yes Respiratory Function Stable: Yes (95% on 2L NC) Airway Patent: Yes Cardiovascular Function Stable: Yes Hydration Status Stable: Yes Pain Control Satisfactory: Yes Nausea and Vomiting Control Satisfactory: Yes Mental Status Recovered: Yes Vital Signs: Last Vital Signs Temp 36.3 C 12/25/20 08:18 Pulse 76 12/25/20 14:42 Resp 11 L 12/25/20 14:42 BP 109/62 12/25/20 14:42 Pulse Ox 98 12/25/20 14:42 - COMMENTS/OBSERVATIONS Free Text/Narrative:: Patient is awake dozing at times and requesting something to drink and eat.
--- NOTE | 2020-12-25 18:20 | PCM.OPNOTE ---
- General Post-Op/Procedure Note Date of Surgery/Procedure: 12/25/20 Operative Procedure(s): Laparoscopic left ovarian cystectomy Findings: Normal appearing anteverted uterus Normal appearing cervix Normal Right ovary with small with 1cm physiologically cyst Left ovary with 3-4cm dermoid cyst ( contained hair and sebum ) Normal appearing bilateral tubes No lower abdominal adhesion at site Pre Op Diagnosis: Umbilical hernia. Bilateral ovarian cyst Post-Op Diagnosis: same Anesthesia Technique: General ET Tube Primary Surgeon: Gina Patel Secondary Surgeon: Martha Trunog Pathology: Cyst content and cyst wall Fluid Replacement, Intraop: 3,000 Output, Urine Amount: 200 EBL in mLs: 10 Complications: None Condition: Good Free Text/Narrative:: Intake & Output 12/25/20 12/25/20 12/25/20 06:59 14:59 22:59 Intake Total 6200 Output Total 600 Balance 5600
--- NOTE | 2020-12-25 20:32 | OR ---
SURGEON: MARTHA HAYES MD DATE OF PROCEDURE: 12/25/2020 PREOPERATIVE DIAGNOSES: 1. Cholelithiasis. 2. Umbilical hernia. 3. Bilateral cysts. POSTOPERATIVE DIAGNOSES: 1. Chronic cholecystitis secondary to cholelithiasis. 2. Umbilical hernia, reducible. 3. Bilateral ovarian cysts. PROCEDURES PERFORMED: 1. Laparoscopic cholecystectomy. 2. Umbilical hernia repair. 3. Left ovarian cystectomy. PRIMARY SURGEON: Martha Hayes MD SECONDARY SURGEON: Gina Patel ANESTHESIA: General endotracheal anesthesia. FLUIDS: 3000 mL crystalloid. ESTIMATED BLOOD LOSS: 10 mL. URINE OUTPUT: 200 mL. FINDINGS: Chronically inflamed appearing gallbladder containing stone, 1.5 cm defect in the umbilicus. Umbilical hernia sac contained omentum, bilateral ovarian cysts, dermoid cyst removed from the left side. COMPLICATIONS: None. INDICATIONS: The patient is a 35-year-old female who [facility] of abdominal pain. A CT scan showed a fat-containing umbilical hernia as well as cholelithiasis and ovarian cysts. She was consented by Dr. Gina Patel for a bilateral ovarian cystectomy. I agreed to perform an umbilical hernia repair as well as a cholecystectomy, given that she had a large stone in her gallbladder on the CT scan. The patient and I discussed the procedure, expected perioperative course, and the risks. Dr. Treva Croft and I decided to operate at the same time. She verbalized understanding and wishes to proceed. PROCEDURE IN DETAIL: The patient was brought in to the OR and placed on the OR table in lithotomy position. A time-out was completed verifying the patient's name, age, date of , allergies, and procedure to be performed. General endotracheal anesthesia was induced. The patient was appropriately padded and secured to the bed. Her legs were put in the stirrups and care was taken to appropriately pad her legs. Dr. Patel placed an uterine manipulator at the beginning of the case. The abdomen was prepped and draped in usual standard fashion. To start the case, I turned my attention to the umbilicus. I anesthetized the umbilical area with 0.5% Marcaine plain. A 15 blade was used to make an incision along the left lateral umbilical fold. Cautery was used to dissect down to the level of subcutaneous fat. I immediately encountered a hernia sac. Using a Metzenbaum scissors and blunt dissection, I dissected the hernia sac free from the surrounding subcutaneous fat down to the level of the fascia. I then grasped the umbilical skin and using a Metzenbaum scissors, excised the hernia sac from the underlying umbilical skin. I entered the hernia sac. The hernia sac contained omentum. I first dissected the outside of the hernia sac free from the surrounding tissue. I then dissected the omentum inside the hernia sac off the hernia sac so that it could be reduced back into the abdomen. It was easily reduced back into the abdomen. The hernia sac and fascial defect were inspected. The fascial defect measured 1.5 cm in size. A 12 mm Linda trocar was brought into the field. It was inserted into the abdomen, and the abdomen was insufflated. The legs were then brought together at the lower part of the table to put the patient in a bent-knee position. She was then placed into a gentle reverse Trendelenburg position. She was airplaned slightly to the left. 5 mm trocars were placed in the following locations under direct visualization; one in the epigastric area, one in the right flank, and one 2 fingerbreadths below the right subcostal margin in the midclavicular line. The dome of the gallbladder was grasped and elevated. There were some wispy adhesions of the gallbladder to the surrounding omentum. These were taken down using hook cautery and blunt dissection. I then grasped the infundibulum and began dissection along the proximal half of the gallbladder. Using a combination of blunt dissection and hook cautery, I cleared away the fat surrounding the cystic duct and artery. I then cleared the cystic plate one-third of the way up. The surrounding tissue did appear chronically inflamed. A photograph was taken of the critical view. I doubly clipped and ligated the cystic duct and artery. There was a small branch behind the arterial structure. This was doubly clipped and ligated as well. I then carried my dissection up the cystic plate using hook cautery. Once the gallbladder was removed from the cystic plate, it was placed in an EndoCatch bag and removed through the 12 mm port site at the umbilicus. The 12 mm Linda trocar was replaced and I inspected my operative field. I irrigated the area with normal saline and suctioned this out. A photograph was then taken. The area appeared hemostatic and there was no evidence of bile leakage. The case was then turned over to Dr. Patel. Please see her operative report for further details. At the end of Dr. Treva Croft's case, I took the case back over. The 5 mm trocars were all removed under direct visualization allowing the abdomen to desufflate. The 12 mm trocar was removed as well. I then resected the hernia sac free of the surrounding fascia using a Harmonic scalpel device. It was then sent to Pathology labeled as hernia sac. I then closed the fascia with interrupted 0 Ethibond sutures. The umbilical skin was then tied down to the fascia using subcutaneous interrupted 3-0 Vicryl sutures. I then closed the subcutaneous fat layer with interrupted 3-0 Vicryl sutures. The skin was then closed with a running 4-0 Monocryl stitch. All of the 5 mm trocar sites were closed with interrupted 4-0 Monocryl sutures. They were covered in Dermabond and sterile dressings. The umbilical site was covered with a sterile cotton ball and a larger Tegaderm. The patient tolerated the procedure well. All counts were complete and correct at the end of the case. She was extubated and taken to PACU in stable condition. FARHAN FIERRO /[id number]
--- NOTE | 2020-12-26 07:52 | OR ---
SURGEON: KEVIN BECERRIL DATE OF PROCEDURE: 12/25/2020 PREOPERATIVE DIAGNOSIS: A 35-year-old, para 3, with bilateral ovarian cysts. POSTOPERATIVE DIAGNOSES: 1. A 35-year-old, para 3, with bilateral ovarian cysts. 2. Left ovarian dermoid cyst. ANESTHESIA: General. CIVIL ENGINEERING PROJECT DESIGNER: Dr. Truong. NOTES AND FINDINGS: Normal-sized anteverted uterus. Normal-appearing right and left tubes. Right ovary with less than 1 cm cyst, appears physiologic. Left ovary with 3 to 4 cm dermoid cyst containing hair and sebum. ESTIMATED BLOOD LOSS: 10. IV FLUIDS: 3000. URINE OUTPUT: 200. PROCEDURE: Laparoscopic left ovarian cystectomy. BRIEF HISTORY ABOUT THE PATIENT: She is 35-year-old, para 3, who was for about four months, complaining of severe pain in the abdomen, sometimes in the lower abdomen and sometimes in the upper abdomen. She had a CAT scan done which showed an umbilical hernia with some fat omentum in the hernia sac. The CT scan also showed bilateral complex cysts. Ultrasound done showed a left complex mass and a right small cyst. As a result, the patient was counseled for a cystectomy in collaboration with a laparoscopic cystectomy and hernia repair. The patient had a preop consult with a general surgeon, who discussed care of plan. I discussed care plan of the cystectomy. She was explained the risks, benefits, and alternatives. She decided to proceed. DESCRIPTION OF PROCEDURE: The patient was taken to the operating room where general anesthesia was done without difficulty. She was prepared and draped in the dorsal lithotomy position with Randy stirrups. She had a uterine manipulator placed without difficulty. Then, the general surgeon started the case. See dictation as per general surgeon. After general surgeon was done with the removal of the gallbladder and the dissection of the hernia sac, two additional laparoscopic port was placed. One was placed 2 cm medial and superior to the anterior superior iliac spine and another was placed at the same spot but in the median, around the linea nigra. With the two ports being placed, the Harmonic was used to make a linear incision. As the linear incision was being made, there was rupture of the fluid that was noted, which was then sucked. The cyst was then opened up and carefully the cyst wall was dissected from the cortex of the ovary using the [place] and the atraumatic grasper. After this was done, because of the spillage the abdomen was then irrigated and lower pelvis was irrigated with about 3 L of fluid. All contents were removed from the abdomen and the pelvis. The prior to this, the cyst wall and cyst contents were removed via the EndoCatch bag. Then after irrigation, I scrubbed out for general surgeon to complete the case of closing the laparoscopic ports. After the patient's recovery, she should be taken to the recovery room in stable condition. LETI FIERRO /[id number]
== END 2020-12-25 17:16 | disposition home or self-care (01) ==
LOC: MW.SDS 09:15
PROVIDERS: ATTEND Obstetrics & Gynecology
DX: D27.1 Benign neoplasm of left ovary (principal); K80.10 Calculus of gallbladder with chronic cholecystitis without obstruction; K42.9 Umbilical hernia without obstruction or gangrene; J45.909 Unspecified asthma, uncomplicated; E66.01 Morbid (severe) obesity due to excess calories; Z68.42 Body mass index [BMI] 45.0-49.9, adult; Z86.16 Personal history of COVID-19
CPT/HCPCS: 36415; 47562; 49585; 58662; 84703; 85025; 88302; 88304; 88305; J1170; J1885; J2405; J3010; J3490; J7030; 00790

== ENCOUNTER 2022-06-21 20:38 | Emergency (ER) | payer BC ==
[2022-06-21] MEDS ORDERED: Bacitracin Oint 1 GM U/D Packet TOP ONE (21:51)
== END 2022-06-21 22:15 | disposition home or self-care (01) ==
LOC: MW.ED 20:38
DX: S68.012A Complete traumatic metacarpophalangeal amputation of left thumb, initial encounter (principal); J45.909 Unspecified asthma, uncomplicated; E66.9 Obesity, unspecified; Z91.09 Other allergy status, other than to drugs and biological substances; Z68.34 Body mass index [BMI] 34.0-34.9, adult; W26.0XXA Contact with knife, initial encounter
CPT/HCPCS: 99282; 99283

== ENCOUNTER 2022-09-28 06:18 | Day surgery (SDC) | payer BC ==
[2022-09-28] MEDS ORDERED: ceFAZolin 2 GM in Premix Bag 1 BAG IV ONE (06:20)
[2022-09-28] MEDS ORDERED: Scopolamine 1.5 MG Transdermal Patch TOP ONE (06:30)
[2022-09-28] MEDS: Lactated Ringers 1,000 ML IV SCH ×3 (06:45→21:29)
[2022-09-28 06:52] LABS: HEMATOCRIT 38.8 % (36.0-46.0); HEMOGLOBIN 13.4 g/dL (12.0-16.0); MEAN CORPUSCULAR HGB CONC 34.5 g/dL (31.0-37.0); PLATELET COUNT,PLT 404 K/uL (150-400); RED BLOOD CELL COUNT 4.46 M/uL (4.30-5.90); WHITE BLOOD CELL COUNT,WBC 7.39 K/uL (4.0-11.0)
[2022-09-28 07:07] LABS: CALCIUM 8.5 mg/dL (8.5-10.1); CARBON DIOXIDE,CO2 26.3 mmol/L (21.0-32.0); CREATININE 0.8 mg/dL (0.6-1.0); EST CRCL DRUG DOSING (CG) 69.83 mL/min; POTASSIUM,K 3.7 mmol/L (3.5-5.1)
[2022-09-28] MEDS ORDERED: Methylene Blue 1% 10 ML SDV ONE (07:33)
[2022-09-28] MEDS ORDERED: Ropivacaine 0.5% 5 MG/ML 30 ML SDV ONE (07:33)
[2022-09-28] MEDS ORDERED: Famotidine 20 MG/2 ML SDV ONE (07:33)
[2022-09-28] MEDS ORDERED: Bupivacaine 0.25% 30 ML SDV ONE (07:34)
[2022-09-28] MEDS ORDERED: Propofol 200 MG/20 ML SDV ONE ×3 (07:36→10:21)
[2022-09-28] MEDS ORDERED: Morphine Sulfate 10mg/ml SDV ONE (07:36)
[2022-09-28] MEDS ORDERED: fentaNYL 100 MCG/2 ML SDV ONE ×2 (07:36→08:42)
[2022-09-28] MEDS ORDERED: propofoL 50 ML ONE ×2 (07:36→09:01)
[2022-09-28] MEDS ORDERED: droPERidol 5 MG/2 ML SDV IVPUSH PRN (07:58)
[2022-09-28] MEDS ORDERED: Metoclopramide 10 MG/2 ML SDV IVPUSH PRN (07:58)
[2022-09-28] MEDS ORDERED: Ondansetron 4 MG/2 ML SDV IVPUSH PRN (07:58)
[2022-09-28] MEDS ORDERED: Naloxone 0.4 MG/ML SDV IVPUSH PRN (07:58)
[2022-09-28] MEDS ORDERED: Morphine 2 MG/ML SYRINGE IVPUSH PRN (07:58)
[2022-09-28] MEDS ORDERED: HYDROmorphone 1 MG/ML Syringe IVPUSH PRN (07:58)
[2022-09-28] MEDS ORDERED: Albuterol 0.083% 2.5 MG/3 ML Neb Soln NEB PRN (07:58)
[2022-09-28] MEDS ORDERED: fentaNYL 50 MCG/ML SDV IVPUSH PRN (07:58)
[2022-09-28] MEDS ORDERED: Glycopyrrolate 0.2 MG/ML SDV ONE (09:05)
[2022-09-28] MEDS ORDERED: Fluorescein 5 ML Vial ONE (09:54)
[2022-09-28] MEDS ORDERED: Sugammadex Sodium 200 MG/2 ML VIAL ONE (10:13)
[2022-09-28] MEDS ORDERED: Promethazine 25 MG/ML SDV IM PRN (11:04)
[2022-09-28] MEDS: Morphine 4 MG/ML Syringe IVPUSH PRN ×3 (13:47→21:34)
[2022-09-28] MEDS: Ketorolac 30 MG/ML SDV IVPUSH PRN (14:53)
[2022-09-28] MEDS: Ondansetron 4 MG/2 ML SDV IVPUSH PRN (16:11)
[2022-09-28] MEDS: Acetaminophen/oxyCODONE 325-5 MG Tab PO PRN (16:14)
[2022-09-29] MEDS: Acetaminophen/oxyCODONE 325-5 MG Tab PO PRN ×2 (02:19→12:03)
[2022-09-29] MEDS: Lactated Ringers 1,000 ML IV SCH ×3 (05:12→23:39)
[2022-09-29 05:59] LABS: BASOPHILS PERCENT AUTO 0.2 % (0.0-1.5); HEMATOCRIT 30.7 % (36.0-46.0); HEMOGLOBIN 10.5 g/dL (12.0-16.0); LYMPHOCYTES ABSOLUTE AUTO 2.2 K/uL (0.6-2.4); LYMPHOCYTES PERCENT AUTO 22.9 % (16.0-40.0); MEAN CORPUSCULAR HEMOGLOBIN 30.3 pg (27.0-32.0); MEAN CORPUSCULAR HGB CONC 34.2 g/dL (31.0-37.0); MEAN CORPUSCULAR VOLUME 88.7 fL (80.0-98.0); MONOCYTES ABSOLUTE AUTO 0.6 K/uL (0.0-0.8); MONOCYTES PERCENT AUTO 6.6 % (0.0-15.0); NEUTROPHILS ABSOLUTE AUTO 6.9 K/uL (1.4-5.7); NEUTROPHILS PERCENT AUTO 70.3 % (48.0-80.0); PLATELET COUNT,PLT 382 K/uL (150-400); RED BLOOD CELL COUNT 3.46 M/uL (4.30-5.90); WHITE BLOOD CELL COUNT,WBC 9.77 K/uL (4.0-11.0)
[2022-09-29 06:23] LABS: A/G RATIO 0.8 (0.9-1.6); ALBUMIN 2.4 g/dL (3.4-5.0); BILIRUBIN TOTAL 0.7 mg/dL (0.2-1.0); CALCIUM 7.9 mg/dL (8.5-10.1); CARBON DIOXIDE,CO2 28.2 mmol/L (21.0-32.0); CREATININE 0.8 mg/dL (0.6-1.0); EST CRCL DRUG DOSING (CG) 69.83 mL/min; PROTEIN TOTAL,TP 5.3 g/dL (6.4-8.2)
[2022-09-29] MEDS: Ketorolac 30 MG/ML SDV IVPUSH PRN ×2 (08:21→17:11)
[2022-09-29] MEDS: Ondansetron 4 MG/2 ML SDV IVPUSH PRN (08:22)
[2022-09-30] MEDS: Acetaminophen/oxyCODONE 325-5 MG Tab PO PRN ×2 (03:36→07:41)
[2022-09-30] MEDS: Lactated Ringers 1,000 ML IV SCH (07:42)
== END 2022-09-30 09:47 | disposition home or self-care (01) ==
LOC: MW.SDS 06:18 → MW.MS 12:00 → MW.SDS 09-30 09:47
PROVIDERS: ATTEND Obstetrics & Gynecology
DX: D27.1 Benign neoplasm of left ovary (principal); N80.03 Adenomyosis of the uterus; J45.909 Unspecified asthma, uncomplicated; F43.23 Adjustment disorder with mixed anxiety and depressed mood; F41.9 Anxiety disorder, unspecified; F32.A Depression, unspecified; E66.9 Obesity, unspecified; Z91.048 Other nonmedicinal substance allergy status; Z79.899 Other long term (current) drug therapy; Z98.890 Other specified postprocedural states; Z90.49 Acquired absence of other specified parts of digestive tract; Z68.34 Body mass index [BMI] 34.0-34.9, adult
CPT/HCPCS: 36415; 57268; 58552; 80048; 80053; 81025; 85025; 85027; 86850; 86900; 86901; A9270; J0131; J1885; J2270; J2405; J2704; J2795; J3010; J3490; J7030; J7120; Q9968